=== PATIENT | male | born 1960 | race Caucasian/White ===

== ENCOUNTER 2017-04-26 19:07 | Inpatient (IN) | payer OTHER ==
[2017-04-26 19:28] LABS: ADD MAN DIFF? NO
[2017-04-26 19:31] LABS: BASO # 0.1 x10^3/uL (0.0-0.2); BASO % 1 % (0-3); EOS # 0.3 x10^3/uL (0.0-0.7); EOS % 3 % (0-3); HEMATOCRIT 47.3 % (39.0-53.0); HEMOGLOBIN 15.9 g/dL (13.0-17.5); LYMPH # 2.7 x10^3/uL (1.0-4.8); LYMPH % 29 % (24-48); MEAN CORPUSCULAR HEMOGLOBIN 30 pg (25-35); MEAN CORPUSCULAR HGB CONC 34 g/dL (31-37); MEAN CORPUSCULAR VOLUME 90 fL (79-100); MONO # 0.7 x10^3/uL (0.0-1.1); MONO % 7 % (0-9); NEUT # 5.8 x10^3uL (1.8-7.7); NEUT % 61 % (31-73); PLATELET COUNT 223 x10^3/uL (140-400); RED BLOOD COUNT 5.25 x10^6/uL (4.30-5.70); RED CELL DISTRIBUTION WIDTH 15.3 % (11.5-14.5); WHITE BLOOD COUNT 9.5 x10^3/uL (4.0-11.0)
[2017-04-26] MEDS: IV NORMAL SALINE 1000ML BAG 1,000 ML IV ×2 (19:40→22:22)
[2017-04-26] MEDS: ONDANSETRON PF 4 MG/2 ML VIAL. IV (19:40)
[2017-04-26] MEDS: fentaNYL PF VIAL 100 MCG/2 ML VIAL IV (19:43)
[2017-04-26 19:47] LABS: ANION GAP 10 (6-14); BLOOD UREA NITROGEN 11 mg/dL (8-26); BUN/CREATININE RATIO 8 (6-20); CALCIUM 8.6 mg/dL (8.5-10.1); CARBON DIOXIDE 27 mmol/L (21-32); CHLORIDE 100 mmol/L (98-107); CREATININE 1.3 mg/dL (0.7-1.3); GFR 56.5; GLUCOSE 114 mg/dL (70-99); POTASSIUM 4.1 mmol/L (3.5-5.1); SODIUM 137 mmol/L (136-145)
[2017-04-26 19:53] LABS: ALBUMIN 3.7 g/dL (3.4-5.0); ALBUMIN/GLOBULIN RATIO 0.8 (1.0-1.7); ALK PHOS 106 U/L (46-116); ALT (SGPT) 15 U/L (16-63); AST (SGOT) 33 U/L (15-37); LIPASE 412 U/L (73-393); TOTAL BILIRUBIN 0.4 mg/dL (0.2-1.0); TOTAL PROTEIN 8.2 g/dL (6.4-8.2)
[2017-04-26] MEDS: MORPHINE SULFATE 4 MG/ML DISP.SYRIN. IV ×2 (20:37→22:22)
[2017-04-26] MEDS ORDERED: ONDANSETRON PF 4 MG/2 ML VIAL. IV (21:00)
[2017-04-26] MEDS: IPRATRPIUM/ALBUTEROL 0.5/2.5MG 3 ML NEBU. NEB (21:14)
[2017-04-26 22:01] LABS: BILIRUBIN,URINE NEGATIVE (NEG); CLARITY,URINE TURBID; COLOR,URINE YELLOW; GLUCOSE,URINE NEGATIVE (NEG); NITRITE,URINE NEGATIVE (NEG); PROTEIN,URINE 100 mg/dL (NEG-TRACE)
[2017-04-26 22:15] LABS: BACTERIA,URINE FEW /HPF (0-FEW); HYALINE CASTS, URINE FEW /HPF; RBC,URINE 0 /HPF (0-2)
[2017-04-27] MEDS: MORPHINE SULFATE 4 MG/ML DISP.SYRIN. IV ×3 (00:28→09:01)
[2017-04-27 06:08] LABS: ADD MAN DIFF? NO; BASO % 1 % (0-3); EOS # 0.2 x10^3/uL (0.0-0.7); EOS % 3 % (0-3); HEMATOCRIT 45.5 % (39.0-53.0); HEMOGLOBIN 15.1 g/dL (13.0-17.5); LYMPH % 26 % (24-48); MEAN CORPUSCULAR HEMOGLOBIN 31 pg (25-35); MEAN CORPUSCULAR HGB CONC 33 g/dL (31-37); MEAN CORPUSCULAR VOLUME 93 fL (79-100); MONO # 0.6 x10^3/uL (0.0-1.1); MONO % 7 % (0-9); NEUT % 63 % (31-73); PLATELET COUNT 199 x10^3/uL (140-400); RED BLOOD COUNT 4.92 x10^6/uL (4.30-5.70); RED CELL DISTRIBUTION WIDTH 15.1 % (11.5-14.5); WHITE BLOOD COUNT 7.9 x10^3/uL (4.0-11.0)
[2017-04-27 06:20] LABS: ANION GAP 7 (6-14); BLOOD UREA NITROGEN 12 mg/dL (8-26); CALCIUM 8.2 mg/dL (8.5-10.1); CARBON DIOXIDE 30 mmol/L (21-32); CHLORIDE 103 mmol/L (98-107); CREATININE 1.4 mg/dL (0.7-1.3); GFR 51.9; GLUCOSE 123 mg/dL (70-99); SODIUM 140 mmol/L (136-145)
[2017-04-27] MEDS: IV NORMAL SALINE 1000ML BAG 1,000 ML IV ×3 (06:27→21:01)
[2017-04-27] MEDS ORDERED: ONDANSETRON PF 4 MG/2 ML VIAL. IV (07:00)
[2017-04-27] MEDS ORDERED: ACETAMINOPHEN 500 MG TABLET PO (07:00)
[2017-04-27] MEDS ORDERED: NON FORMULARY ITEM (Albuterol Sulfate (Ventolin Hfa Inhaler) 2 PUFF) INH (08:00)
[2017-04-27] MEDS: METOPROLOL TART IMMED RELEASE 25 MG TABLET. PO (08:59)
[2017-04-27] MEDS: LEVOTHYROXINE 100 MCG TABLET PO (08:59)
[2017-04-27] MEDS: hydroCHLOROthiazide 25 MG TABLET PO (09:00)
[2017-04-27] MEDS: CYCLOBENZAPRINE 10 MG TABLET. PO (09:00)
[2017-04-27] MEDS: POTASSIUM CHLORIDE 20 MEQ TABLET.ER. PO (09:00)
[2017-04-27] MEDS ORDERED: NON FORMULARY ITEM (Tiotropium Bromide (Spiriva) 2 INH) IH (09:00)
[2017-04-27] MEDS: FUROSEMIDE 20 MG TABLET PO (09:00)
[2017-04-27] MEDS: PANTOPRAZOLE 40 MG TABLET.DR. PO (09:00)
[2017-04-27] MEDS: ISOSORBIDE MONONITRATE ER 30 MG TAB.ER.24H PO (09:00)
[2017-04-27] MEDS: LISINOPRIL 20 MG TABLET PO (09:00)
[2017-04-27] MEDS: BUDESONIDE 0.5 MG/2 ML NEBU. NEB ×2 (10:53→20:27)
[2017-04-27] MEDS: ALBUTEROL SULFATE 2.5 MG/3 ML NEBU. NEB ×2 (10:54→15:28)
[2017-04-27 17:41] LABS: POC GLUCOSE 92 mg/dL (70-99)
[2017-04-27 18:00] LABS: BASE EXCESS ABG -2 mmol/L (-3-3); HCO3 ABG 27 mmol/L (21-28); PCO2 ABG 58 mmHg (35-46); PH ABG 7.27 (7.35-7.45); PO2 ABG 88 mmHg (65-108); SAT O2 ABG 96 % (92-99)
[2017-04-27 18:32] LABS: ANION GAP 7 (6-14); BLOOD UREA NITROGEN 17 mg/dL (8-26); CARBON DIOXIDE 29 mmol/L (21-32); CHLORIDE 104 mmol/L (98-107); CREATININE 2.3 mg/dL (0.7-1.3); GFR 29.2; GLUCOSE 98 mg/dL (70-99); POTASSIUM 4.8 mmol/L (3.5-5.1); SODIUM 140 mmol/L (136-145)
[2017-04-27 18:33] LABS: LIPASE 307 U/L (73-393)
[2017-04-27] MEDS: IPRATRPIUM/ALBUTEROL 0.5/2.5MG 3 ML NEBU. NEB (20:27)
[2017-04-27] MEDS: SIMVASTATIN 20 MG TABLET PO (21:00)
[2017-04-27 22:06] LABS: BASE EXCESS ABG -5 mmol/L (-3-3); HCO3 ABG 24 mmol/L (21-28); PCO2 ABG 59 mmHg (35-46); PO2 ABG 67 mmHg (65-108); SAT O2 ABG 92 % (92-99)
[2017-04-27 22:07] LABS: PH ABG 7.22 (7.35-7.45)
[2017-04-27 22:11] LABS: LACTIC ACID 0.4 mmol/L (0.4-2.0)
[2017-04-27 22:22] LABS: FREE T4 0.32 ng/dL (0.76-1.46)
[2017-04-27 22:45] LABS: THYROID STIM HORMONE (TSH) 99.282 uIU/mL (0.358-3.74)
[2017-04-28 06:23] LABS: ANION GAP 9 (6-14); BLOOD UREA NITROGEN 17 mg/dL (8-26); CALCIUM 7.7 mg/dL (8.5-10.1); CARBON DIOXIDE 27 mmol/L (21-32); CHLORIDE 105 mmol/L (98-107); CREATININE 2.4 mg/dL (0.7-1.3); GFR 27.8; GLUCOSE 67 mg/dL (70-99); LIPASE 258 U/L (73-393); POTASSIUM 4.4 mmol/L (3.5-5.1); SODIUM 141 mmol/L (136-145)
[2017-04-28] MEDS: POTASSIUM CHLORIDE 20 MEQ TABLET.ER. PO (07:52)
[2017-04-28] MEDS: PANTOPRAZOLE 40 MG TABLET.DR. PO (07:52)
[2017-04-28] MEDS: LEVOTHYROXINE 100 MCG TABLET PO (07:52)
[2017-04-28] MEDS: IV DEXTROSE 5 %-0.45 % NACL 1,000 ML IV ×2 (07:52→21:20)
[2017-04-28] MEDS: BUDESONIDE 0.5 MG/2 ML NEBU. NEB ×2 (07:54→21:04)
[2017-04-28] MEDS: IPRATRPIUM/ALBUTEROL 0.5/2.5MG 3 ML NEBU. NEB ×4 (07:55→21:04)
[2017-04-28 08:30] LABS: BASE EXCESS ABG 0 mmol/L (-3-3); HCO3 ABG 27 mmol/L (21-28); PO2 ABG 65 mmHg (65-108); SAT O2 ABG 93 % (92-99)
[2017-04-28 09:13] LABS: PH ABG 7.34 (7.35-7.45)
[2017-04-28 09:14] LABS: FIO2 ABG 24; PCO2 ABG 51 mmHg (35-46)
[2017-04-28 09:32] LABS: TROPONINI < 0.017 ng/mL (0.000-0.055)
[2017-04-28 10:53] LABS: ALBUMIN 3.2 g/dL (3.4-5.0); ALK PHOS 78 U/L (46-116); ALT (SGPT) 11 U/L (16-63); AST (SGOT) 27 U/L (15-37); DIRECT BILIRUBIN 0.1 mg/dL (0.0-0.2); TOTAL BILIRUBIN 0.5 mg/dL (0.2-1.0); TOTAL PROTEIN 6.7 g/dL (6.4-8.2)
[2017-04-28] MEDS: HEPARIN PF for SUB-Q USE 5,000 UNIT/0.5 ML VIAL. SQ ×2 (14:00→22:06)
[2017-04-28] MEDS: HYDROcodone/APAP 7.5/325MG 1 TAB TABLET PO (15:07)
[2017-04-28] MEDS: MORPHINE SULFATE 2 MG/ML DISP.SYRIN. IV ×3 (15:07→22:34)
[2017-04-28] MEDS: AMINO AC 3%/ELECTROLYTE/GLYCER 1,000 ML IV (17:30)
[2017-04-28] MEDS: hydrALAZINE 20 MG/ML VIAL. IVP ×2 (18:18→22:06)
[2017-04-28] MEDS: SIMVASTATIN 20 MG TABLET PO (21:00)
[2017-04-28 23:08] LABS: MRSA BY PCR Negative (Negative)
[2017-04-29] MEDS: HALOPERIDOL LACTATE 5 MG/ML VIAL. IVP ×5 (00:02→22:07)
[2017-04-29] MEDS: hydrALAZINE 20 MG/ML VIAL. IVP ×4 (02:51→19:05)
[2017-04-29] MEDS: MORPHINE SULFATE 2 MG/ML DISP.SYRIN. IV (03:35)
[2017-04-29 05:09] LABS: ADD MAN DIFF? NO
[2017-04-29 05:16] LABS: BASO % 0 % (0-3); EOS # 0.2 x10^3/uL (0.0-0.7); EOS % 2 % (0-3); LYMPH # 2.9 x10^3/uL (1.0-4.8); LYMPH % 33 % (24-48); MEAN CORPUSCULAR HEMOGLOBIN 30 pg (25-35); MEAN CORPUSCULAR HGB CONC 33 g/dL (31-37); MEAN CORPUSCULAR VOLUME 91 fL (79-100); MONO # 0.6 x10^3/uL (0.0-1.1); MONO % 7 % (0-9); NEUT % 58 % (31-73); PLATELET COUNT 204 x10^3/uL (140-400); RED BLOOD COUNT 4.93 x10^6/uL (4.30-5.70); RED CELL DISTRIBUTION WIDTH 15.6 % (11.5-14.5); WHITE BLOOD COUNT 8.8 x10^3/uL (4.0-11.0)
[2017-04-29] MEDS: HEPARIN PF for SUB-Q USE 5,000 UNIT/0.5 ML VIAL. SQ ×3 (05:55→22:13)
[2017-04-29 05:56] LABS: ALBUMIN 3.4 g/dL (3.4-5.0); ALBUMIN/GLOBULIN RATIO 0.8 (1.0-1.7); ALK PHOS 80 U/L (46-116); ALT (SGPT) 13 U/L (16-63); ANION GAP 11 (6-14); AST (SGOT) 28 U/L (15-37); BLOOD UREA NITROGEN 16 mg/dL (8-26); BUN/CREATININE RATIO 15 (6-20); CALCIUM 8.9 mg/dL (8.5-10.1); CARBON DIOXIDE 25 mmol/L (21-32); CHLORIDE 99 mmol/L (98-107); CREATININE 1.1 mg/dL (0.7-1.3); GFR 68.5; GLUCOSE 117 mg/dL (70-99); LIPASE 190 U/L (73-393); POTASSIUM 3.9 mmol/L (3.5-5.1); SODIUM 135 mmol/L (136-145); TOTAL BILIRUBIN 0.6 mg/dL (0.2-1.0); TOTAL PROTEIN 7.5 g/dL (6.4-8.2)
[2017-04-29] MEDS: LEVOTHYROXINE 100 MCG TABLET PO (07:00)
[2017-04-29] MEDS: PANTOPRAZOLE 40 MG TABLET.DR. PO (07:30)
[2017-04-29] MEDS: POTASSIUM CHLORIDE 20 MEQ TABLET.ER. PO (08:00)
[2017-04-29] MEDS: IPRATRPIUM/ALBUTEROL 0.5/2.5MG 3 ML NEBU. NEB ×4 (08:38→19:55)
[2017-04-29] MEDS: BUDESONIDE 0.5 MG/2 ML NEBU. NEB ×2 (08:38→19:55)
[2017-04-29 08:52] LABS: BASE EXCESS ABG -1 mmol/L (-3-3); HCO3 ABG 23 mmol/L (21-28); PO2 ABG 84 mmHg (65-108); SAT O2 ABG 96 % (92-99)
[2017-04-29 08:54] LABS: PH ABG 7.41 (7.35-7.45)
[2017-04-29 08:55] LABS: PCO2 ABG 37 mmHg (35-46)
[2017-04-29] MEDS: AMINO AC 3%/ELECTROLYTE/GLYCER 1,000 ML IV ×2 (08:58→17:57)
[2017-04-29] MEDS ORDERED: cloNIDine HCL 0.1 MG TABLET PO (09:45)
[2017-04-29] MEDS: IV DEXTROSE 5 %-0.45 % NACL 1,000 ML IV (10:40)
[2017-04-29] MEDS: SIMVASTATIN 20 MG TABLET PO (20:35)
[2017-04-30] MEDS: hydrALAZINE 20 MG/ML VIAL. IVP ×4 (04:07→23:11)
[2017-04-30 05:12] LABS: ADD MAN DIFF? NO
[2017-04-30 05:26] LABS: BASO % 0 % (0-3); EOS # 0.1 x10^3/uL (0.0-0.7); EOS % 1 % (0-3); HEMATOCRIT 47.2 % (39.0-53.0); HEMOGLOBIN 15.8 g/dL (13.0-17.5); LYMPH # 1.2 x10^3/uL (1.0-4.8); LYMPH % 11 % (24-48); MEAN CORPUSCULAR HEMOGLOBIN 31 pg (25-35); MEAN CORPUSCULAR HGB CONC 33 g/dL (31-37); MEAN CORPUSCULAR VOLUME 92 fL (79-100); MONO # 0.7 x10^3/uL (0.0-1.1); MONO % 6 % (0-9); NEUT # 8.9 x10^3uL (1.8-7.7); NEUT % 81 % (31-73); PLATELET COUNT 240 x10^3/uL (140-400); RED BLOOD COUNT 5.16 x10^6/uL (4.30-5.70); RED CELL DISTRIBUTION WIDTH 15.6 % (11.5-14.5)
[2017-04-30 06:00] LABS: ALBUMIN 3.1 g/dL (3.4-5.0); ALBUMIN/GLOBULIN RATIO 0.7 (1.0-1.7); ALK PHOS 79 U/L (46-116); ALT (SGPT) 8 U/L (16-63); ANION GAP 10 (6-14); AST (SGOT) 28 U/L (15-37); BLOOD UREA NITROGEN 16 mg/dL (8-26); BUN/CREATININE RATIO 15 (6-20); CALCIUM 8.8 mg/dL (8.5-10.1); CARBON DIOXIDE 26 mmol/L (21-32); CHLORIDE 96 mmol/L (98-107); CREATININE 1.1 mg/dL (0.7-1.3); GFR 68.5; GLUCOSE 121 mg/dL (70-99); LIPASE 147 U/L (73-393); SODIUM 132 mmol/L (136-145); TOTAL BILIRUBIN 0.8 mg/dL (0.2-1.0); TOTAL PROTEIN 7.4 g/dL (6.4-8.2)
[2017-04-30] MEDS: HALOPERIDOL LACTATE 5 MG/ML VIAL. IVP ×3 (06:22→21:25)
[2017-04-30] MEDS: HEPARIN PF for SUB-Q USE 5,000 UNIT/0.5 ML VIAL. SQ ×3 (06:24→21:26)
[2017-04-30] MEDS: LEVOTHYROXINE 100 MCG TABLET PO (07:00)
[2017-04-30] MEDS: PANTOPRAZOLE 40 MG TABLET.DR. PO (07:30)
[2017-04-30] MEDS: POTASSIUM CHLORIDE 20 MEQ TABLET.ER. PO (08:00)
[2017-04-30] MEDS: IPRATRPIUM/ALBUTEROL 0.5/2.5MG 3 ML NEBU. NEB ×3 (08:19→20:04)
[2017-04-30] MEDS: BUDESONIDE 0.5 MG/2 ML NEBU. NEB ×2 (08:19→20:04)
[2017-04-30] MEDS: IV DEXTROSE 5 %-0.45 % NACL 1,000 ML IV ×2 (09:10)
[2017-04-30] MEDS: LEVOTHYROXINE SODIUM 50 MCG in IV NORMAL SALINE 50ML 5 ML IVP (10:12)
[2017-04-30] MEDS: AMINO AC 3%/ELECTROLYTE/GLYCER 1,000 ML IV (10:56)
[2017-04-30] MEDS: PANTOPRAZOLE IV PUSH 40 MG VIAL. IVP (10:57)
[2017-04-30] MEDS: SIMVASTATIN 20 MG TABLET PO (21:00)
[2017-05-01] MEDS: AMINO AC 3%/ELECTROLYTE/GLYCER 1,000 ML IV ×2 (02:05→08:00)
[2017-05-01] MEDS: IV DEXTROSE 5 %-0.45 % NACL 1,000 ML IV (02:40)
[2017-05-01 05:24] LABS: ADD MAN DIFF? NO
[2017-05-01 05:33] LABS: BASO % 0 % (0-3); EOS # 0.1 x10^3/uL (0.0-0.7); EOS % 2 % (0-3); HEMATOCRIT 47.9 % (39.0-53.0); LYMPH # 1.6 x10^3/uL (1.0-4.8); LYMPH % 19 % (24-48); MEAN CORPUSCULAR HEMOGLOBIN 31 pg (25-35); MEAN CORPUSCULAR HGB CONC 33 g/dL (31-37); MEAN CORPUSCULAR VOLUME 91 fL (79-100); MONO # 0.6 x10^3/uL (0.0-1.1); MONO % 7 % (0-9); NEUT % 72 % (31-73); PLATELET COUNT 232 x10^3/uL (140-400); RED BLOOD COUNT 5.24 x10^6/uL (4.30-5.70); RED CELL DISTRIBUTION WIDTH 15.6 % (11.5-14.5); WHITE BLOOD COUNT 8.3 x10^3/uL (4.0-11.0)
[2017-05-01] MEDS: HALOPERIDOL LACTATE 5 MG/ML VIAL. IVP ×3 (06:01→21:21)
[2017-05-01] MEDS: HEPARIN PF for SUB-Q USE 5,000 UNIT/0.5 ML VIAL. SQ ×3 (06:02→21:44)
[2017-05-01 06:04] LABS: ALBUMIN 3.1 g/dL (3.4-5.0); ALBUMIN/GLOBULIN RATIO 0.7 (1.0-1.7); ALK PHOS 86 U/L (46-116); ALT (SGPT) 14 U/L (16-63); ANION GAP 9 (6-14); AST (SGOT) 34 U/L (15-37); BLOOD UREA NITROGEN 19 mg/dL (8-26); BUN/CREATININE RATIO 19 (6-20); CALCIUM 8.6 mg/dL (8.5-10.1); CARBON DIOXIDE 25 mmol/L (21-32); CHLORIDE 96 mmol/L (98-107); GFR 76.5; GLUCOSE 111 mg/dL (70-99); LIPASE 188 U/L (73-393); POTASSIUM 4.2 mmol/L (3.5-5.1); SODIUM 130 mmol/L (136-145); TOTAL BILIRUBIN 0.8 mg/dL (0.2-1.0); TOTAL PROTEIN 7.5 g/dL (6.4-8.2)
[2017-05-01] MEDS: POTASSIUM CHLORIDE 20 MEQ TABLET.ER. PO (08:00)
[2017-05-01] MEDS: IPRATRPIUM/ALBUTEROL 0.5/2.5MG 3 ML NEBU. NEB ×4 (08:07→20:18)
[2017-05-01] MEDS: BUDESONIDE 0.5 MG/2 ML NEBU. NEB ×2 (08:07→20:18)
[2017-05-01] MEDS: PANTOPRAZOLE IV PUSH 40 MG VIAL. IVP (08:27)
[2017-05-01] MEDS: LEVOTHYROXINE SODIUM 50 MCG in IV NORMAL SALINE 50ML 5 ML IVP (08:28)
[2017-05-01] MEDS ORDERED: DEXAMETHASONE SOD PHOS 20 MG/5 ML VIAL. (09:10)
[2017-05-01] MEDS ORDERED: PROPOFOL 20 ML IV (09:10)
[2017-05-01] MEDS ORDERED: LIDOCAINE 2% PF Vial for OR 5 ML VIAL. (09:10)
[2017-05-01] MEDS ORDERED: MIDAZOLAM HCL/PF 2 MG/2 ML VIAL. ×2 (09:10→09:58)
[2017-05-01] MEDS ORDERED: fentaNYL PF VIAL 100 MCG/2 ML VIAL (09:10)
[2017-05-01] MEDS ORDERED: ONDANSETRON PF 4 MG/2 ML VIAL. (09:10)
[2017-05-01] MEDS ORDERED: ROCURONIUM 50 MG/5 ML VIAL. (09:10)
[2017-05-01] MEDS ORDERED: IOHEXOL 300 MG/ML 100ML VIAL. (09:55)
[2017-05-01] MEDS ORDERED: SURGICEL HEMOSTAT 4X8 EACH. (09:55)
[2017-05-01] MEDS: IV RINGERS,LACTATED 1000ML 1,000 ML IV (10:21)
[2017-05-01] MEDS ORDERED: fentaNYL PF VIAL 100 MCG/2 ML VIAL IV (10:30)
[2017-05-01] MEDS ORDERED: MORPHINE SULFATE 2 MG/ML DISP.SYRIN. IV (10:30)
[2017-05-01] MEDS ORDERED: LIDOCAINE 1% PF 2 ML VIAL. ID (10:30)
[2017-05-01] MEDS ORDERED: HYDROmorphone 2 MG/ML VIAL IV (10:30)
[2017-05-01] MEDS ORDERED: ONDANSETRON PF 4 MG/2 ML VIAL. IV (10:30)
[2017-05-01] MEDS ORDERED: PROCHLORPERAZINE 10 MG/2 ML VIAL. IV (10:30)
[2017-05-01] MEDS ORDERED: ePHEDrine PF IN SALINE 50 MG/5 ML DISP.SYRIN IV ×2 (11:10→11:34)
[2017-05-01] MEDS: ELECTROLYTE IV (11:12)
[2017-05-01] MEDS: SODIUM CHLORIDE IV (11:12)
[2017-05-01] MEDS: GLYCER IV (11:12)
[2017-05-01] MEDS: AMINO AC IV (11:12)
[2017-05-01] MEDS ORDERED: ceFAZolin 1GM IVPB FOR OMNI 100 ML IV (11:15)
[2017-05-01] MEDS: BUPIVAC MPF-EPI 0.5%-1:200000 30 ML VIAL. (11:21)
[2017-05-01] MEDS ORDERED: ALBUMIN HUMAN 5% 500 ML IV (11:35)
[2017-05-01] MEDS ORDERED: EPINEPHrine SYRINGE 1 MG/10 ML SYRINGE (11:39)
[2017-05-01] MEDS ORDERED: PHENYLEPHRINE in 0.9% NACL PF 1 MG/10 ML SYRINGE. IV (11:52)
[2017-05-01] MEDS: fentaNYL PF VIAL 100 MCG/2 ML VIAL IV ×2 (12:32→12:48)
[2017-05-01] MEDS ORDERED: PROPOFOL 100 ML IV (12:46)
[2017-05-01] MEDS: PROPOFOL 100 ML IV (12:55)
[2017-05-01] MEDS: MORPHINE SULFATE 2 MG/ML DISP.SYRIN. IV (12:56)
[2017-05-01] MEDS: ALBUMIN HUMAN 5% 500 ML IV (16:09)
[2017-05-01] MEDS: MULTIVIT INFUSN,ADULT 4,VIT K 10 ML, THIAMINE 100 MG, FOLIC ACID 1 MG in IV RINGERS,LAC... IV (16:12)
[2017-05-01] MEDS: MIDAZOLAM 100MG/100ML PREMIX 100 ML IV (16:27)
[2017-05-01] MEDS: IV NORMAL SALINE 1000ML BAG 1,000 ML IV (17:00)
[2017-05-01] MEDS ORDERED: PIP/TAZO PER PHARMACY MC (17:15)
[2017-05-01] MEDS: PIPERACILLIN/TAZO IV Push 3.375 GM VIAL. IVP (18:32)
[2017-05-01] MEDS: SIMVASTATIN 20 MG TABLET PO (21:20)
[2017-05-01] MEDS: LACTOBACILLUS RHAMNOSUS GG 1 CAPSULE. PO (21:20)
[2017-05-02] MEDS: PIPERACILLIN/TAZO IV Push 3.375 GM VIAL. IVP ×4 (00:12→18:24)
[2017-05-02] MEDS: ELECTROLYTE IV ×2 (01:48→15:29)
[2017-05-02] MEDS: GLYCER IV ×2 (01:48→15:29)
[2017-05-02] MEDS: AMINO AC IV ×2 (01:48→15:29)
[2017-05-02] MEDS: SODIUM CHLORIDE IV ×2 (01:48→15:29)
[2017-05-02] MEDS: MIDAZOLAM 100MG/100ML PREMIX 100 ML IV ×2 (05:18→20:09)
[2017-05-02 05:51] LABS: ADD MAN DIFF? NO
[2017-05-02 05:57] LABS: BASO % 0 % (0-3); EOS # 0.1 x10^3/uL (0.0-0.7); EOS % 2 % (0-3); HEMATOCRIT 38.8 % (39.0-53.0); HEMOGLOBIN 12.6 g/dL (13.0-17.5); LYMPH # 1.4 x10^3/uL (1.0-4.8); LYMPH % 19 % (24-48); MEAN CORPUSCULAR HEMOGLOBIN 30 pg (25-35); MEAN CORPUSCULAR HGB CONC 33 g/dL (31-37); MEAN CORPUSCULAR VOLUME 93 fL (79-100); MONO # 0.6 x10^3/uL (0.0-1.1); MONO % 8 % (0-9); NEUT # 5.4 x10^3uL (1.8-7.7); NEUT % 71 % (31-73); PLATELET COUNT 193 x10^3/uL (140-400); RED BLOOD COUNT 4.16 x10^6/uL (4.30-5.70); WHITE BLOOD COUNT 7.6 x10^3/uL (4.0-11.0)
[2017-05-02] MEDS: HEPARIN PF for SUB-Q USE 5,000 UNIT/0.5 ML VIAL. SQ ×3 (06:01→22:03)
[2017-05-02] MEDS: HALOPERIDOL LACTATE 5 MG/ML VIAL. IVP ×5 (06:01→22:03)
[2017-05-02 06:39] LABS: ALBUMIN 3.2 g/dL (3.4-5.0); ALBUMIN/GLOBULIN RATIO 0.9 (1.0-1.7); ALK PHOS 62 U/L (46-116); ALT (SGPT) 19 U/L (16-63); ANION GAP 9 (6-14); AST (SGOT) 56 U/L (15-37); BLOOD UREA NITROGEN 24 mg/dL (8-26); BUN/CREATININE RATIO 16 (6-20); CALCIUM 7.9 mg/dL (8.5-10.1); CARBON DIOXIDE 25 mmol/L (21-32); CHLORIDE 102 mmol/L (98-107); CREATININE 1.5 mg/dL (0.7-1.3); GFR 47.9; GLUCOSE 102 mg/dL (70-99); LIPASE 181 U/L (73-393); POTASSIUM 4.5 mmol/L (3.5-5.1); SODIUM 136 mmol/L (136-145); TOTAL BILIRUBIN 0.6 mg/dL (0.2-1.0); TOTAL PROTEIN 6.6 g/dL (6.4-8.2)
[2017-05-02] MEDS: MORPHINE SULFATE 2 MG/ML DISP.SYRIN. IV ×4 (07:39→19:30)
[2017-05-02] MEDS: IPRATRPIUM/ALBUTEROL 0.5/2.5MG 3 ML NEBU. NEB ×4 (07:52→19:59)
[2017-05-02] MEDS: BUDESONIDE 0.5 MG/2 ML NEBU. NEB ×2 (07:52→19:59)
[2017-05-02] MEDS: PANTOPRAZOLE IV PUSH 40 MG VIAL. IVP (08:39)
[2017-05-02] MEDS: THIAMINE 100 MG TABLET. PO (08:39)
[2017-05-02] MEDS: FOLIC/VIT B COMP W-C (RENAL) TABLET. PO (08:39)
[2017-05-02] MEDS: LEVOTHYROXINE SODIUM 50 MCG in IV NORMAL SALINE 50ML 5 ML IVP (08:39)
[2017-05-02] MEDS: LACTOBACILLUS RHAMNOSUS GG 1 CAPSULE. PO ×2 (08:39→21:21)
[2017-05-02] MEDS: POTASSIUM CHLORIDE 20 MEQ TABLET.ER. PO (08:40)
[2017-05-02 09:15] LABS: BASE EXCESS ABG -1 mmol/L (-3-3); HCO3 ABG 24 mmol/L (21-28); PCO2 ABG 41 mmHg (35-46); PH ABG 7.39 (7.35-7.45); PO2 ABG 81 mmHg (65-108); SAT O2 ABG 96 % (92-99)
[2017-05-02 09:18] LABS: FIO2 ABG 40
[2017-05-02] MEDS: SIMVASTATIN 20 MG TABLET PO (21:21)
[2017-05-02] MEDS: CHLORHEXIDINE 0.12% 15 ML MOUTHWASH. MM (21:21)
[2017-05-03] MEDS: PIPERACILLIN/TAZO IV Push 3.375 GM VIAL. IVP ×5 (00:30→23:54)
[2017-05-03] MEDS: MORPHINE SULFATE 2 MG/ML DISP.SYRIN. IV ×3 (00:30→23:56)
[2017-05-03] MEDS: HALOPERIDOL LACTATE 5 MG/ML VIAL. IVP ×3 (05:52→22:05)
[2017-05-03] MEDS: GLYCER IV ×3 (05:52→19:19)
[2017-05-03] MEDS: SODIUM CHLORIDE IV ×3 (05:52→19:19)
[2017-05-03] MEDS: AMINO AC IV ×3 (05:52→19:19)
[2017-05-03] MEDS: ELECTROLYTE IV ×3 (05:52→19:19)
[2017-05-03] MEDS: HEPARIN PF for SUB-Q USE 5,000 UNIT/0.5 ML VIAL. SQ ×3 (05:53→22:06)
[2017-05-03 06:40] LABS: ADD MAN DIFF? NO
[2017-05-03 06:47] LABS: BASO % 1 % (0-3); EOS # 0.2 x10^3/uL (0.0-0.7); EOS % 3 % (0-3); HEMATOCRIT 36.5 % (39.0-53.0); HEMOGLOBIN 11.9 g/dL (13.0-17.5); LYMPH # 1.7 x10^3/uL (1.0-4.8); LYMPH % 25 % (24-48); MEAN CORPUSCULAR HEMOGLOBIN 30 pg (25-35); MEAN CORPUSCULAR HGB CONC 33 g/dL (31-37); MEAN CORPUSCULAR VOLUME 92 fL (79-100); MONO # 0.6 x10^3/uL (0.0-1.1); MONO % 9 % (0-9); NEUT # 4.3 x10^3uL (1.8-7.7); NEUT % 63 % (31-73); PLATELET COUNT 180 x10^3/uL (140-400); RED BLOOD COUNT 3.97 x10^6/uL (4.30-5.70); WHITE BLOOD COUNT 6.9 x10^3/uL (4.0-11.0)
[2017-05-03 07:10] LABS: ALBUMIN 2.8 g/dL (3.4-5.0); ALBUMIN/GLOBULIN RATIO 0.8 (1.0-1.7); ALK PHOS 69 U/L (46-116); ALT (SGPT) 20 U/L (16-63); ANION GAP 7 (6-14); AST (SGOT) 52 U/L (15-37); BLOOD UREA NITROGEN 23 mg/dL (8-26); BUN/CREATININE RATIO 19 (6-20); CALCIUM 8.3 mg/dL (8.5-10.1); CARBON DIOXIDE 26 mmol/L (21-32); CHLORIDE 103 mmol/L (98-107); CREATININE 1.2 mg/dL (0.7-1.3); GLUCOSE 107 mg/dL (70-99); LIPASE 174 U/L (73-393); POTASSIUM 4.2 mmol/L (3.5-5.1); SODIUM 136 mmol/L (136-145); TOTAL BILIRUBIN 0.6 mg/dL (0.2-1.0); TOTAL PROTEIN 6.2 g/dL (6.4-8.2)
[2017-05-03] MEDS: MIDAZOLAM 100MG/100ML PREMIX 100 ML IV ×2 (08:04→20:38)
[2017-05-03] MEDS: BUDESONIDE 0.5 MG/2 ML NEBU. NEB ×2 (08:49→20:30)
[2017-05-03] MEDS: IPRATRPIUM/ALBUTEROL 0.5/2.5MG 3 ML NEBU. NEB ×4 (08:49→20:30)
[2017-05-03 09:02] LABS: BASE EXCESS ABG -2 mmol/L (-3-3); HCO3 ABG 21 mmol/L (21-28); PCO2 ABG 29 mmHg (35-46); PH ABG 7.47 (7.35-7.45); PO2 ABG 106 mmHg (65-108); SAT O2 ABG 98 % (92-99)
[2017-05-03 09:05] LABS: FIO2 ABG 40
[2017-05-03] MEDS: LEVOTHYROXINE SODIUM 50 MCG in IV NORMAL SALINE 50ML 5 ML IVP (09:22)
[2017-05-03] MEDS: PANTOPRAZOLE IV PUSH 40 MG VIAL. IVP (09:22)
[2017-05-03] MEDS: THIAMINE 100 MG TABLET. PO (09:22)
[2017-05-03] MEDS: FOLIC/VIT B COMP W-C (RENAL) TABLET. PO (09:22)
[2017-05-03] MEDS: CHLORHEXIDINE 0.12% 15 ML MOUTHWASH. MM ×2 (09:22→20:40)
[2017-05-03] MEDS: POTASSIUM CHLORIDE 20 MEQ TABLET.ER. PO (09:27)
[2017-05-03] MEDS: LACTOBACILLUS RHAMNOSUS GG 1 CAPSULE. PO ×2 (09:34→20:38)
[2017-05-03] MEDS: SIMVASTATIN 20 MG TABLET PO (20:38)
[2017-05-04] MEDS: MIDAZOLAM 100MG/100ML PREMIX 100 ML IV (04:07)
[2017-05-04 04:32] LABS: ADD MAN DIFF? NO
[2017-05-04 04:51] LABS: BASO % 0 % (0-3); EOS # 0.2 x10^3/uL (0.0-0.7); EOS % 4 % (0-3); HEMATOCRIT 38.5 % (39.0-53.0); HEMOGLOBIN 12.5 g/dL (13.0-17.5); LYMPH # 1.7 x10^3/uL (1.0-4.8); LYMPH % 26 % (24-48); MEAN CORPUSCULAR HEMOGLOBIN 30 pg (25-35); MEAN CORPUSCULAR HGB CONC 33 g/dL (31-37); MEAN CORPUSCULAR VOLUME 93 fL (79-100); MONO # 0.7 x10^3/uL (0.0-1.1); MONO % 10 % (0-9); NEUT % 60 % (31-73); PLATELET COUNT 176 x10^3/uL (140-400); RED BLOOD COUNT 4.14 x10^6/uL (4.30-5.70); RED CELL DISTRIBUTION WIDTH 16.3 % (11.5-14.5); WHITE BLOOD COUNT 6.7 x10^3/uL (4.0-11.0)
[2017-05-04 04:56] LABS: ALBUMIN 2.8 g/dL (3.4-5.0); ALBUMIN/GLOBULIN RATIO 0.8 (1.0-1.7); ALK PHOS 79 U/L (46-116); ALT (SGPT) 21 U/L (16-63); ANION GAP 8 (6-14); AST (SGOT) 45 U/L (15-37); BLOOD UREA NITROGEN 22 mg/dL (8-26); BUN/CREATININE RATIO 18 (6-20); CALCIUM 8.7 mg/dL (8.5-10.1); CARBON DIOXIDE 28 mmol/L (21-32); CHLORIDE 101 mmol/L (98-107); CREATININE 1.2 mg/dL (0.7-1.3); GLUCOSE 99 mg/dL (70-99); LIPASE 149 U/L (73-393); POTASSIUM 4.3 mmol/L (3.5-5.1); SODIUM 137 mmol/L (136-145); TOTAL BILIRUBIN 0.5 mg/dL (0.2-1.0); TOTAL PROTEIN 6.5 g/dL (6.4-8.2)
[2017-05-04] MEDS: HALOPERIDOL LACTATE 5 MG/ML VIAL. IVP (05:52)
[2017-05-04] MEDS: PIPERACILLIN/TAZO IV Push 3.375 GM VIAL. IVP ×4 (05:52→23:06)
[2017-05-04] MEDS: SODIUM CHLORIDE IV ×3 (06:03→23:06)
[2017-05-04] MEDS: GLYCER IV ×3 (06:03→23:06)
[2017-05-04] MEDS: AMINO AC IV ×3 (06:03→23:06)
[2017-05-04] MEDS: ELECTROLYTE IV ×3 (06:03→23:06)
[2017-05-04] MEDS: HEPARIN PF for SUB-Q USE 5,000 UNIT/0.5 ML VIAL. SQ ×3 (06:05→21:11)
[2017-05-04] MEDS: IPRATRPIUM/ALBUTEROL 0.5/2.5MG 3 ML NEBU. NEB ×4 (07:13→20:02)
[2017-05-04] MEDS: BUDESONIDE 0.5 MG/2 ML NEBU. NEB ×2 (07:13→20:02)
[2017-05-04] MEDS: PANTOPRAZOLE IV PUSH 40 MG VIAL. IVP (07:46)
[2017-05-04] MEDS: FOLIC/VIT B COMP W-C (RENAL) TABLET. PO (07:47)
[2017-05-04] MEDS: LACTOBACILLUS RHAMNOSUS GG 1 CAPSULE. PO ×2 (07:47→21:09)
[2017-05-04] MEDS: THIAMINE 100 MG TABLET. PO (07:47)
[2017-05-04] MEDS: CHLORHEXIDINE 0.12% 15 ML MOUTHWASH. MM (07:48)
[2017-05-04] MEDS: POTASSIUM CHLORIDE 20 MEQ TABLET.ER. PO (08:00)
[2017-05-04] MEDS: LEVOTHYROXINE SODIUM 50 MCG in IV NORMAL SALINE 50ML 5 ML IVP (08:09)
[2017-05-04 09:54] LABS: BASE EXCESS ABG -2 mmol/L (-3-3); HCO3 ABG 23 mmol/L (21-28); PCO2 ABG 39 mmHg (35-46); PH ABG 7.38 (7.35-7.45); PO2 ABG 98 mmHg (65-108); SAT O2 ABG 97 % (92-99)
[2017-05-04 09:56] LABS: FIO2 ABG 40
[2017-05-04] MEDS: MORPHINE SULFATE 2 MG/ML DISP.SYRIN. IV (19:26)
[2017-05-04] MEDS ORDERED: MIDAZOLAM 100MG/100ML PREMIX 100 ML IV (20:45)
[2017-05-04] MEDS: SIMVASTATIN 20 MG TABLET PO (21:09)
[2017-05-04] MEDS: HYDROcodone/APAP 7.5/325MG 1 TAB TABLET PO (23:06)
[2017-05-05 05:46] LABS: ADD MAN DIFF? NO
[2017-05-05] MEDS: PIPERACILLIN/TAZO IV Push 3.375 GM VIAL. IVP ×2 (06:18→12:47)
[2017-05-05 06:20] LABS: BASO % 0 % (0-3); EOS # 0.3 x10^3/uL (0.0-0.7); EOS % 5 % (0-3); HEMATOCRIT 37.5 % (39.0-53.0); HEMOGLOBIN 12.9 g/dL (13.0-17.5); LYMPH # 1.7 x10^3/uL (1.0-4.8); LYMPH % 27 % (24-48); MEAN CORPUSCULAR HEMOGLOBIN 32 pg (25-35); MEAN CORPUSCULAR HGB CONC 34 g/dL (31-37); MEAN CORPUSCULAR VOLUME 93 fL (79-100); MONO # 0.5 x10^3/uL (0.0-1.1); MONO % 8 % (0-9); NEUT # 3.9 x10^3uL (1.8-7.7); NEUT % 60 % (31-73); PLATELET COUNT 212 x10^3/uL (140-400); RED BLOOD COUNT 4.05 x10^6/uL (4.30-5.70); RED CELL DISTRIBUTION WIDTH 15.8 % (11.5-14.5); WHITE BLOOD COUNT 6.5 x10^3/uL (4.0-11.0)
[2017-05-05] MEDS: HYDROcodone/APAP 7.5/325MG 1 TAB TABLET PO ×3 (06:20→20:10)
[2017-05-05] MEDS: HEPARIN PF for SUB-Q USE 5,000 UNIT/0.5 ML VIAL. SQ ×3 (06:22→21:14)
[2017-05-05 06:46] LABS: ALBUMIN 3.1 g/dL (3.4-5.0); ALBUMIN/GLOBULIN RATIO 0.8 (1.0-1.7); ALK PHOS 99 U/L (46-116); ALT (SGPT) 20 U/L (16-63); ANION GAP 8 (6-14); AST (SGOT) 43 U/L (15-37); BLOOD UREA NITROGEN 21 mg/dL (8-26); BUN/CREATININE RATIO 19 (6-20); CALCIUM 8.5 mg/dL (8.5-10.1); CARBON DIOXIDE 28 mmol/L (21-32); CHLORIDE 103 mmol/L (98-107); CREATININE 1.1 mg/dL (0.7-1.3); GFR 68.5; GLUCOSE 88 mg/dL (70-99); SODIUM 139 mmol/L (136-145); TOTAL BILIRUBIN 0.5 mg/dL (0.2-1.0); TOTAL PROTEIN 7.1 g/dL (6.4-8.2)
[2017-05-05] MEDS: THIAMINE 100 MG TABLET. PO (08:11)
[2017-05-05] MEDS: LACTOBACILLUS RHAMNOSUS GG 1 CAPSULE. PO ×2 (08:11→20:10)
[2017-05-05] MEDS: POTASSIUM CHLORIDE 20 MEQ TABLET.ER. PO (08:11)
[2017-05-05] MEDS: FOLIC/VIT B COMP W-C (RENAL) TABLET. PO (08:11)
[2017-05-05] MEDS: PANTOPRAZOLE IV PUSH 40 MG VIAL. IVP (08:11)
[2017-05-05] MEDS: BUDESONIDE 0.5 MG/2 ML NEBU. NEB ×2 (09:37→18:11)
[2017-05-05] MEDS: IPRATRPIUM/ALBUTEROL 0.5/2.5MG 3 ML NEBU. NEB ×4 (09:37→18:11)
[2017-05-05] MEDS: LEVOTHYROXINE SODIUM 50 MCG in IV NORMAL SALINE 50ML 5 ML IVP (11:04)
[2017-05-05] MEDS: SIMVASTATIN 20 MG TABLET PO (20:10)
[2017-05-05] MEDS: AMOXICILLIN/K CLAV 875/125MG TABLET. PO (20:10)
[2017-05-06] MEDS: ALBUTEROL SULFATE 2.5 MG/3 ML NEBU. NEB (02:03)
[2017-05-06 05:10] LABS: ADD MAN DIFF? NO
[2017-05-06 05:21] LABS: BASO % 1 % (0-3); EOS # 0.3 x10^3/uL (0.0-0.7); EOS % 6 % (0-3); HEMATOCRIT 37.3 % (39.0-53.0); HEMOGLOBIN 12.5 g/dL (13.0-17.5); LYMPH # 1.7 x10^3/uL (1.0-4.8); LYMPH % 32 % (24-48); MEAN CORPUSCULAR HEMOGLOBIN 30 pg (25-35); MEAN CORPUSCULAR HGB CONC 34 g/dL (31-37); MEAN CORPUSCULAR VOLUME 91 fL (79-100); MONO # 0.5 x10^3/uL (0.0-1.1); MONO % 9 % (0-9); NEUT # 2.8 x10^3uL (1.8-7.7); NEUT % 52 % (31-73); PLATELET COUNT 224 x10^3/uL (140-400); RED CELL DISTRIBUTION WIDTH 15.2 % (11.5-14.5); WHITE BLOOD COUNT 5.4 x10^3/uL (4.0-11.0)
[2017-05-06] MEDS: HEPARIN PF for SUB-Q USE 5,000 UNIT/0.5 ML VIAL. SQ (05:23)
[2017-05-06] MEDS: HYDROcodone/APAP 7.5/325MG 1 TAB TABLET PO ×2 (05:26→12:18)
[2017-05-06 05:44] LABS: ALBUMIN 3.1 g/dL (3.4-5.0); ALBUMIN/GLOBULIN RATIO 0.9 (1.0-1.7); ALK PHOS 108 U/L (46-116); ALT (SGPT) 11 U/L (16-63); ANION GAP 8 (6-14); AST (SGOT) 45 U/L (15-37); BLOOD UREA NITROGEN 20 mg/dL (8-26); BUN/CREATININE RATIO 18 (6-20); CALCIUM 8.3 mg/dL (8.5-10.1); CARBON DIOXIDE 27 mmol/L (21-32); CHLORIDE 102 mmol/L (98-107); CREATININE 1.1 mg/dL (0.7-1.3); GFR 68.5; GLUCOSE 105 mg/dL (70-99); POTASSIUM 3.8 mmol/L (3.5-5.1); SODIUM 137 mmol/L (136-145); TOTAL BILIRUBIN 0.3 mg/dL (0.2-1.0); TOTAL PROTEIN 6.7 g/dL (6.4-8.2)
[2017-05-06] MEDS: BUDESONIDE 0.5 MG/2 ML NEBU. NEB (06:07)
[2017-05-06] MEDS: IPRATRPIUM/ALBUTEROL 0.5/2.5MG 3 ML NEBU. NEB (06:07)
[2017-05-06] MEDS: FOLIC/VIT B COMP W-C (RENAL) TABLET. PO (09:18)
[2017-05-06] MEDS: PANTOPRAZOLE 40 MG TABLET.DR. PO (09:18)
[2017-05-06] MEDS: AMOXICILLIN/K CLAV 875/125MG TABLET. PO (09:18)
[2017-05-06] MEDS: LEVOTHYROXINE 100 MCG TABLET PO (09:18)
[2017-05-06] MEDS: LACTOBACILLUS RHAMNOSUS GG 1 CAPSULE. PO (09:18)
[2017-05-06] MEDS: THIAMINE 100 MG TABLET. PO (09:18)
[2017-05-06] MEDS: POTASSIUM CHLORIDE 20 MEQ TABLET.ER. PO (09:19)
== END 2017-05-06 12:30 | disposition home health service (06) | DRG 417 ==
LOC: 6 SOUTH 05-05 12:06 → ER 19:07 → 4 NORTH 04-27 19:14 → 1 WEST ICU 04-27 22:35 → 4 NORTH 20:26
PROC: 0FT44ZZ Resection of Gallbladder, Percutaneous Endoscopic Approach (ICD-10-PCS; principal; 2017-05-01 10:15)
PROC: 5A1945Z Respiratory Ventilation, 24-96 Consecutive Hours (ICD-10-PCS; 2017-05-01 10:15)
PROC: 0BH17EZ Insertion of Endotracheal Airway into Trachea, Via Natural or Artificial Opening (ICD-10-PCS; 2017-05-01 10:15)
DX: K85.10 Biliary acute pancreatitis without necrosis or infection (principal); J96.01 Acute respiratory failure with hypoxia; G92 Toxic encephalopathy; N17.9 Acute kidney failure, unspecified; J18.9 Pneumonia, unspecified organism; J90 Pleural effusion, not elsewhere classified; J96.02 Acute respiratory failure with hypercapnia; J44.0 Chronic obstructive pulmonary disease with (acute) lower respiratory infection; K80.10 Calculus of gallbladder with chronic cholecystitis without obstruction; E66.2 Morbid (severe) obesity with alveolar hypoventilation; F10.239 Alcohol dependence with withdrawal, unspecified; J44.1 Chronic obstructive pulmonary disease with (acute) exacerbation; J98.11 Atelectasis; I48.91 Unspecified atrial fibrillation; E03.9 Hypothyroidism, unspecified; F12.90 Cannabis use, unspecified, uncomplicated; F17.210 Nicotine dependence, cigarettes, uncomplicated; G62.9 Polyneuropathy, unspecified; F41.1 Generalized anxiety disorder; F44.5 Conversion disorder with seizures or convulsions; I10 Essential (primary) hypertension; I25.10 Atherosclerotic heart disease of native coronary artery without angina pectoris; K21.9 Gastro-esophageal reflux disease without esophagitis; M10.9 Gout, unspecified; I25.2 Old myocardial infarction; Z68.39 Body mass index [BMI] 39.0-39.9, adult; Z79.02 Long term (current) use of antithrombotics/antiplatelets; Z79.82 Long term (current) use of aspirin; Z95.5 Presence of coronary angioplasty implant and graft; Z68.38 Body mass index [BMI] 38.0-38.9, adult; Z88.8 Allergy status to other drugs, medicaments and biological substances
CPT/HCPCS: 36415; 36600; 71010; 71045; 74018; 76705; 80048; 80053; 80076; 81001; 82805; 82962; 83605; 83690; 84439; 84443; 84481; 84484; 85025; 87070; 87205; 87641; 88304; 93005; 93306; 94002; 94003; 94640; 94660; 94760; 95816; 96361; 96374; 96375; 99285-25; 99406; C9113; J0171; J0360; J0690; J1100; J1630; J2060; J2250; J2270; J2370; J2405; J2543; J2704; J3010; J3490; J7030; J7120; J7613; J7620; J7626; P9045; Q9967

== ENCOUNTER 2018-02-22 19:13 | Inpatient (IN) | payer SELFPAY ==
[~2018-02-22] VITALS: Ht 177.8 cm; Wt 61.0 kg
[~2018-02-22 19:13] MED LIST: AMOX1TAB11 PO; ASPI325T8 PO; Aspirin PO; BUDE10.2; CLOP75TA57 PO; CYCL10TA2 PO; FURO20TA3 PO; HYDR-2679 PO; HYDR-2762 PO; Hydrocodone/Acetaminophen PO; ISOS30TA4 PO; LEVO100T5 PO; LEVO150T PO; LISI1TAB7 PO; Metoprolol Tartrate PO; OMEP20TA8 PO; OXYC1TAB7 PO; POTA20TA82 PO; SIMV10TA PO; SIMV10TA3 PO; SIMV20TA3 PO; TIOT18CA IH; VENTOLIN HFA18 GM INH
[2018-02-22] MEDS ORDERED: IV NORMAL SALINE 1000ML BAG 1,000 ML IV SCH (19:22)
[2018-02-22] MEDS ORDERED: MAGNESIUM SULFATE 2GM 50 ML IV ONE (19:30)
[2018-02-22] MEDS ORDERED: methylPREDNISolone SOD SUCC PF 125 MG/2 ML VIAL. IV ONE (19:30)
[2018-02-22] MEDS ORDERED: ONDANSETRON PF 4 MG/2 ML VIAL. IV ONE (19:30)
[2018-02-22] MEDS ORDERED: MORPHINE SULFATE 4 MG/ML VIAL. IV ONE (19:30)
--- NOTE | 2018-02-22 19:39 | PHYS DOC ---
Past Medical History Past Medical History: COPD, Gallstones, Hypothyroid, IA Past Surgical History: Other Additional Past Surgical Histo: cardiac cath with stent placement on 12/21 Alcohol Use: Rarely Drug Use: Marijuana Adult General Chief Complaint Chief Complaint: SHORTNESS OF BREATH HPI HPI Patient is a 57-year-old male who presents via EMS with report of respiratory distress. Patient reportedly has been having shortness of breath is been worsening over the last week. Shortness of breath has gotten much worse in the last 24 hours. Patient reportedly recently moved into a new apartment building and the apartment that he had moved into was being treated for black mold and apparently there had been a lot of bleach that had been used for the cleaning. Per EMS, patient's nausea and saturation had been in the low 60s upon their arrival. Patient was initiated on CPAP and was given a total of 4 doses of albuterol while in route. On oxygen, patient's O2 sat noted to be in the high 90s. Patient's still very short of breath upon arrival and additional history is limited due to shortness of breath. Review of Systems Review of Systems Constitutional: Denies fever or chills [] Respiratory: Complains of cough and shortness of breath [] Musculoskeletal: Denies back pain or joint pain [] Integument: Denies rash or skin lesions [] Unable to fully assess review of systems due to severity of patient's symptoms. Current Medications Current Medications Current Medications Medications (Trade) Dose Ordered Sig/Genesis Start Time Stop Time Status Last Admin Dose Admin Acetaminophen (Tylenol) 500 mg PRN Q6HRS PRN 02/22/18 22:45 Acetaminophen/ Codeine Phosphate (Tylenol #3) 1 tab PRN Q6HRS PRN 02/22/18 22:45 Albuterol Sulfate (Ventolin Neb Soln) 2.5 mg PRN Q4HRS PRN 02/22/18 23:00 Albuterol/ Ipratropium (Duoneb) 3 ml RTQID 02/23/18 08:00 Budesonide (Pulmicort) 0.5 mg RTBID 02/23/18 08:00 Clopidogrel Bisulfate (Plavix) 75 mg DAILYWBKFT 02/23/18 08:00 Diphenhydramine HCl (Benadryl) 25 mg PRN QHS PRN 02/22/18 22:45 Furosemide (Lasix) 20 mg DAILY 02/23/18 09:00 Hydralazine HCl (Apresoline Inj) 20 mg 1X ONCE 02/22/18 23:00 02/22/18 23:01 02/22/18 22:52 20 MG Isosorbide Mononitrate (Imdur) 30 mg DAILY 02/23/18 09:00 Levothyroxine Sodium (Synthroid) 150 mcg DAILY06 02/23/18 06:00 Lorazepam (Ativan) 1 mg 1X ONCE 02/22/18 22:00 02/22/18 22:01 DC 02/22/18 22:26 1 MG Magnesium Sulfate 50 ml @ 25 mls/hr 1X ONCE 02/22/18 19:30 02/22/18 21:29 DC 02/22/18 20:19 25 MLS/HR Methylprednisolone Sodium Succinate (SOLU-Medrol 125MG VIAL) 125 mg 1X ONCE 02/22/18 19:30 02/22/18 19:32 DC 02/22/18 20:18 125 MG Morphine Sulfate (Morphine Sulfate) 4 mg 1X ONCE 02/22/18 19:30 02/22/18 19:33 DC Non-Formulary Medication (Albuterol Sulfate (Ventolin Hfa Inhaler)) 2 puff Q4HRS 02/23/18 00:00 UNV Non-Formulary Medication (Tiotropium Effie (Spiriva)) 2 inh DAILY 02/23/18 09:00 UNV Ondansetron HCl (Zofran Odt) 4 mg PRN Q6HRS PRN 02/22/18 22:45 Ondansetron HCl (Zofran) 4 mg PRN Q6HRS PRN 02/22/18 22:45 Oxycodone/ Acetaminophen (Percocet 5/325) 1 tab PRN Q4HRS PRN 02/22/18 22:45 Pantoprazole Sodium (Protonix) 40 mg DAILYAC 02/23/18 07:30 Simvastatin (Zocor) 20 mg HS 02/23/18 21:00 Sodium Chloride 1,000 ml @ 100 mls/hr Q10H 02/22/18 19:22 02/23/18 05:21 02/22/18 20:19 100 MLS/HR Allergies Allergies Allergies Coded Allergies Type Severity Reaction Last Updated Verified ibuprofen Allergy Severe Swelling 1/4/18 Yes Physical Exam Physical Exam Constitutional: Well developed, well nourished, in mild respiratory distress. [] HENT: Normocephalic, atraumatic, bilateral external ears normal, oropharynx moist, no oral exudates, nose normal. [] Eyes: PERRLA, EOMI, conjunctiva normal, no discharge. [] Neck: Normal range of motion, no tenderness, supple, no stridor. [] Cardiovascular:Heart rate regular rhythm [] Lungs & Thorax: Lungs demonstrate reduced breath sounds bilaterally with faint expiratory wheezes noted bilaterally[] Abdomen: Bowel sounds normal, soft. [] Skin: Warm, dry, no erythema, no rash. [] Extremities: No tenderness, no cyanosis, no clubbing, ROM intact. [] Neurologic: Alert and oriented, no focal deficits noted. [] Current Patient Data Vital Signs Vital Signs Date Time Temp Pulse Resp B/P (MAP) Pulse Ox O2 Delivery O2 Flow Rate FiO2 02/22/18 22:52 56 202/112 02/22/18 22:15 94 BiPAP/CPAP 02/22/18 19:13 97.4 22 97.4 Lab Values Laboratory Tests Test 02/22/18 19:22 02/22/18 20:08 02/22/18 20:52 O2 Saturation 97 % (92-99) 96 % (92-99) Arterial Blood pH 7.33 (7.35-7.45) L 7.28 (7.35-7.45) L Arterial Blood pCO2 at Patient Temp 69 mmHg (35-46) *H 74 mmHg (35-46) *H Arterial Blood pO2 at Patient Temp 106 mmHg (65-108) 94 mmHg (65-108) Arterial Blood HCO3 36 mmol/L (21-28) H 34 mmol/L (21-28) H Arterial Blood Base Excess 7 mmol/L (-3-3) H 5 mmol/L (-3-3) H White Blood Count 7.1 x10^3/uL (4.0-11.0) Red Blood Count 4.68 x10^6/uL (4.30-5.70) Hemoglobin 14.3 g/dL (13.0-17.5) Hematocrit 42.0 % (39.0-53.0) Mean Corpuscular Volume 90 fL (79-100) Mean Corpuscular Hemoglobin 31 pg (25-35) Mean Corpuscular Hemoglobin Concent 34 g/dL (31-37) Red Cell Distribution Width 15.1 % (11.5-14.5) H Platelet Count 208 x10^3/uL (140-400) Neutrophils (%) (Auto) 68 % (31-73) Lymphocytes (%) (Auto) 20 % (24-48) L Monocytes (%) (Auto) 7 % (0-9) Eosinophils (%) (Auto) 5 % (0-3) H Basophils (%) (Auto) 1 % (0-3) Neutrophils # (Auto) 4.8 x10^3uL (1.8-7.7) Lymphocytes # (Auto) 1.4 x10^3/uL (1.0-4.8) Monocytes # (Auto) 0.5 x10^3/uL (0.0-1.1) Eosinophils # (Auto) 0.3 x10^3/uL (0.0-0.7) Basophils # (Auto) 0.0 x10^3/uL (0.0-0.2) Sodium Level 141 mmol/L (136-145) Potassium Level 4.0 mmol/L (3.5-5.1) Chloride Level 100 mmol/L (98-107) Carbon Dioxide Level 37 mmol/L (21-32) H Anion Gap 4 (6-14) L Blood Urea Nitrogen 18 mg/dL (8-26) Creatinine 1.4 mg/dL (0.7-1.3) H Estimated GFR (Cockcroft-Gault) 51.9 BUN/Creatinine Ratio 13 (6-20) Glucose Level 100 mg/dL (70-99) H Calcium Level 9.2 mg/dL (8.5-10.1) Total Bilirubin 0.4 mg/dL (0.2-1.0) Aspartate Amino Transferase (AST) 44 U/L (15-37) H Alanine Aminotransferase (ALT) 18 U/L (16-63) Alkaline Phosphatase 67 U/L (46-116) Troponin I Quantitative < 0.017 ng/mL (0.000-0.055) YF-Vde-G-Type Natriuretic Peptide 363 pg/mL (0-124) H Total Protein 7.6 g/dL (6.4-8.2) Albumin 4.0 g/dL (3.4-5.0) Albumin/Globulin Ratio 1.1 (1.0-1.7) FiO2 35 Laboratory Tests 02/22/18 20:08 Laboratory Tests 02/22/18 20:08 EKG EKG [] Interpretation Time: EKG demonstrates sinus bradycardia with rate of 51. Radiology/Procedures Radiology/Procedures [] Impressions: Chest x-ray demonstrates no acute process. Course & Med Decision Making Course & Med Decision Making Pertinent Labs and Imaging studies reviewed. (See chart for details) [] Dragon Disclaimer Dragon Disclaimer This electronic medical record was generated, in whole or in part, using a voice recognition dictation system. Departure Departure Impression: Primary Impression: Acute hypercapnic respiratory failure Additional Impressions: COPD with acute exacerbation Altered mental status Disposition: 09 ADMITTED INPATIENT Admitting Physician: Whitney Castañeda Condition: IMPROVED Referrals: NO PCP (PCP) Problem Qualifiers Additional Impressions: Altered mental status Altered mental status type: unspecified Qualified Codes: R41.82 - Altered mental status, unspecified EDWINA LINARES Jr. DO Feb 22, 2018 19:39
[2018-02-22 19:54] LABS: BASE EXCESS ABG 7 mmol/L (-3-3); HCO3 ABG 36 mmol/L (21-28); PO2 ABG 106 mmHg (65-108); SAT O2 ABG 97 % (92-99)
[2018-02-22 20:29] LABS: BASO % 1 % (0-3); EOS # 0.3 x10^3/uL (0.0-0.7); EOS % 5 % (0-3); HEMOGLOBIN 14.3 g/dL (13.0-17.5); LYMPH # 1.4 x10^3/uL (1.0-4.8); LYMPH % 20 % (24-48); MEAN CORPUSCULAR HEMOGLOBIN 31 pg (25-35); MEAN CORPUSCULAR HGB CONC 34 g/dL (31-37); MEAN CORPUSCULAR VOLUME 90 fL (79-100); MONO # 0.5 x10^3/uL (0.0-1.1); MONO % 7 % (0-9); NEUT # 4.8 x10^3uL (1.8-7.7); NEUT % 68 % (31-73); PLATELET COUNT 208 x10^3/uL (140-400); RED BLOOD COUNT 4.68 x10^6/uL (4.30-5.70); RED CELL DISTRIBUTION WIDTH 15.1 % (11.5-14.5); WHITE BLOOD COUNT 7.1 x10^3/uL (4.0-11.0)
[2018-02-22 20:38] LABS: CALCIUM 9.2 mg/dL (8.5-10.1); CREATININE 1.4 mg/dL (0.7-1.3); GFR 51.9
[2018-02-22 20:42] LABS: ALBUMIN/GLOBULIN RATIO 1.1 (1.0-1.7); TOTAL BILIRUBIN 0.4 mg/dL (0.2-1.0); TOTAL PROTEIN 7.6 g/dL (6.4-8.2)
[2018-02-22 22:17] LABS: BASE EXCESS ABG 5 mmol/L (-3-3); HCO3 ABG 34 mmol/L (21-28); PO2 ABG 94 mmHg (65-108); SAT O2 ABG 96 % (92-99)
[2018-02-22 22:19] LABS: PCO2 ABG 69 mmHg (35-46)
[2018-02-22 22:32] LABS: PCO2 ABG 74 mmHg (35-46)
[2018-02-22 22:33] LABS: FIO2 ABG 35
[2018-02-22] MEDS ORDERED: diphenhydrAMINE HCL 25 MG CAPSULE PO PRN (22:45)
[2018-02-22] MEDS ORDERED: ACETAMINOPHEN/CODEINE 300/30MG TABLET. PO PRN (22:45)
[2018-02-22] MEDS ORDERED: ONDANSETRON ODT 4 MG TAB.RAPDIS. PO PRN (22:45)
[2018-02-22] MEDS ORDERED: ACETAMINOPHEN 500 MG TABLET PO PRN (22:45)
[2018-02-22] MEDS ORDERED: ONDANSETRON PF 4 MG/2 ML VIAL. IV PRN (22:45)
[2018-02-22] MEDS ORDERED: ALBUTEROL SULFATE 2.5 MG/3 ML NEBU. NEB PRN (23:00)
[2018-02-22] MEDS ORDERED: hydrALAZINE 20 MG/ML VIAL. IVP ONE (23:00)
[2018-02-22] MEDS ORDERED: ZIPRASIDONE IM 20 MG VIAL. IM ONE (23:30)
--- NOTE | 2018-02-22 23:49 | RAD ---
Indication:Dyspnea TECHNIQUE:Portable AP chest X-ray COMPARISON:None FINDINGS: Heart is normal in size. Diffuse interstitial opacities are seen without focal consolidation. No pneumothorax or pleural effusion. Visualized bony thorax is within normal limits. IMPRESSION: Findings suggests mild interstitial pulmonary edema or atypical/viral infection. Electronically signed by: Margarito Livingston DO (02/22/2018 11:46 PM) [facility]
[2018-02-23] VITALS (14 sets, daily range): BP systolic 103–163; BP diastolic 58–88
[2018-02-23] MEDS ORDERED: NON FORMULARY ITEM (Albuterol Sulfate (Ventolin Hfa Inhaler) 2 PUFF) INH SCH
[2018-02-23] MEDS ORDERED: ZIPRASIDONE IM 20 MG VIAL. IM ONE
[2018-02-23 01:23] LABS: BASE EXCESS ABG 2 mmol/L (-3-3); HCO3 ABG 28 mmol/L (21-28); PCO2 ABG 50 mmHg (35-46); PO2 ABG 102 mmHg (65-108); SAT O2 ABG 97 % (92-99)
[2018-02-23 01:25] LABS: FIO2 ABG 35
[2018-02-23] MEDS: LEVOTHYROXINE 150 MCG TABLET PO SCH ×2 (06:00→11:00)
[2018-02-23] MEDS: PANTOPRAZOLE 40 MG TABLET.DR. PO SCH ×2 (07:30→10:59)
[2018-02-23] MEDS: CLOPIDOGREL BISULFATE 75 MG TABLET PO SCH ×2 (08:00→10:59)
[2018-02-23] MEDS: BUDESONIDE 0.5 MG/2 ML NEBU. NEB SCH ×2 (08:04→19:42)
[2018-02-23] MEDS: IPRATRPIUM/ALBUTEROL 0.5/2.5MG 3 ML NEBU. NEB SCH ×4 (08:04→19:42)
[2018-02-23] MEDS: FUROSEMIDE 20 MG TABLET PO SCH ×2 (09:00→11:00)
[2018-02-23] MEDS: ISOSORBIDE MONONITRATE ER 30 MG TAB.ER.24H PO SCH ×2 (09:00→10:59)
[2018-02-23] MEDS ORDERED: NON FORMULARY ITEM (Tiotropium Bromide (Spiriva) 2 INH) IH SCH (09:00)
--- NOTE | 2018-02-23 09:21 | EKG ---
[facility] [address] [place] [address] Test Date: 2018-02-22 Test Time: 19:50:02 Pat Name: MEGAN CENTENO Department: Room: 105 1 Gender: M Spd Manager: : [id number] Requested By: EDWINA LINARES Order Number: [id number] Reading MD: Kiet Gordillo MD Measurements Intervals [place] Rate: 51 P: 31 [place]: 186 QRS: -49 QRSD: 100 T: 131 QT: 450 QTc: 417 Interpretive Statements SINUS RHYTHM ATRIAL PREMATURE COMPLEX(ES) NON-SPECIFIC ST/T CHANGES Electronically Signed On 02-25-2018 11:30:57 CDT by Kiet Gordillo MD
[2018-02-23 10:23] LABS: BASO % 0 % (0-3); EOS % 0 % (0-3); HEMOGLOBIN 15.3 g/dL (13.0-17.5); LYMPH # 0.7 x10^3/uL (1.0-4.8); LYMPH % 11 % (24-48); MEAN CORPUSCULAR HEMOGLOBIN 31 pg (25-35); MEAN CORPUSCULAR HGB CONC 34 g/dL (31-37); MEAN CORPUSCULAR VOLUME 91 fL (79-100); MONO # 0.1 x10^3/uL (0.0-1.1); MONO % 2 % (0-9); NEUT # 5.6 x10^3uL (1.8-7.7); NEUT % 87 % (31-73); PLATELET COUNT 230 x10^3/uL (140-400); RED BLOOD COUNT 4.96 x10^6/uL (4.30-5.70); WHITE BLOOD COUNT 6.5 x10^3/uL (4.0-11.0)
[2018-02-23 10:38] LABS: CREATININE 1.3 mg/dL (0.7-1.3); GFR 56.5; POTASSIUM 4.7 mmol/L (3.5-5.1)
[2018-02-23 10:40] LABS: % BANDS 11 % (0-9); % LYMPHS 11 % (24-48); % MONOS 1 % (0-10); % SEGS 77 % (35-66)
[2018-02-23 10:43] LABS: PLT ESTIMATE ADEQUATE (ADEQUATE)
[2018-02-23] MEDS: oxyCODONE/APAP 5/325 1 TAB TABLET PO PRN ×3 (10:59→20:01)
--- NOTE | 2018-02-23 11:06 | PDOC ---
PULMONARY PROGRESS NOTES Vitals Vital Signs Date Time Temp Pulse Resp B/P (MAP) Pulse Ox O2 Delivery O2 Flow Rate FiO2 02/23/18 10:00 60 18 152/80 (104) 100 BiPAP/CPAP 02/23/18 07:00 97.0 97.0 General: Alert HEENT: Other Lungs: Clear Cardiovascular: S1, S2 Abdomen: Soft, Non-tender Extremities: No Edema Labs Laboratory Tests Test 02/22/18 19:22 02/22/18 20:08 02/22/18 20:52 02/22/18 23:39 O2 Saturation 97 % (92-99) 96 % (92-99) 97 % (92-99) Arterial Blood pH 7.33 (7.35-7.45) 7.28 (7.35-7.45) 7.37 (7.35-7.45) Arterial Blood pCO2 at Patient Temp 69 mmHg (35-46) 74 mmHg (35-46) 50 mmHg (35-46) Arterial Blood pO2 at Patient Temp 106 mmHg (65-108) 94 mmHg (65-108) 102 mmHg (65-108) Arterial Blood HCO3 36 mmol/L (21-28) 34 mmol/L (21-28) 28 mmol/L (21-28) Arterial Blood Base Excess 7 mmol/L (-3-3) 5 mmol/L (-3-3) 2 mmol/L (-3-3) White Blood Count 7.1 x10^3/uL (4.0-11.0) Red Blood Count 4.68 x10^6/uL (4.30-5.70) Hemoglobin 14.3 g/dL (13.0-17.5) Hematocrit 42.0 % (39.0-53.0) Mean Corpuscular Volume 90 fL (79-100) Mean Corpuscular Hemoglobin 31 pg (25-35) Mean Corpuscular Hemoglobin Concent 34 g/dL (31-37) Red Cell Distribution Width 15.1 % (11.5-14.5) Platelet Count 208 x10^3/uL (140-400) Neutrophils (%) (Auto) 68 % (31-73) Lymphocytes (%) (Auto) 20 % (24-48) Monocytes (%) (Auto) 7 % (0-9) Eosinophils (%) (Auto) 5 % (0-3) Basophils (%) (Auto) 1 % (0-3) Neutrophils # (Auto) 4.8 x10^3uL (1.8-7.7) Lymphocytes # (Auto) 1.4 x10^3/uL (1.0-4.8) Monocytes # (Auto) 0.5 x10^3/uL (0.0-1.1) Eosinophils # (Auto) 0.3 x10^3/uL (0.0-0.7) Basophils # (Auto) 0.0 x10^3/uL (0.0-0.2) Sodium Level 141 mmol/L (136-145) Potassium Level 4.0 mmol/L (3.5-5.1) Chloride Level 100 mmol/L (98-107) Carbon Dioxide Level 37 mmol/L (21-32) Anion Gap 4 (6-14) Blood Urea Nitrogen 18 mg/dL (8-26) Creatinine 1.4 mg/dL (0.7-1.3) Estimated GFR (Cockcroft-Gault) 51.9 BUN/Creatinine Ratio 13 (6-20) Glucose Level 100 mg/dL (70-99) Calcium Level 9.2 mg/dL (8.5-10.1) Total Bilirubin 0.4 mg/dL (0.2-1.0) Aspartate Amino Transf (AST/SGOT) 44 U/L (15-37) Alanine Aminotransferase (ALT/SGPT) 18 U/L (16-63) Alkaline Phosphatase 67 U/L (46-116) Troponin I Quantitative < 0.017 ng/mL (0.000-0.055) AW-Nrc-A-Type Natriuretic Peptide 363 pg/mL (0-124) Total Protein 7.6 g/dL (6.4-8.2) Albumin 4.0 g/dL (3.4-5.0) Albumin/Globulin Ratio 1.1 (1.0-1.7) FiO2 35 35 Test 02/23/18 10:10 White Blood Count 6.5 x10^3/uL (4.0-11.0) Red Blood Count 4.96 x10^6/uL (4.30-5.70) Hemoglobin 15.3 g/dL (13.0-17.5) Hematocrit 45.0 % (39.0-53.0) Mean Corpuscular Volume 91 fL (79-100) Mean Corpuscular Hemoglobin 31 pg (25-35) Mean Corpuscular Hemoglobin Concent 34 g/dL (31-37) Red Cell Distribution Width 15.0 % (11.5-14.5) Platelet Count 230 x10^3/uL (140-400) Neutrophils (%) (Auto) 87 % (31-73) Lymphocytes (%) (Auto) 11 % (24-48) Monocytes (%) (Auto) 2 % (0-9) Eosinophils (%) (Auto) 0 % (0-3) Basophils (%) (Auto) 0 % (0-3) Neutrophils # (Auto) 5.6 x10^3uL (1.8-7.7) Lymphocytes # (Auto) 0.7 x10^3/uL (1.0-4.8) Monocytes # (Auto) 0.1 x10^3/uL (0.0-1.1) Eosinophils # (Auto) 0.0 x10^3/uL (0.0-0.7) Basophils # (Auto) 0.0 x10^3/uL (0.0-0.2) Segmented Neutrophils % 77 % (35-66) Band Neutrophils % 11 % (0-9) Lymphocytes % 11 % (24-48) Monocytes % 1 % (0-10) Platelet Estimate Adequate (ADEQUATE) Sodium Level 140 mmol/L (136-145) Potassium Level 4.7 mmol/L (3.5-5.1) Chloride Level 101 mmol/L (98-107) Carbon Dioxide Level 31 mmol/L (21-32) Anion Gap 8 (6-14) Blood Urea Nitrogen 17 mg/dL (8-26) Creatinine 1.3 mg/dL (0.7-1.3) Estimated GFR (Cockcroft-Gault) 56.5 Glucose Level 131 mg/dL (70-99) Calcium Level 9.0 mg/dL (8.5-10.1) Laboratory Tests Test 02/22/18 19:22 02/22/18 20:08 02/22/18 20:52 02/22/18 23:39 O2 Saturation 97 % (92-99) 96 % (92-99) 97 % (92-99) Arterial Blood pH 7.33 (7.35-7.45) 7.28 (7.35-7.45) 7.37 (7.35-7.45) Arterial Blood pCO2 at Patient Temp 69 mmHg (35-46) 74 mmHg (35-46) 50 mmHg (35-46) Arterial Blood pO2 at Patient Temp 106 mmHg (65-108) 94 mmHg (65-108) 102 mmHg (65-108) Arterial Blood HCO3 36 mmol/L (21-28) 34 mmol/L (21-28) 28 mmol/L (21-28) Arterial Blood Base Excess 7 mmol/L (-3-3) 5 mmol/L (-3-3) 2 mmol/L (-3-3) White Blood Count 7.1 x10^3/uL (4.0-11.0) Red Blood Count 4.68 x10^6/uL (4.30-5.70) Hemoglobin 14.3 g/dL (13.0-17.5) Hematocrit 42.0 % (39.0-53.0) Mean Corpuscular Volume 90 fL (79-100) Mean Corpuscular Hemoglobin 31 pg (25-35) Mean Corpuscular Hemoglobin Concent 34 g/dL (31-37) Red Cell Distribution Width 15.1 % (11.5-14.5) Platelet Count 208 x10^3/uL (140-400) Neutrophils (%) (Auto) 68 % (31-73) Lymphocytes (%) (Auto) 20 % (24-48) Monocytes (%) (Auto) 7 % (0-9) Eosinophils (%) (Auto) 5 % (0-3) Basophils (%) (Auto) 1 % (0-3) Neutrophils # (Auto) 4.8 x10^3uL (1.8-7.7) Lymphocytes # (Auto) 1.4 x10^3/uL (1.0-4.8) Monocytes # (Auto) 0.5 x10^3/uL (0.0-1.1) Eosinophils # (Auto) 0.3 x10^3/uL (0.0-0.7) Basophils # (Auto) 0.0 x10^3/uL (0.0-0.2) Sodium Level 141 mmol/L (136-145) Potassium Level 4.0 mmol/L (3.5-5.1) Chloride Level 100 mmol/L (98-107) Carbon Dioxide Level 37 mmol/L (21-32) Anion Gap 4 (6-14) Blood Urea Nitrogen 18 mg/dL (8-26) Creatinine 1.4 mg/dL (0.7-1.3) Estimated GFR (Cockcroft-Gault) 51.9 BUN/Creatinine Ratio 13 (6-20) Glucose Level 100 mg/dL (70-99) Calcium Level 9.2 mg/dL (8.5-10.1) Total Bilirubin 0.4 mg/dL (0.2-1.0) Aspartate Amino Transf (AST/SGOT) 44 U/L (15-37) Alanine Aminotransferase (ALT/SGPT) 18 U/L (16-63) Alkaline Phosphatase 67 U/L (46-116) Troponin I Quantitative < 0.017 ng/mL (0.000-0.055) RL-Vre-H-Type Natriuretic Peptide 363 pg/mL (0-124) Total Protein 7.6 g/dL (6.4-8.2) Albumin 4.0 g/dL (3.4-5.0) Albumin/Globulin Ratio 1.1 (1.0-1.7) FiO2 35 35 Test 02/23/18 10:10 White Blood Count 6.5 x10^3/uL (4.0-11.0) Red Blood Count 4.96 x10^6/uL (4.30-5.70) Hemoglobin 15.3 g/dL (13.0-17.5) Hematocrit 45.0 % (39.0-53.0) Mean Corpuscular Volume 91 fL (79-100) Mean Corpuscular Hemoglobin 31 pg (25-35) Mean Corpuscular Hemoglobin Concent 34 g/dL (31-37) Red Cell Distribution Width 15.0 % (11.5-14.5) Platelet Count 230 x10^3/uL (140-400) Neutrophils (%) (Auto) 87 % (31-73) Lymphocytes (%) (Auto) 11 % (24-48) Monocytes (%) (Auto) 2 % (0-9) Eosinophils (%) (Auto) 0 % (0-3) Basophils (%) (Auto) 0 % (0-3) Neutrophils # (Auto) 5.6 x10^3uL (1.8-7.7) Lymphocytes # (Auto) 0.7 x10^3/uL (1.0-4.8) Monocytes # (Auto) 0.1 x10^3/uL (0.0-1.1) Eosinophils # (Auto) 0.0 x10^3/uL (0.0-0.7) Basophils # (Auto) 0.0 x10^3/uL (0.0-0.2) Segmented Neutrophils % 77 % (35-66) Band Neutrophils % 11 % (0-9) Lymphocytes % 11 % (24-48) Monocytes % 1 % (0-10) Platelet Estimate Adequate (ADEQUATE) Sodium Level 140 mmol/L (136-145) Potassium Level 4.7 mmol/L (3.5-5.1) Chloride Level 101 mmol/L (98-107) Carbon Dioxide Level 31 mmol/L (21-32) Anion Gap 8 (6-14) Blood Urea Nitrogen 17 mg/dL (8-26) Creatinine 1.3 mg/dL (0.7-1.3) Estimated GFR (Cockcroft-Gault) 56.5 Glucose Level 131 mg/dL (70-99) Calcium Level 9.0 mg/dL (8.5-10.1) Medications Active Scripts Medications Dose Route/Sig Max Daily Dose Days Date Category Synthroid (Levothyroxine Sodium) 150 Mcg Tablet 150 Mcg PO DAILY06 30 02/14/18 Rx Oxycodone-Acetaminophen 5-325 (Oxycodone Hcl/Acetaminophen) 1 Each Tablet 1 Tab PO PRN Q4HRS PRN 02/14/18 Rx Omeprazole 20 Mg Tablet.dr 1 Tab PO DAILY 02/14/18 Rx Furosemide 20 Mg Tablet 1 Tab PO DAILY 02/14/18 Rx Isosorbide Mononitrate Er (Isosorbide Mononitrate) 30 Mg Tab.er.24h 1 Tab PO DAILY 02/14/18 Rx Simvastatin 20 Mg Tablet 1 Tab PO QHS 02/14/18 Rx Plavix (Clopidogrel Bisulfate) 75 Mg Tablet 75 Mg PO DAILYWBKFT 02/14/18 Rx Symbicort 160-4.5 Mcg Inhaler (Budesonide/Formoterol Fumarate) 10.2 Gm Hfa.aer.ad 03/02/17 Reported Ventolin Hfa Inhaler (Albuterol Sulfate) 18 Gm Hfa.aer.ad 2 Puff INH Q4HRS 02/27/17 Reported Spiriva (Tiotropium Lutz) 18 Mcg Cap.w.dev 2 Inh IH DAILY 02/27/17 Reported Impression . NOTE DICTATED THANKS ACUTE LUNG INJURY TRANSFER OUT OF ICU ROSANA QUINONEZ MD Feb 23, 2018 11:06
[2018-02-23] MEDS: DOXYCYCLINE HYCLATE 100 MG TABLET PO SCH ×2 (11:48→20:01)
[2018-02-23] MEDS: predniSONE 20 MG TABLET PO SCH (11:48)
[2018-02-23 12:18] LABS: BASE EXCESS ABG 1 mmol/L (-3-3); HCO3 ABG 27 mmol/L (21-28); PCO2 ABG 47 mmHg (35-46); PO2 ABG 59 mmHg (65-108); SAT O2 ABG 90 % (92-99)
[2018-02-23 12:20] LABS: FIO2 ABG 21
--- NOTE | 2018-02-23 14:58 | HP ---
ADMIT DATE: 02/23/2018 CHIEF COMPLAINT: Shortness of breath. HISTORY OF PRESENT ILLNESS: The patient is a pleasant elderly male who has known COPD. He presents with shortness of breath, rated at 10/10. He has been worsening over the past few days. Apparently, he has been cleaning his new apartment with bleach; there was mold in the apartment. It appears he has an acute lung injury. He is hypoxic, satting in the 90s. Symptoms are worse with moving, described as agonizing. I have discussed the case with ER physician. We are going to admit the patient to the ICU and consult Dr. Purcell. He was placed on BiPAP. PAST MEDICAL HISTORY: COPD, gallstones, hypothyroidism, cardiac catheterization with stents, marijuana use. ALLERGIES: IBUPROFEN. FAMILY HISTORY: Hypertension. SOCIAL HISTORY: He smokes very little now, but he used to smoke heavily, does not drink, smokes marijuana. No other drugs. MEDICATIONS: Reviewed, please refer to the MRAD. He is on 10 home medications including Spiriva, Ventolin, Plavix, simvastatin, isosorbide, oxycodone, Lasix, Symbicort, omeprazole, and Synthroid. REVIEW OF SYSTEMS: GENERAL: No history of weight change, weakness or fevers. SKIN: No bruising, hair changes or rashes. EYES: No blurred, double or loss of vision. NOSE AND THROAT: No history of nosebleeds, hoarseness or sore throat. HEART: No history of palpitations, chest pain or shortness of breath on exertion. LUNGS: He complains of shortness of breath and cough. GASTROINTESTINAL: Denies changes in appetite, nausea, vomiting, diarrhea or constipation. GENITOURINARY: No history of frequency, urgency, hesitancy or nocturia. NEUROLOGIC: Denies history of numbness, tingling, tremor or weakness. PSYCHIATRIC: No history of panic, anxiety or depression. ENDOCRINE: No history of heat or cold intolerance, polyuria or polydipsia. EXTREMITIES: Denies muscle weakness, joint pain, pain on walking or stiffness. PHYSICAL EXAMINATION: VITAL SIGNS: Temperature 98, pulse 60, respirations 18, blood pressure 147/80, O2 sat 100% on BiPAP. GENERAL: He is awake, alert. HEART: Distant S1, S2 with a soft S3. LUNGS: Diffuse wheezing. ABDOMEN: Soft. Decreased bowel sounds, little or no organomegaly. EXTREMITIES: 1+ edema. SKIN: He has got multiple tattoos. No rashes. ENDOCRINE: No thyromegaly. LYMPHATICS: No cervical nodes. HEMATOPOIETIC: No bruising. LABORATORY DATA: Hematology is normal. Electrolytes are normal. ASSESSMENT AND PLAN: Respiratory failure secondary to acute lung injury, probably from bleach exposure in a middle-aged male who also has chronic obstructive pulmonary disease. The patient is being admitted on BiPAP, we are trying to titrate off the BiPAP. Consult Pulmonary. IV steroids, DuoNebs, home meds, frequent labs, ICU monitoring. PROGNOSIS: Guarded. MICHAEL ANTOINE DO DR: TASHA/latisha JOB#: [id number] / [id number]
[2018-02-23] MEDS: CYCLOBENZAPRINE 10 MG TABLET. PO PRN (15:51)
[2018-02-23] MEDS: guaiFENesin DM 200MG/20MG 10 ML SYRUP PO PRN (15:51)
[2018-02-23] MEDS: LACTOBACILLUS RHAMNOSUS GG 1 CAPSULE. PO SCH (20:01)
[2018-02-23] MEDS: BENZONATATE 100 MG CAPSULE. PO SCH (20:01)
[2018-02-23] MEDS ORDERED: SIMVASTATIN 20 MG TABLET PO SCH (21:00)
--- NOTE | 2018-02-24 00:45 | CONS ---
DATE OF CONSULTATION: 02/23/2018 ATTENDING PHYSICIAN: Whitney Castañeda M.D. REASON FOR CONSULTATION: The patient seen in Pulmonary consultation at the request of Dr. Castañeda for acute respiratory failure. HISTORY OF PRESENT ILLNESS: The patient is a 57-year old who presented with increasing shortness of breath. Apparently, he was exposed to some mold at the house. There are also a [place] of bunch of bleach. He inhaled the fumes and became short of breath, wheezing, coughing yellow sputum. Arterial blood gas in the Emergency Room yesterday revealed a pH of 7.33, PaCO2 of 69 and pO2 of 106. His repeat arterial blood gas after BiPAP: pH of 7.37, PaCO2 of 50 and pO2 102. The patient denies fever, chills, nausea, vomiting or diarrhea. PAST MEDICAL HISTORY: COPD, coronary artery disease, tobacco dependence, hypertension, previous myocardial infarction, hypothyroid and recent cholecystectomy. PAST SURGICAL HISTORY: As above. ALLERGIES: IBUPROFEN. CURRENT MEDICATIONS: List was reviewed. REVIEW OF SYSTEMS: CONSTITUTIONAL: No fever or chills. EYES: No change in visual acuity. HEAD, EARS, NOSE AND THROAT: No nasal congestion or sore throat. PULMONARY: As indicated above. CARDIOVASCULAR: No chest pain. No pressure. GASTROINTESTINAL: No nausea, vomiting or diarrhea. GENITOURINARY: No dysuria or frequency. MUSCULOSKELETAL: No localized muscle aches and joint pain. SKIN: No new skin rashes. NEUROLOGICAL: No headaches, diplopia or blurred vision. SOCIAL HISTORY: Socially, he continues to smoke. PHYSICAL EXAMINATION: VITAL SIGNS: Stable. O2 saturation was greater than 92%. HEENT: Eyes, the sclerae were icteric. NECK: Jugular venous distention was not elevated. No lymphadenopathy. CHEST: Full expansion. LUNGS: Adequate airway flow with no wheezes. CARDIOVASCULAR: Regular rate and rhythm with S1 and S2. No S3. ABDOMEN: Soft, nontender and nondistended. EXTREMITIES: No clubbing, cyanosis or edema. NEUROLOGICAL: The patient was awake, alert and following commands. A detailed neuro exam was not performed. LABORATORY DATA: Labs were reviewed. Electrolytes were noted. White count was normal. Hemoglobin and hematocrit were noted. IMPRESSION: 1. Tsomx-hx-eyuuckd hypoxemic hypercapnic respiratory failure. 2. Acute hypersensitivity pneumonitis. 3. Bilateral pulmonary infiltrates compatible with no acute lung injury. 4. Tobacco dependence. PLAN: 1. The patient is doing better. Okay to discharge BiPAP. 2. Steroids. 3. Antibiotics. 4. Continue home medication. 5. Transfer out of the ICU. I do appreciate the privilege in sharing in the patient's care. ROSANA QUINONEZ MD DR: EMANUEL/latisha JOB#: [id number] / [id number]
[2018-02-24 03:00] VITALS: BP 131/76
[2018-02-24 03:51] LABS: BASO % 0 % (0-3); EOS % 0 % (0-3); HEMATOCRIT 39.2 % (39.0-53.0); HEMOGLOBIN 13.3 g/dL (13.0-17.5); LYMPH # 1.4 x10^3/uL (1.0-4.8); LYMPH % 14 % (24-48); MEAN CORPUSCULAR HEMOGLOBIN 31 pg (25-35); MEAN CORPUSCULAR HGB CONC 34 g/dL (31-37); MEAN CORPUSCULAR VOLUME 91 fL (79-100); MONO # 0.5 x10^3/uL (0.0-1.1); MONO % 5 % (0-9); NEUT % 81 % (31-73); PLATELET COUNT 222 x10^3/uL (140-400); RED BLOOD COUNT 4.31 x10^6/uL (4.30-5.70); RED CELL DISTRIBUTION WIDTH 14.9 % (11.5-14.5); WHITE BLOOD COUNT 9.9 x10^3/uL (4.0-11.0)
[2018-02-24 04:09] LABS: CALCIUM 8.7 mg/dL (8.5-10.1); CREATININE 1.8 mg/dL (0.7-1.3); GFR 38.8; POTASSIUM 5.1 mmol/L (3.5-5.1)
[2018-02-24] MEDS: oxyCODONE/APAP 5/325 1 TAB TABLET PO PRN ×3 (04:25→13:58)
[2018-02-24] MEDS: PANTOPRAZOLE 40 MG TABLET.DR. PO SCH (05:46)
[2018-02-24] MEDS: guaiFENesin DM 200MG/20MG 10 ML SYRUP PO PRN ×2 (05:46→10:44)
[2018-02-24] MEDS: CYCLOBENZAPRINE 10 MG TABLET. PO PRN ×2 (05:46→10:44)
[2018-02-24] MEDS: LEVOTHYROXINE 150 MCG TABLET PO SCH (05:47)
[2018-02-24 07:00] VITALS: BP 142/83
[2018-02-24] MEDS: FUROSEMIDE 20 MG TABLET PO SCH (08:13)
[2018-02-24] MEDS: DOXYCYCLINE HYCLATE 100 MG TABLET PO SCH (08:13)
[2018-02-24] MEDS: LACTOBACILLUS RHAMNOSUS GG 1 CAPSULE. PO SCH (08:13)
[2018-02-24] MEDS: predniSONE 20 MG TABLET PO SCH (08:15)
[2018-02-24] MEDS: CLOPIDOGREL BISULFATE 75 MG TABLET PO SCH (08:15)
[2018-02-24] MEDS: ISOSORBIDE MONONITRATE ER 30 MG TAB.ER.24H PO SCH (08:15)
[2018-02-24] MEDS: BENZONATATE 100 MG CAPSULE. PO SCH ×2 (08:15→13:58)
[2018-02-24] MEDS: BUDESONIDE 0.5 MG/2 ML NEBU. NEB SCH (08:34)
[2018-02-24] MEDS: IPRATRPIUM/ALBUTEROL 0.5/2.5MG 3 ML NEBU. NEB SCH ×3 (08:34→16:35)
[2018-02-24 11:00] VITALS: BP 141/76
--- NOTE | 2018-02-24 11:07 | PDOC ---
PULMONARY PROGRESS NOTES Subjective PT BETTER LESS SOA Vitals Vital Signs Date Time Temp Pulse Resp B/P (MAP) Pulse Ox O2 Delivery O2 Flow Rate FiO2 02/24/18 10:45 Nasal Cannula 2.0 02/24/18 08:34 94 02/24/18 08:15 63 142/83 02/24/18 07:00 98.0 20 98.0 General: Alert HEENT: Other Lungs: Clear Cardiovascular: S1, S2 Abdomen: Soft, Non-tender Extremities: No Edema Labs Laboratory Tests Test 02/22/18 19:22 02/22/18 20:08 02/22/18 20:52 02/22/18 23:39 O2 Saturation 97 % (92-99) 96 % (92-99) 97 % (92-99) Arterial Blood pH 7.33 (7.35-7.45) 7.28 (7.35-7.45) 7.37 (7.35-7.45) Arterial Blood pCO2 at Patient Temp 69 mmHg (35-46) 74 mmHg (35-46) 50 mmHg (35-46) Arterial Blood pO2 at Patient Temp 106 mmHg (65-108) 94 mmHg (65-108) 102 mmHg (65-108) Arterial Blood HCO3 36 mmol/L (21-28) 34 mmol/L (21-28) 28 mmol/L (21-28) Arterial Blood Base Excess 7 mmol/L (-3-3) 5 mmol/L (-3-3) 2 mmol/L (-3-3) White Blood Count 7.1 x10^3/uL (4.0-11.0) Red Blood Count 4.68 x10^6/uL (4.30-5.70) Hemoglobin 14.3 g/dL (13.0-17.5) Hematocrit 42.0 % (39.0-53.0) Mean Corpuscular Volume 90 fL (79-100) Mean Corpuscular Hemoglobin 31 pg (25-35) Mean Corpuscular Hemoglobin Concent 34 g/dL (31-37) Red Cell Distribution Width 15.1 % (11.5-14.5) Platelet Count 208 x10^3/uL (140-400) Neutrophils (%) (Auto) 68 % (31-73) Lymphocytes (%) (Auto) 20 % (24-48) Monocytes (%) (Auto) 7 % (0-9) Eosinophils (%) (Auto) 5 % (0-3) Basophils (%) (Auto) 1 % (0-3) Neutrophils # (Auto) 4.8 x10^3uL (1.8-7.7) Lymphocytes # (Auto) 1.4 x10^3/uL (1.0-4.8) Monocytes # (Auto) 0.5 x10^3/uL (0.0-1.1) Eosinophils # (Auto) 0.3 x10^3/uL (0.0-0.7) Basophils # (Auto) 0.0 x10^3/uL (0.0-0.2) Sodium Level 141 mmol/L (136-145) Potassium Level 4.0 mmol/L (3.5-5.1) Chloride Level 100 mmol/L (98-107) Carbon Dioxide Level 37 mmol/L (21-32) Anion Gap 4 (6-14) Blood Urea Nitrogen 18 mg/dL (8-26) Creatinine 1.4 mg/dL (0.7-1.3) Estimated GFR (Cockcroft-Gault) 51.9 BUN/Creatinine Ratio 13 (6-20) Glucose Level 100 mg/dL (70-99) Calcium Level 9.2 mg/dL (8.5-10.1) Total Bilirubin 0.4 mg/dL (0.2-1.0) Aspartate Amino Transf (AST/SGOT) 44 U/L (15-37) Alanine Aminotransferase (ALT/SGPT) 18 U/L (16-63) Alkaline Phosphatase 67 U/L (46-116) Troponin I Quantitative < 0.017 ng/mL (0.000-0.055) AE-Pkw-Q-Type Natriuretic Peptide 363 pg/mL (0-124) Total Protein 7.6 g/dL (6.4-8.2) Albumin 4.0 g/dL (3.4-5.0) Albumin/Globulin Ratio 1.1 (1.0-1.7) FiO2 35 35 Test 02/23/18 03:11 02/23/18 10:10 02/23/18 12:05 02/24/18 03:25 Nasal Screen MRSA (PCR) Negative (Negative) White Blood Count 6.5 x10^3/uL (4.0-11.0) 9.9 x10^3/uL (4.0-11.0) Red Blood Count 4.96 x10^6/uL (4.30-5.70) 4.31 x10^6/uL (4.30-5.70) Hemoglobin 15.3 g/dL (13.0-17.5) 13.3 g/dL (13.0-17.5) Hematocrit 45.0 % (39.0-53.0) 39.2 % (39.0-53.0) Mean Corpuscular Volume 91 fL (79-100) 91 fL (79-100) Mean Corpuscular Hemoglobin 31 pg (25-35) 31 pg (25-35) Mean Corpuscular Hemoglobin Concent 34 g/dL (31-37) 34 g/dL (31-37) Red Cell Distribution Width 15.0 % (11.5-14.5) 14.9 % (11.5-14.5) Platelet Count 230 x10^3/uL (140-400) 222 x10^3/uL (140-400) Neutrophils (%) (Auto) 87 % (31-73) 81 % (31-73) Lymphocytes (%) (Auto) 11 % (24-48) 14 % (24-48) Monocytes (%) (Auto) 2 % (0-9) 5 % (0-9) Eosinophils (%) (Auto) 0 % (0-3) 0 % (0-3) Basophils (%) (Auto) 0 % (0-3) 0 % (0-3) Neutrophils # (Auto) 5.6 x10^3uL (1.8-7.7) 8.0 x10^3uL (1.8-7.7) Lymphocytes # (Auto) 0.7 x10^3/uL (1.0-4.8) 1.4 x10^3/uL (1.0-4.8) Monocytes # (Auto) 0.1 x10^3/uL (0.0-1.1) 0.5 x10^3/uL (0.0-1.1) Eosinophils # (Auto) 0.0 x10^3/uL (0.0-0.7) 0.0 x10^3/uL (0.0-0.7) Basophils # (Auto) 0.0 x10^3/uL (0.0-0.2) 0.0 x10^3/uL (0.0-0.2) Segmented Neutrophils % 77 % (35-66) Band Neutrophils % 11 % (0-9) Lymphocytes % 11 % (24-48) Monocytes % 1 % (0-10) Platelet Estimate Adequate (ADEQUATE) Sodium Level 140 mmol/L (136-145) 139 mmol/L (136-145) Potassium Level 4.7 mmol/L (3.5-5.1) 5.1 mmol/L (3.5-5.1) Chloride Level 101 mmol/L (98-107) 101 mmol/L (98-107) Carbon Dioxide Level 31 mmol/L (21-32) 35 mmol/L (21-32) Anion Gap 8 (6-14) 3 (6-14) Blood Urea Nitrogen 17 mg/dL (8-26) 26 mg/dL (8-26) Creatinine 1.3 mg/dL (0.7-1.3) 1.8 mg/dL (0.7-1.3) Estimated GFR (Cockcroft-Gault) 56.5 38.8 Glucose Level 131 mg/dL (70-99) 119 mg/dL (70-99) Calcium Level 9.0 mg/dL (8.5-10.1) 8.7 mg/dL (8.5-10.1) O2 Saturation 90 % (92-99) Arterial Blood pH 7.38 (7.35-7.45) Arterial Blood pCO2 at Patient Temp 47 mmHg (35-46) Arterial Blood pO2 at Patient Temp 59 mmHg (65-108) Arterial Blood HCO3 27 mmol/L (21-28) Arterial Blood Base Excess 1 mmol/L (-3-3) FiO2 21 Laboratory Tests Test 02/23/18 12:05 02/24/18 03:25 O2 Saturation 90 % (92-99) Arterial Blood pH 7.38 (7.35-7.45) Arterial Blood pCO2 at Patient Temp 47 mmHg (35-46) Arterial Blood pO2 at Patient Temp 59 mmHg (65-108) Arterial Blood HCO3 27 mmol/L (21-28) Arterial Blood Base Excess 1 mmol/L (-3-3) FiO2 21 White Blood Count 9.9 x10^3/uL (4.0-11.0) Red Blood Count 4.31 x10^6/uL (4.30-5.70) Hemoglobin 13.3 g/dL (13.0-17.5) Hematocrit 39.2 % (39.0-53.0) Mean Corpuscular Volume 91 fL (79-100) Mean Corpuscular Hemoglobin 31 pg (25-35) Mean Corpuscular Hemoglobin Concent 34 g/dL (31-37) Red Cell Distribution Width 14.9 % (11.5-14.5) Platelet Count 222 x10^3/uL (140-400) Neutrophils (%) (Auto) 81 % (31-73) Lymphocytes (%) (Auto) 14 % (24-48) Monocytes (%) (Auto) 5 % (0-9) Eosinophils (%) (Auto) 0 % (0-3) Basophils (%) (Auto) 0 % (0-3) Neutrophils # (Auto) 8.0 x10^3uL (1.8-7.7) Lymphocytes # (Auto) 1.4 x10^3/uL (1.0-4.8) Monocytes # (Auto) 0.5 x10^3/uL (0.0-1.1) Eosinophils # (Auto) 0.0 x10^3/uL (0.0-0.7) Basophils # (Auto) 0.0 x10^3/uL (0.0-0.2) Sodium Level 139 mmol/L (136-145) Potassium Level 5.1 mmol/L (3.5-5.1) Chloride Level 101 mmol/L (98-107) Carbon Dioxide Level 35 mmol/L (21-32) Anion Gap 3 (6-14) Blood Urea Nitrogen 26 mg/dL (8-26) Creatinine 1.8 mg/dL (0.7-1.3) Estimated GFR (Cockcroft-Gault) 38.8 Glucose Level 119 mg/dL (70-99) Calcium Level 8.7 mg/dL (8.5-10.1) Medications Active Scripts Medications Dose Route/Sig Max Daily Dose Days Date Category Synthroid (Levothyroxine Sodium) 150 Mcg Tablet 150 Mcg PO DAILY06 02/14/18 Rx Oxycodone-Acetaminophen 5-325 (Oxycodone Hcl/Acetaminophen) 1 Each Tablet 1 Tab PO PRN Q4HRS PRN 02/14/18 Rx Omeprazole 20 Mg Tablet.dr 1 Tab PO DAILY 02/14/18 Rx Furosemide 20 Mg Tablet 1 Tab PO DAILY 02/14/18 Rx Isosorbide Mononitrate Er (Isosorbide Mononitrate) 30 Mg Tab.er.24h 1 Tab PO DAILY 02/14/18 Rx Simvastatin 20 Mg Tablet 1 Tab PO QHS 02/14/18 Rx Plavix (Clopidogrel Bisulfate) 75 Mg Tablet 75 Mg PO DAILYWBKFT 02/14/18 Rx Symbicort 160-4.5 Mcg Inhaler (Budesonide/Formoterol Fumarate) 10.2 Gm Hfa.aer.ad 03/02/17 Reported Ventolin Hfa Inhaler (Albuterol Sulfate) 18 Gm Hfa.aer.ad 2 Puff INH Q4HRS 02/27/17 Reported Spiriva (Tiotropium [place]) 18 Mcg Cap.w.dev 2 Inh IH DAILY 02/27/17 Reported Impression . IMPRESSION: 1. Hfrje-nn-tqwvokl hypoxemic hypercapnic respiratory failure. 2. Acute hypersensitivity pneumonitis. 3. Bilateral pulmonary infiltrates compatible with no acute lung injury. 4. Tobacco dependence. Plan . OK TO D/C RX FOR PRED LEFT WITH ROSANA GAMBINO MD Feb 24, 2018 11:07
[2018-02-24] MEDS ORDERED: TIOT18CA IH (11:18)
[2018-02-24] MEDS ORDERED: VENTOLIN HFA18 GM INH (11:18)
[2018-02-24] MEDS ORDERED: IPRA3AMP29 NEB (11:18)
[2018-02-24] MEDS ORDERED: DOXY100T PO (11:18)
[2018-02-24] MEDS ORDERED: BENZ-8 PO (11:18)
--- NOTE | 2018-02-24 11:21 | PDOC3 ---
Discharge Summary Visit Information Date of Admission: Feb 23, 2018 Date of Discharge: Feb 24, 2018 Admitting Diagnosis Comment: 1. Pxqgx-cq-mqboscl hypoxemic hypercapnic respiratory failure. 2. Acute hypersensitivity pneumonitis. 3. Bilateral pulmonary infiltrates compatible with no acute lung injury. 4. Tobacco dependence. Final Diagnosis Problems Medical Problems: (1) Acute hypercapnic respiratory failure Status: Acute (2) Altered mental status Status: Acute (3) COPD with acute exacerbation Status: Acute Brief Hospital Course Allergies Allergies Coded Allergies Type Severity Reaction Last Updated Verified ibuprofen Allergy Severe Swelling 05/03/17 Yes Vital Signs Vital Signs Date Time Temp Pulse Resp B/P (MAP) Pulse Ox O2 Delivery O2 Flow Rate FiO2 02/24/18 10:45 Nasal Cannula 2.0 02/24/18 08:34 94 02/24/18 08:15 63 142/83 02/24/18 07:00 98.0 20 98.0 Lab Results Laboratory Tests Test 02/22/18 19:22 02/22/18 20:08 02/22/18 20:52 02/22/18 23:39 O2 Saturation 97 % (92-99) 96 % (92-99) 97 % (92-99) Arterial Blood pH 7.33 (7.35-7.45) 7.28 (7.35-7.45) 7.37 (7.35-7.45) Arterial Blood pCO2 at Patient Temp 69 mmHg (35-46) 74 mmHg (35-46) 50 mmHg (35-46) Arterial Blood pO2 at Patient Temp 106 mmHg (65-108) 94 mmHg (65-108) 102 mmHg (65-108) Arterial Blood HCO3 36 mmol/L (21-28) 34 mmol/L (21-28) 28 mmol/L (21-28) Arterial Blood Base Excess 7 mmol/L (-3-3) 5 mmol/L (-3-3) 2 mmol/L (-3-3) White Blood Count 7.1 x10^3/uL (4.0-11.0) Red Blood Count 4.68 x10^6/uL (4.30-5.70) Hemoglobin 14.3 g/dL (13.0-17.5) Hematocrit 42.0 % (39.0-53.0) Mean Corpuscular Volume 90 fL (79-100) Mean Corpuscular Hemoglobin 31 pg (25-35) Mean Corpuscular Hemoglobin Concent 34 g/dL (31-37) Red Cell Distribution Width 15.1 % (11.5-14.5) Platelet Count 208 x10^3/uL (140-400) Neutrophils (%) (Auto) 68 % (31-73) Lymphocytes (%) (Auto) 20 % (24-48) Monocytes (%) (Auto) 7 % (0-9) Eosinophils (%) (Auto) 5 % (0-3) Basophils (%) (Auto) 1 % (0-3) Neutrophils # (Auto) 4.8 x10^3uL (1.8-7.7) Lymphocytes # (Auto) 1.4 x10^3/uL (1.0-4.8) Monocytes # (Auto) 0.5 x10^3/uL (0.0-1.1) Eosinophils # (Auto) 0.3 x10^3/uL (0.0-0.7) Basophils # (Auto) 0.0 x10^3/uL (0.0-0.2) Sodium Level 141 mmol/L (136-145) Potassium Level 4.0 mmol/L (3.5-5.1) Chloride Level 100 mmol/L (98-107) Carbon Dioxide Level 37 mmol/L (21-32) Anion Gap 4 (6-14) Blood Urea Nitrogen 18 mg/dL (8-26) Creatinine 1.4 mg/dL (0.7-1.3) Estimated GFR (Cockcroft-Gault) 51.9 BUN/Creatinine Ratio 13 (6-20) Glucose Level 100 mg/dL (70-99) Calcium Level 9.2 mg/dL (8.5-10.1) Total Bilirubin 0.4 mg/dL (0.2-1.0) Aspartate Amino Transf (AST/SGOT) 44 U/L (15-37) Alanine Aminotransferase (ALT/SGPT) 18 U/L (16-63) Alkaline Phosphatase 67 U/L (46-116) Troponin I Quantitative < 0.017 ng/mL (0.000-0.055) IT-Col-F-Type Natriuretic Peptide 363 pg/mL (0-124) Total Protein 7.6 g/dL (6.4-8.2) Albumin 4.0 g/dL (3.4-5.0) Albumin/Globulin Ratio 1.1 (1.0-1.7) FiO2 35 35 Test 02/23/18 03:11 02/23/18 10:10 02/23/18 12:05 02/24/18 03:25 Nasal Screen MRSA (PCR) Negative (Negative) White Blood Count 6.5 x10^3/uL (4.0-11.0) 9.9 x10^3/uL (4.0-11.0) Red Blood Count 4.96 x10^6/uL (4.30-5.70) 4.31 x10^6/uL (4.30-5.70) Hemoglobin 15.3 g/dL (13.0-17.5) 13.3 g/dL (13.0-17.5) Hematocrit 45.0 % (39.0-53.0) 39.2 % (39.0-53.0) Mean Corpuscular Volume 91 fL (79-100) 91 fL (79-100) Mean Corpuscular Hemoglobin 31 pg (25-35) 31 pg (25-35) Mean Corpuscular Hemoglobin Concent 34 g/dL (31-37) 34 g/dL (31-37) Red Cell Distribution Width 15.0 % (11.5-14.5) 14.9 % (11.5-14.5) Platelet Count 230 x10^3/uL (140-400) 222 x10^3/uL (140-400) Neutrophils (%) (Auto) 87 % (31-73) 81 % (31-73) Lymphocytes (%) (Auto) 11 % (24-48) 14 % (24-48) Monocytes (%) (Auto) 2 % (0-9) 5 % (0-9) Eosinophils (%) (Auto) 0 % (0-3) 0 % (0-3) Basophils (%) (Auto) 0 % (0-3) 0 % (0-3) Neutrophils # (Auto) 5.6 x10^3uL (1.8-7.7) 8.0 x10^3uL (1.8-7.7) Lymphocytes # (Auto) 0.7 x10^3/uL (1.0-4.8) 1.4 x10^3/uL (1.0-4.8) Monocytes # (Auto) 0.1 x10^3/uL (0.0-1.1) 0.5 x10^3/uL (0.0-1.1) Eosinophils # (Auto) 0.0 x10^3/uL (0.0-0.7) 0.0 x10^3/uL (0.0-0.7) Basophils # (Auto) 0.0 x10^3/uL (0.0-0.2) 0.0 x10^3/uL (0.0-0.2) Segmented Neutrophils % 77 % (35-66) Band Neutrophils % 11 % (0-9) Lymphocytes % 11 % (24-48) Monocytes % 1 % (0-10) Platelet Estimate Adequate (ADEQUATE) Sodium Level 140 mmol/L (136-145) 139 mmol/L (136-145) Potassium Level 4.7 mmol/L (3.5-5.1) 5.1 mmol/L (3.5-5.1) Chloride Level 101 mmol/L (98-107) 101 mmol/L (98-107) Carbon Dioxide Level 31 mmol/L (21-32) 35 mmol/L (21-32) Anion Gap 8 (6-14) 3 (6-14) Blood Urea Nitrogen 17 mg/dL (8-26) 26 mg/dL (8-26) Creatinine 1.3 mg/dL (0.7-1.3) 1.8 mg/dL (0.7-1.3) Estimated GFR (Cockcroft-Gault) 56.5 38.8 Glucose Level 131 mg/dL (70-99) 119 mg/dL (70-99) Calcium Level 9.0 mg/dL (8.5-10.1) 8.7 mg/dL (8.5-10.1) O2 Saturation 90 % (92-99) Arterial Blood pH 7.38 (7.35-7.45) Arterial Blood pCO2 at Patient Temp 47 mmHg (35-46) Arterial Blood pO2 at Patient Temp 59 mmHg (65-108) Arterial Blood HCO3 27 mmol/L (21-28) Arterial Blood Base Excess 1 mmol/L (-3-3) FiO2 21 Laboratory Tests Test 02/23/18 12:05 02/24/18 03:25 O2 Saturation 90 % (92-99) Arterial Blood pH 7.38 (7.35-7.45) Arterial Blood pCO2 at Patient Temp 47 mmHg (35-46) Arterial Blood pO2 at Patient Temp 59 mmHg (65-108) Arterial Blood HCO3 27 mmol/L (21-28) Arterial Blood Base Excess 1 mmol/L (-3-3) FiO2 21 White Blood Count 9.9 x10^3/uL (4.0-11.0) Red Blood Count 4.31 x10^6/uL (4.30-5.70) Hemoglobin 13.3 g/dL (13.0-17.5) Hematocrit 39.2 % (39.0-53.0) Mean Corpuscular Volume 91 fL (79-100) Mean Corpuscular Hemoglobin 31 pg (25-35) Mean Corpuscular Hemoglobin Concent 34 g/dL (31-37) Red Cell Distribution Width 14.9 % (11.5-14.5) Platelet Count 222 x10^3/uL (140-400) Neutrophils (%) (Auto) 81 % (31-73) Lymphocytes (%) (Auto) 14 % (24-48) Monocytes (%) (Auto) 5 % (0-9) Eosinophils (%) (Auto) 0 % (0-3) Basophils (%) (Auto) 0 % (0-3) Neutrophils # (Auto) 8.0 x10^3uL (1.8-7.7) Lymphocytes # (Auto) 1.4 x10^3/uL (1.0-4.8) Monocytes # (Auto) 0.5 x10^3/uL (0.0-1.1) Eosinophils # (Auto) 0.0 x10^3/uL (0.0-0.7) Basophils # (Auto) 0.0 x10^3/uL (0.0-0.2) Sodium Level 139 mmol/L (136-145) Potassium Level 5.1 mmol/L (3.5-5.1) Chloride Level 101 mmol/L (98-107) Carbon Dioxide Level 35 mmol/L (21-32) Anion Gap 3 (6-14) Blood Urea Nitrogen 26 mg/dL (8-26) Creatinine 1.8 mg/dL (0.7-1.3) Estimated GFR (Cockcroft-Gault) 38.8 Glucose Level 119 mg/dL (70-99) Calcium Level 8.7 mg/dL (8.5-10.1) Brief Hospital Course Mr. Sanders is a 57 old obese male with possibly undiagnosed sleep apnea, comes in because of severe respiratory failure needing BiPAP for the first time. He does smoke and has history of mold exposure. He was in ICU for maybe 24-48 hrs. feeling better but needing BiPAP when necessary. Unfortunately he is self-pay. We have been prescribing DuoNeb's, Spiriva Pulmicort and some steroids. Wheezy on discharge but much better. He wants to be discharged because he has to take care of his who has home health and sicker than he is. I have Rx prednisone taper inhalers and all that I can. But unfortunately cannot provide O2. We will do a 6 minute walk. If he is very S OA on mere 6 minute walk then I cannot DC. Patient seen and examined, discussed with RN Rx on chart Consuls performed pulmonary Procedures performed BiPAP-first time dc 32 mins Discharge Information Condition at Discharge: Improved, Stable Disposition/Orders: D/C to Home Scheduled Albuterol Sulfate (Ventolin Hfa Inhaler) 18 Gm Hfa.aer.ad, 2 PUFF INH Q4HRS for FOR ASTHMA, #1 Ref 0 Prescribed by: MELODIE HENAO on 02/24/188 Benzonatate (Benzonatate) 100 Mg Capsule, 200 MG PO MIN131, #30 Prescribed by: MELODIE HENAO on 02/24/18 1118 Clopidogrel Bisulfate (Plavix) 75 Mg Tablet, 75 MG PO DAILYWBKFT, #30 Ref 0 Prescribed by: MARITZA BUTLER MD on 02/14/187 Last Action: Continued on 02/22/182237 by MELODIE HENAO Doxycycline Hyclate (Doxycycline Hyclate) 100 Mg Tablet, 100 MG PO BID for 7 Days, #14 Prescribed by: MELODIE HENAO on 02/24/18 1118 Furosemide (Furosemide) 20 Mg Tablet, 1 TAB PO DAILY, #30 Ref 0 Prescribed by: MARITZA BUTLER MD on 02/14/187 Last Action: Continued on 02/22/182237 by MELODIE HENAO Ipratropium/Albuterol Sulfate (Duoneb 0.5-3(2.5) Mg/3 Ml) 3 Ml Ampul.neb, 3 ML NEB RTQID, #30 Prescribed by: MELODIE HENAO on 02/24/181117 Isosorbide Mononitrate (Isosorbide Mononitrate Er) 30 Mg Tab.er.24h, 1 TAB PO DAILY, #30 Ref 0 Prescribed by: MARITZA BUTLER MD on 02/14/181146 Last Action: Continued on 02/22/182237 by MELODIE HENAO Levothyroxine Sodium (Synthroid) 150 Mcg Tablet, 150 MCG PO DAILY06 for 30 Days , #30 Prescribed by: MARITZA BUTLER MD on 02/14/181146 Last Action: Converted on 02/22/182237 by MELODIE HENAO Omeprazole (Omeprazole) 20 Mg Tablet.dr, 1 TAB PO DAILY, #30 Ref 0 Prescribed by: MARITZA BUTLER MD on 02/14/181146 Last Action: Converted on 02/22/182237 by MELODIE HENAO Simvastatin (Simvastatin) 20 Mg Tablet, 1 TAB PO QHS, #30 Ref 0 Prescribed by: MARITZA BUTLER MD on 02/14/181146 Last Action: Converted on 02/22/182237 by MELODIE HENAO Tiotropium [place] (Spiriva) 18 Mcg Cap.w.dev, 2 INH IH DAILY, #30 Ref 0 Prescribed by: MELODIE HENAO on 02/24/181117 Scheduled PRN Oxycodone Hcl/Acetaminophen (Oxycodone-Acetaminophen 5-325) 1 Each Tablet, 1 TAB PO PRN Q4HRS PRN for MODERATE PAIN, 2ND CHOICE, #20 Prescribed by: MARITZA BUTLER MD on 02/14/181146 Last Action: Continued on 02/22/182237 by MELODIE HENAO Miscellaneous Medications Budesonide/Formoterol Fumarate (Symbicort 160-4.5 Mcg Inhaler) 10.2 Gm Hfa.aer.ad, (Reported) Entered as Reported by: RAMON DEL TORO on 03/02/17 1415 Last Action: Converted on 02/22/182237 by MELODIE VALLECILLO MD Feb 24, 2018 11:21
[2018-02-24 15:00] VITALS: BP 132/82
== END 2018-02-24 17:55 | disposition home or self-care (01) | DRG 196 ==
LOC: ER 19:13 → 2 NORTH 22:32 → 1 WEST ICU 02-23 02:55 → 5 SOUTH 02-23 16:08
PROVIDERS: ADMIT Internal Medicine; ATTEND Internal Medicine
PROC: 5A09457 Assistance with Respiratory Ventilation, 24-96 Consecutive Hours, Continuous Positive Airway Pressure (ICD-10-PCS; principal; 2018-02-22)
PROC: 5A09357 Assistance with Respiratory Ventilation, Less than 24 Consecutive Hours, Continuous Positive Airway Pressure (ICD-10-PCS; 2018-02-24)
DX: J67.9 Hypersensitivity pneumonitis due to unspecified organic dust (principal); J96.22 Acute and chronic respiratory failure with hypercapnia; J96.21 Acute and chronic respiratory failure with hypoxia; J44.1 Chronic obstructive pulmonary disease with (acute) exacerbation; Z68.1 Body mass index [BMI] 19.9 or less, adult; E03.9 Hypothyroidism, unspecified; F12.90 Cannabis use, unspecified, uncomplicated; F17.200 Nicotine dependence, unspecified, uncomplicated; I10 Essential (primary) hypertension; I25.10 Atherosclerotic heart disease of native coronary artery without angina pectoris; E66.9 Obesity, unspecified; Z82.49 Family history of ischemic heart disease and other diseases of the circulatory system; Z79.899 Other long term (current) drug therapy; Z77.120 Contact with and (suspected) exposure to mold (toxic); Z79.51 Long term (current) use of inhaled steroids; I25.2 Old myocardial infarction
CPT/HCPCS: 36415; 36600; 71045; 80048; 80053; 82805; 83880; 84484; 85007; 85025; 87641; 93005; 94618; 94640; 94660; 96365; 96372; 96375; J0360; J2060; J2930; J3475; J3486; J7030; J7512; J7620; J7626; Q0163; 99285-25

== ENCOUNTER 2018-02-28 12:05 | Inpatient (IN) | payer SELFPAY ==
[~2018-02-28] VITALS: Ht 172.7 cm; Wt 118.6 kg
[~2018-02-28 12:05] MED LIST changes: +BENZ-8 PO; +DOXY100T PO; +IPRA3AMP29 NEB
[2018-02-28] MEDS ORDERED: ALBUTEROL SULFATE 2.5 MG/3 ML NEBU. CONT NEB ONE (12:15)
[2018-02-28] MEDS ORDERED: levOFLOXacin PER PHARMACY. MC PRN (12:15)
[2018-02-28] MEDS ORDERED: methylPREDNISolone SOD SUCC PF 125 MG/2 ML VIAL. IV ONE (12:15)
--- NOTE | 2018-02-28 12:20 | EKG ---
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
--- NOTE | 2018-02-28 12:39 | PHYS DOC ---
Past Medical History Past Medical History: Asthma, CHF, COPD, Gallstones, Hypertension, Hypothyroid , [place] Past Surgical History: Cholecystectomy, Other Additional Past Surgical Histo: 4 cardiac stents Alcohol Use: Rarely Drug Use: Marijuana Adult General Chief Complaint Chief Complaint: SHORTNESS OF BREATH HPI HPI Patient is a 58 year old male who presents to the emergency room with brought in by ambulance chief complaint of shortness of breath worsening when he got home he recently was admitted to the hospital last week for COPD he said he only had a small amount of money so he got his prednisone his antibiotic which he thought were the most important but he has no inhalers at home and medics arrival patient was in moderate respiratory distress breathing close to 40 times a minute with a room air sat of 90% he improved significantly and nebulizer no saturation is 95 on 4 L. He is coming from [employer]. Apparently he was exposed to mold and bleach in the basement. No fever patient just has chest tightness with coughing symptoms are moderate they are improving with no pus paramedics. Review of Systems Review of Systems Constitutional: Denies fever or chills [] Eyes: Denies change in visual acuity, redness, or eye pain [] GI: Denies abdominal pain, nausea, vomiting, bloody stools or diarrhea [] Musculoskeletal: Integument: Denies rash or skin lesions [] Neurologic: Denies headache, focal weakness or sensory changes [] Endocrine: Denies polyuria or polydipsia [] All other systems were reviewed and found to be within normal limits, except as documented in this note. Current Medications Current Medications Current Medications Medications (Trade) Dose Ordered Sig/Genesis Start Time Stop Time Status Last Admin Dose Admin Albuterol Sulfate (Ventolin Neb Soln) 10 mg 1X ONCE 02/28/18 12:15 02/28/18 12:16 DC 02/28/18 12:31 10 MG Levofloxacin/ Dextrose 150 ml @ 100 mls/hr 1X ONCE 02/28/18 12:30 02/28/18 13:59 DC 02/28/18 12:51 100 MLS/HR Levofloxacin/ Dextrose (Levaquin Per Pharmacy) 1 each PRN DAILY PRN 02/28/18 12:15 UNV Methylprednisolone Sodium Succinate (SOLU-Medrol 125MG VIAL) 125 mg 1X ONCE 02/28/18 12:15 02/28/18 12:16 DC 02/28/18 12:39 125 MG Allergies Allergies Allergies Coded Allergies Type Severity Reaction Last Updated Verified ibuprofen Allergy Severe Swelling 05/03/17 Yes Physical Exam Physical Exam Constitutional: Well developed, well nourished, MODERATE distress, non-toxic appearance. [] HENT: Normocephalic, atraumatic, bilateral external ears normal, oropharynx moist, no oral exudates, nose normal. [] Eyes: PERRLA, EOMI, conjunctiva normal, no discharge. [] Neck: Normal range of motion, no tenderness, supple, no stridor. [] Cardiovascular:Heart rate regular rhythm, 2/6 systolic murmur noted Lungs & Thorax: Diffuse bilateral wheezing noted moderate respiratory distress speaking full sentences Abdomen: Bowel sounds normal, soft, no tenderness, no masses, no pulsatile masses. [] Skin: Warm, dry, no erythema, no rash. [] Back: No tenderness, no CVA tenderness. [] Extremities: No tenderness, no cyanosis, no clubbing, ROM intact, 1+ edema bilaterally Neurologic: Alert and oriented X 3, normal motor function, normal sensory function, no focal deficits noted. [] Psychologic: Affect normal, judgement normal, mood normal. [] Current Patient Data Vital Signs Vital Signs Date Time Temp Pulse Resp B/P (MAP) Pulse Ox O2 Delivery O2 Flow Rate FiO2 02/28/18 14:03 96 BiPAP/CPAP 02/28/18 13:30 63 26 140/85 (103) 02/28/18 12:33 2.0 02/28/18 12:05 99.3 99.3 Lab Values Laboratory Tests Test 02/28/18 12:20 02/28/18 12:33 Influenza Type A Antigen Negative (NEGATIVE) Influenza Type B Antigen Negative (NEGATIVE) White Blood Count 9.6 x10^3/uL (4.0-11.0) Red Blood Count 4.86 x10^6/uL (4.30-5.70) Hemoglobin 15.0 g/dL (13.0-17.5) Hematocrit 43.2 % (39.0-53.0) Mean Corpuscular Volume 89 fL (79-100) Mean Corpuscular Hemoglobin 31 pg (25-35) Mean Corpuscular Hemoglobin Concent 35 g/dL (31-37) Red Cell Distribution Width 15.3 % (11.5-14.5) H Platelet Count 235 x10^3/uL (140-400) Neutrophils (%) (Auto) 76 % (31-73) H Lymphocytes (%) (Auto) 19 % (24-48) L Monocytes (%) (Auto) 3 % (0-9) Eosinophils (%) (Auto) 1 % (0-3) Basophils (%) (Auto) 1 % (0-3) Neutrophils # (Auto) 7.3 x10^3uL (1.8-7.7) Lymphocytes # (Auto) 1.8 x10^3/uL (1.0-4.8) Monocytes # (Auto) 0.3 x10^3/uL (0.0-1.1) Eosinophils # (Auto) 0.1 x10^3/uL (0.0-0.7) Basophils # (Auto) 0.1 x10^3/uL (0.0-0.2) Prothrombin Time 12.3 SEC (11.7-14.0) Prothrombin Time INR 1.0 (0.8-1.1) Sodium Level 138 mmol/L (136-145) Potassium Level 4.0 mmol/L (3.5-5.1) Chloride Level 99 mmol/L (98-107) Carbon Dioxide Level 30 mmol/L (21-32) Anion Gap 9 (6-14) Blood Urea Nitrogen 29 mg/dL (8-26) H Creatinine 1.4 mg/dL (0.7-1.3) H Estimated GFR (Cockcroft-Gault) 51.7 BUN/Creatinine Ratio 21 (6-20) H Glucose Level 139 mg/dL (70-99) H Lactic Acid Level 1.9 mmol/L (0.4-2.0) Calcium Level 9.6 mg/dL (8.5-10.1) Total Bilirubin 0.4 mg/dL (0.2-1.0) Aspartate Amino Transferase (AST) 34 U/L (15-37) Alanine Aminotransferase (ALT) 16 U/L (16-63) Alkaline Phosphatase 71 U/L (46-116) Troponin I Quantitative < 0.017 ng/mL (0.000-0.055) GI-Huu-Y-Type Natriuretic Peptide 532 pg/mL (0-124) H Total Protein 7.8 g/dL (6.4-8.2) Albumin 3.9 g/dL (3.4-5.0) Albumin/Globulin Ratio 1.0 (1.0-1.7) Laboratory Tests 02/28/18 12:33 Laboratory Tests 02/28/18 12:33 EKG EKG []EKG shows a normal sinus rhythm with rate of 60 there are T wave inversions in 1 and aVL no STEMI interpreted by me the timing encounter. SIMILAR TO 02/22 Radiology/Procedures Radiology/Procedures [] Impressions: Findings: Single view of the chest is submitted. There is no infiltrate, pneumothorax, or effusion. The pericardial cardiac silhouette is within normal limits in size. Impression: 1. There is no evidence of acute cardiopulmonary disease. Electronically signed by: Elías Etienne MD (02/28/2018 12:45 PM) [id number] DICTATED and SIGNED BY: ELÍAS ETIENNE MD DATE: 02/28/18 1248 Course & Med Decision Making Course & Med Decision Making Pertinent Labs and Imaging studies reviewed. (See chart for details) []58-year-old male with known COPD as well as prior AK was presenting with shortness of breath wheezing borderline hypoxia 90% on room air was quite tachypneic on arrival unfortunately think he warrants admission for her nebulizers and further treatment. In the emergency room the patient received an hour of albuterol continuous nebs. On reassessment the patient was still wheezing a lot and was coughing a lot and appeared to have some bronchospasm was still speaking full sentences but feel that a trial of BiPAP may be helpful FOR WORK OF BREATHING there is also an ABG pending at this time. Spoke with Dr. Mel felder admitted to the hospital for further treatment. Dragon Disclaimer Dragon Disclaimer This electronic medical record was generated, in whole or in part, using a voice recognition dictation system. Departure Departure Impression: Primary Impression: COPD exacerbation Disposition: ADMITTED INPATIENT Admitting Physician: Other Condition: STABLE Referrals: NO PCP (PCP) LEE MADSEN MD Feb 28, 2018 12:39
[2018-02-28 12:48] LABS: INFLUENZA A PATIENT NEGATIVE (NEGATIVE); INFLUENZA B PATIENT NEGATIVE (NEGATIVE)
[2018-02-28 12:49] LABS: BASO # 0.1 x10^3/uL (0.0-0.2); BASO % 1 % (0-3); EOS # 0.1 x10^3/uL (0.0-0.7); EOS % 1 % (0-3); HEMATOCRIT 43.2 % (39.0-53.0); LYMPH # 1.8 x10^3/uL (1.0-4.8); LYMPH % 19 % (24-48); MEAN CORPUSCULAR HEMOGLOBIN 31 pg (25-35); MEAN CORPUSCULAR HGB CONC 35 g/dL (31-37); MEAN CORPUSCULAR VOLUME 89 fL (79-100); MONO # 0.3 x10^3/uL (0.0-1.1); MONO % 3 % (0-9); NEUT # 7.3 x10^3uL (1.8-7.7); NEUT % 76 % (31-73); PLATELET COUNT 235 x10^3/uL (140-400); RED BLOOD COUNT 4.86 x10^6/uL (4.30-5.70); RED CELL DISTRIBUTION WIDTH 15.3 % (11.5-14.5); WHITE BLOOD COUNT 9.6 x10^3/uL (4.0-11.0)
--- NOTE | 2018-02-28 12:49 | RAD ---
PORTABLE CHEST 1V History: Shortness of air Comparison: 02/22/2018 Findings: Single view of the chest is submitted. There is no infiltrate, pneumothorax, or effusion. The pericardial cardiac silhouette is within normal limits in size. Impression: 1. There is no evidence of acute cardiopulmonary disease. Electronically signed by: Tristen Ross MD (02/28/2018 12:45 PM) [id number]
[2018-02-28 12:58] LABS: CALCIUM 9.6 mg/dL (8.5-10.1); CREATININE 1.4 mg/dL (0.7-1.3); GFR 51.7
[2018-02-28 13:01] LABS: PROTHROMBIN TIME PATIENT 12.3 SEC (11.7-14.0)
[2018-02-28 13:15] LABS: ALBUMIN 3.9 g/dL (3.4-5.0); TOTAL BILIRUBIN 0.4 mg/dL (0.2-1.0); TOTAL PROTEIN 7.8 g/dL (6.4-8.2)
[2018-02-28 15:11] LABS: BASE EXCESS ABG 4 mmol/L (-3-3); HCO3 ABG 30 mmol/L (21-28); PCO2 ABG 50 mmHg (35-46); PO2 ABG 83 mmHg (65-108); SAT O2 ABG 95 % (92-99)
[2018-02-28 15:15] LABS: FIO2 ABG 35
--- NOTE | 2018-02-28 16:02 | PDOC1 ---
History and Physical Date of Admission Date of Admission DATE: 02/28/18 TIME: 16:01 Identification/Chief Complaint Chief Complaint Shortness of breath Source Source: Chart review, Patient History of Present Illness History of Present Illness 58 yo M w/ PMHx HTN, hypothyroidism, and COPD p/w worsening shortness of breath. He states he was recently treated with prednisone and doxycycline as well as nebulizers last week. He has prescriptions, but no inhalers or nebulizers at home and has been gradually worsening, feels it is due to bleach and mold exposure while cleaning his basement last week. Brought in by EMS in moderate respiratory distress breathing close to 40 times a minute with a room air sat of 90% on 2L NCO2 per EMS. He was increased to 4L in ED and given steroids and aggressive nebulizers, but was starting to tire out with tripoding and intercostal retractions noted and was placed on BIPAP. After about an hour of BIPAP an ABG was obtained with PCO2 of 50 He does still endorse cough, seen on BIPAP, notes this is improving his work of breathing. On further review his Cr was 1.4, states he has no h/o kidney disease and he was noted with TWI on AVL and lead I. CXR showed no evidence of acute cardiopulmonary disease. BP persistently elevated SBP > 200 and diastolic > 100 as well, admitted for above issues. Past Medical History Cardiovascular: CAD, HTN, [place] Pulmonary: Bronchitis, COPD GI: Other Rheumatologic: No pertinent hx Infectious disease: No pertinent hx Endocrine: Hypothyroidism Past Surgical History Past Surgical History: Other Family History Family History: No Significant Social History Smoke: Quit ALCOHOL: rare Drugs: Marijuana, Crystal meth Current Medications Current Medications Current Medications Albuterol Sulfate (Ventolin Neb Soln) 10 mg 1X ONCE CONT NEB Last administered on 02/28/18at 12:31; Start 02/28/18 at 12:15; Stop 02/28/18 at 12:16 ; Status DC Methylprednisolone Sodium Succinate (SOLU-Medrol 125MG VIAL) 125 mg 1X ONCE IV Last administered on 02/28/18at 12:39; Start 02/28/18 at 12:15; Stop 02/28/18 at 12:16; Status DC Levofloxacin/ Dextrose (Levaquin Per Pharmacy) 1 each PRN DAILY PRN MC SEE COMMENTS; Start 02/28/18 at 12:15; Status UNV Levofloxacin/ Dextrose 150 ml @ 100 mls/hr 1X ONCE IV Last administered on at 12:51; Start 02/28/18 at 12:30; Stop 02/28/18 at 13:59; Status DC Albuterol/ Ipratropium (Duoneb) 3 ml RTQID NEB ; Start 02/28/18 at 16:00; Stop 03/01/18 at 15:59 Active Scripts Active Benzonatate 100 Mg Capsule 200 Mg PO [id number] Duoneb 0.5-3(2.5) Mg/3 Ml (Albuterol/Ipratropium) 3 Ml Ampul.neb 3 Ml NEB RTQID Doxycycline Hyclate 100 Mg Tablet 100 Mg PO BID 7 Days Ventolin Hfa Inhaler (Albuterol Sulfate) 18 Gm Hfa.aer.ad 2 Puff INH Q4HRS Spiriva (Tiotropium [place]) 18 Mcg Cap.w.dev 2 Inh IH DAILY Synthroid (Levothyroxine Sodium) 150 Mcg Tablet 150 Mcg PO DAILY06 30 Days Oxycodone-Acetaminophen 5-325 (Oxycodone Hcl/Acetaminophen) 1 Each Tablet 1 Tab PO PRN Q4HRS PRN Omeprazole 20 Mg Tablet.dr 1 Tab PO DAILY Furosemide 20 Mg Tablet 1 Tab PO DAILY Isosorbide Mononitrate Er (Isosorbide Mononitrate) 30 Mg Tab.er.24h 1 Tab PO DAILY Simvastatin 20 Mg Tablet 1 Tab PO QHS Plavix (Clopidogrel Bisulfate) 75 Mg Tablet 75 Mg PO [id number] Reported Symbicort 160-4.5 Mcg Inhaler (Budesonide/Formoterol Fumarate) 10.2 Gm Hfa.aer.ad Allergies Allergies: Coded Allergies: ibuprofen (Verified Allergy, Severe, Swelling, 05/03/17) TONGUE SWELLS ROS General: YES: Fatigue, Malaise; No: Chills, Night Sweats, Appetite, Other PSYCHOLOGICAL ROS: No: Anxiety, Behavioral Disorder, Concentration difficultie , Decreased libido, Depression, Disorientation, Hallucinations, Hostility, Irritablity, Memory difficulties, Mood Swings, Obsessive thoughts, Physical abuse, Sexual abuse, Sleep disturbances, Suicidal ideation, Other Eyes: No Blurry vision, No Decreased vision, No Double vision, No Dry eyes, No Excessive tearing, No Eye Pain, No Itchy Eyes, No Loss of vision, No Photophobia , No Scotomata, No Uses contacts, No Uses glasses, No Other HEENT: No: Heacaches, Visual Changes, Hearing change, Nasal congestion, Nasal discharge, Oral lesions, Sinus pain, Sore Throat, Epistaxis, Sneezing, Snoring, Tinnitus, Vertigo, Vocal changes, Other ALLERGY AND IMMUNOLOGY: No: Hives, Insect Bite Sensitivity, Itchy/Watery Eyes, Nasal Congestion, Post Nasal Drip, Seasonal Allergies, Other Hematological and Lymphatic: No: Bleeding Problems, Blood Clots, Blood Transfusions, Brusing, Night Sweats, Pallor, Swollen Lymph Nodes, Other ENDOCRINE: No: Breast Changes, Galactorrhea, Hair Pattern Changes, Hot Flashes , Malaise/lethargy, Mood Swings, Palpitations, Polydipsia/polyuria, Skin Changes , Temperature Intolerance, Unexpected Weight Changes, Other Respiratory: YES: Cough, Shortness of breath, SOB with excertion, Tachypnea, Wheezing; No: Hemoptysis, Orthopnea, Pleuritic Pain, Sputum Changes, Stridor, Other Cardiovascular: No Chest Pain, No Palpitations, No Orthopnea, No Paroxysmal Noc. Dyspnea, No Edema, No Lt Headedness, No Other Gastrointestinal: Yes Nausea; No Vomiting, No Abdominal Pain, No Diarrhea, No Constipation, No Melena, No Hematochezia, No Other Genitourinary: No Dysuria, No Frequency, No Incontinence, No Hematuria, No Retention, No Discharge, No Urgency, No Pain, No Flank Pain, No Other, No , No , No , No , No , No , No Musculoskeletal: Yes Muscular Weakness; No Gait Disturbance, No Joint Pain, No Joint Stiffness, No Joint Swelling, No Muscle Pain, No Pain In:, No Swelling In:, No Other Neurological: No Behavorial Changes, No Bowel/Bladder ControlChng, No Confusion , No Dizziness, No Gait Disturbance, No Headaches, No Impaired Coord/balance, No Memory Loss, No Numbness/Tingling, No Seizures, No Speech Problems, No Tremors, No Visual Changes, No Weakness, No Other Skin: No Dry Skin, No Eczema, No Hair Changes, No Lumps, No Mole Changes, No Mottling, No Nail Changes, No Pruritus, No Rash, No Skin Lesion Changes, No Other, No Acne Physical Exam General: Alert, Oriented X3, Cooperative, moderate distress HEENT: Atraumatic, PERRLA, EOMI, Mucous membr. moist/pink Lungs: Other (Diffuse wheezing, prolonged expiratory phase) Heart: S1S2, RRR, no murmurs Abdomen: Normal bowel sounds, Soft, No tenderness, No hepatosplenomegaly, No masses Extremities: No clubbing, No cyanosis, No edema, Normal pulses, No tenderness/ swelling Skin: No rashes, No breakdown, No significant lesion Neuro: Normal gait, Normal speech, Strength at 5/5 X4 ext, Normal tone, Sensation intact, Cranial nerves 3-12 NL, Reflexes 2+ Psych/Mental Status: Mental status NL, Mood NL Vitals Vitals Vital Signs Date Time Temp Pulse Resp B/P (MAP) Pulse Ox O2 Delivery O2 Flow Rate FiO2 02/28/18 15:30 54 20 179/112 (134) 95 Room Air 02/28/18 12:33 2.0 02/28/18 12:05 99.3 99.3 Labs Labs Laboratory Tests Test 02/28/18 12:20 02/28/18 12:33 02/28/18 15:05 Influenza Type A Antigen Negative (NEGATIVE) Influenza Type B Antigen Negative (NEGATIVE) White Blood Count 9.6 x10^3/uL (4.0-11.0) Red Blood Count 4.86 x10^6/uL (4.30-5.70) Hemoglobin 15.0 g/dL (13.0-17.5) Hematocrit 43.2 % (39.0-53.0) Mean Corpuscular Volume 89 fL (79-100) Mean Corpuscular Hemoglobin 31 pg (25-35) Mean Corpuscular Hemoglobin Concent 35 g/dL (31-37) Red Cell Distribution Width 15.3 % (11.5-14.5) Platelet Count 235 x10^3/uL (140-400) Neutrophils (%) (Auto) 76 % (31-73) Lymphocytes (%) (Auto) 19 % (24-48) Monocytes (%) (Auto) 3 % (0-9) Eosinophils (%) (Auto) 1 % (0-3) Basophils (%) (Auto) 1 % (0-3) Neutrophils # (Auto) 7.3 x10^3uL (1.8-7.7) Lymphocytes # (Auto) 1.8 x10^3/uL (1.0-4.8) Monocytes # (Auto) 0.3 x10^3/uL (0.0-1.1) Eosinophils # (Auto) 0.1 x10^3/uL (0.0-0.7) Basophils # (Auto) 0.1 x10^3/uL (0.0-0.2) Prothrombin Time 12.3 SEC (11.7-14.0) Prothromb Time International Ratio 1.0 (0.8-1.1) Sodium Level 138 mmol/L (136-145) Potassium Level 4.0 mmol/L (3.5-5.1) Chloride Level 99 mmol/L (98-107) Carbon Dioxide Level 30 mmol/L (21-32) Anion Gap 9 (6-14) Blood Urea Nitrogen 29 mg/dL (8-26) Creatinine 1.4 mg/dL (0.7-1.3) Estimated GFR (Cockcroft-Gault) 51.7 BUN/Creatinine Ratio 21 (6-20) Glucose Level 139 mg/dL (70-99) Lactic Acid Level 1.9 mmol/L (0.4-2.0) Calcium Level 9.6 mg/dL (8.5-10.1) Total Bilirubin 0.4 mg/dL (0.2-1.0) Aspartate Amino Transf (AST/SGOT) 34 U/L (15-37) Alanine Aminotransferase (ALT/SGPT) 16 U/L (16-63) Alkaline Phosphatase 71 U/L (46-116) Troponin I Quantitative < 0.017 ng/mL (0.000-0.055) AX-Mrp-E-Type Natriuretic Peptide 532 pg/mL (0-124) Total Protein 7.8 g/dL (6.4-8.2) Albumin 3.9 g/dL (3.4-5.0) Albumin/Globulin Ratio 1.0 (1.0-1.7) O2 Saturation 95 % (92-99) Arterial Blood pH 7.40 (7.35-7.45) Arterial Blood pCO2 at Patient Temp 50 mmHg (35-46) Arterial Blood pO2 at Patient Temp 83 mmHg (65-108) Arterial Blood HCO3 30 mmol/L (21-28) Arterial Blood Base Excess 4 mmol/L (-3-3) FiO2 35 Laboratory Tests Test 02/28/18 12:20 02/28/18 12:33 02/28/18 15:05 Influenza Type A Antigen Negative (NEGATIVE) Influenza Type B Antigen Negative (NEGATIVE) White Blood Count 9.6 x10^3/uL (4.0-11.0) Red Blood Count 4.86 x10^6/uL (4.30-5.70) Hemoglobin 15.0 g/dL (13.0-17.5) Hematocrit 43.2 % (39.0-53.0) Mean Corpuscular Volume 89 fL (79-100) Mean Corpuscular Hemoglobin 31 pg (25-35) Mean Corpuscular Hemoglobin Concent 35 g/dL (31-37) Red Cell Distribution Width 15.3 % (11.5-14.5) Platelet Count 235 x10^3/uL (140-400) Neutrophils (%) (Auto) 76 % (31-73) Lymphocytes (%) (Auto) 19 % (24-48) Monocytes (%) (Auto) 3 % (0-9) Eosinophils (%) (Auto) 1 % (0-3) Basophils (%) (Auto) 1 % (0-3) Neutrophils # (Auto) 7.3 x10^3uL (1.8-7.7) Lymphocytes # (Auto) 1.8 x10^3/uL (1.0-4.8) Monocytes # (Auto) 0.3 x10^3/uL (0.0-1.1) Eosinophils # (Auto) 0.1 x10^3/uL (0.0-0.7) Basophils # (Auto) 0.1 x10^3/uL (0.0-0.2) Prothrombin Time 12.3 SEC (11.7-14.0) Prothromb Time International Ratio 1.0 (0.8-1.1) Sodium Level 138 mmol/L (136-145) Potassium Level 4.0 mmol/L (3.5-5.1) Chloride Level 99 mmol/L (98-107) Carbon Dioxide Level 30 mmol/L (21-32) Anion Gap 9 (6-14) Blood Urea Nitrogen 29 mg/dL (8-26) Creatinine 1.4 mg/dL (0.7-1.3) Estimated GFR (Cockcroft-Gault) 51.7 BUN/Creatinine Ratio 21 (6-20) Glucose Level 139 mg/dL (70-99) Lactic Acid Level 1.9 mmol/L (0.4-2.0) Calcium Level 9.6 mg/dL (8.5-10.1) Total Bilirubin 0.4 mg/dL (0.2-1.0) Aspartate Amino Transf (AST/SGOT) 34 U/L (15-37) Alanine Aminotransferase (ALT/SGPT) 16 U/L (16-63) Alkaline Phosphatase 71 U/L (46-116) Troponin I Quantitative < 0.017 ng/mL (0.000-0.055) HZ-Uoi-L-Type Natriuretic Peptide 532 pg/mL (0-124) Total Protein 7.8 g/dL (6.4-8.2) Albumin 3.9 g/dL (3.4-5.0) Albumin/Globulin Ratio 1.0 (1.0-1.7) O2 Saturation 95 % (92-99) Arterial Blood pH 7.40 (7.35-7.45) Arterial Blood pCO2 at Patient Temp 50 mmHg (35-46) Arterial Blood pO2 at Patient Temp 83 mmHg (65-108) Arterial Blood HCO3 30 mmol/L (21-28) Arterial Blood Base Excess 4 mmol/L (-3-3) FiO2 35 Images Images CXR - no acute cardiopulmonary disease VTE Prophylaxis Ordered VTE Prophylaxis Devices: Yes VTE Pharmacological Prophylaxi: Yes Assessment/Plan Assessment/Plan A/P: Acute exacerbation of COPD - likely 2/2 lack of access to inhalers, possible h/ o methamphetamine use, bleach and mold exposure. Will get aggressive with nebulizers, add pulmicort nebs, Daily solumedrol. Pulm to see as well, needs f/u Acute hypoxic and hypercapneic combined respiratory failure - very amenable to BIPAP. by his abg he appears to have a component of chronic CO2 retention. Will use BIPAP prn and wean O2 as tolerated. He likely will not need further BIPAP after his short stint in the ED HTN urgency - with Cr of 1.4 appears to be causing vasomotor and HTN nephropathy , cont home meds, add hydralazine PRN Acute renal insufficiency - likely of vasomotor nephropathy etiology considering his poor PO intake with his COPD exacerbation. Will encourage fluids , avoid IVF with his extremely high BP for now Hypothyroid - will cont home levothyroxine FEN - Cardiac diet PPX - heparin for renal failure FULL CODE Inpatient for at least 2 midnights for respiratory failure requiring BIPAP. TYRELL LENZ MD Feb 28, 2018 16:02
[2018-02-28] MEDS: IPRATRPIUM/ALBUTEROL 0.5/2.5MG 3 ML NEBU. NEB SCH ×2 (16:21→20:13)
[2018-02-28] MEDS: oxyCODONE/APAP 5/325 1 TAB TABLET PO PRN (21:11)
[2018-02-28 22:00] VITALS: BP 165/95
[2018-02-28] MEDS ORDERED: ONDANSETRON PF 4 MG/2 ML VIAL. IV PRN (23:30)
[2018-02-28] MEDS ORDERED: oxyCODONE/APAP 5/325 1 TAB TABLET PO PRN (23:30)
[2018-02-28] MEDS ORDERED: ACETAMINOPHEN 325 MG TABLET. PO PRN (23:30)
[2018-02-28] MEDS ORDERED: LACTULOSE 20 GM/30 ML SOLUTION. PO PRN (23:30)
[2018-02-28] MEDS ORDERED: hydrALAZINE 25 MG TABLET PO PRN (23:45)
[2018-03-01] MEDS: oxyCODONE/APAP 5/325 1 TAB TABLET PO PRN ×4 (01:38→21:10)
[2018-03-01 03:00] VITALS: BP 132/89
[2018-03-01] MEDS: LEVOTHYROXINE 150 MCG TABLET PO SCH (05:42)
[2018-03-01] MEDS: HEPARIN for SUB-Q USE 5,000 UNIT/ML VIAL. SQ SCH ×3 (05:47→21:09)
[2018-03-01 07:00] VITALS: BP 166/84
[2018-03-01] MEDS: IPRATRPIUM/ALBUTEROL 0.5/2.5MG 3 ML NEBU. NEB SCH (07:49)
[2018-03-01] MEDS: BUDESONIDE 0.5 MG/2 ML NEBU. NEB SCH ×2 (07:50→20:21)
[2018-03-01] MEDS ORDERED: ALBUTEROL SULFATE 2.5 MG/3 ML NEBU. NEB SCH (08:00)
[2018-03-01] MEDS: CLOPIDOGREL BISULFATE 75 MG TABLET PO SCH (08:26)
[2018-03-01] MEDS: ISOSORBIDE MONONITRATE ER 30 MG TAB.ER.24H PO SCH (08:27)
[2018-03-01] MEDS: PANTOPRAZOLE 40 MG TABLET.DR. PO SCH (08:27)
[2018-03-01] MEDS: BENZONATATE 100 MG CAPSULE. PO SCH ×3 (08:27→21:04)
[2018-03-01] MEDS: SENNOSIDES/DOCUSATE 8.6/50MG TABLET. PO SCH ×2 (08:27→21:04)
[2018-03-01] MEDS: methylPREDNISolone SOD SUCC PF 40 MG/ML VIAL. IV SCH (08:27)
[2018-03-01] MEDS ORDERED: NON FORMULARY ITEM (Tiotropium Bromide (Spiriva) 2 INH) IH SCH (09:00)
[2018-03-01] MEDS ORDERED: FUROSEMIDE 20 MG TABLET PO SCH (09:00)
[2018-03-01 11:00] VITALS: BP 133/94
[2018-03-01] MEDS: ALBUTEROL SULFATE 2.5 MG/3 ML NEBU. NEB SCH ×3 (11:30→20:21)
--- NOTE | 2018-03-01 11:41 | PDOC ---
PROGRESS NOTES History of Present Illness History of Present Illness Assessment/Plan Assessment/Plan A/P: Acute exacerbation of COPD - likely 2/2 lack of access to inhalers, possible h/ o methamphetamine use, bleach and mold exposure. aggressive with nebulizers, add pulmicort nebs, Daily solumedrol. Pulm following Acute hypoxic and hypercapneic combined respiratory failure - very amenable to BIPAP. chronic CO2 retention. BIPAP prn and wean O2 as tolerated. He likely will not need further BIPAP after his short stint in the ED HTN urgency - with Cr of 1.4 appears to be causing vasomotor and HTN nephropathy , cont home meds, hydralazine PRN Acute renal insufficiency - likely of vasomotor nephropathy etiology considering his poor PO intake with his COPD exacerbation. Will encourage fluids , avoid IVF with his extremely high BP for now Hypothyroid - will cont home levothyroxine FEN - Cardiac diet PPX - heparin for renal failure FULL CODE Inpatient for at least 2 midnights for respiratory failure requiring BIPAP. Vitals Vitals Vital Signs Date Time Temp Pulse Resp B/P (MAP) Pulse Ox O2 Delivery O2 Flow Rate FiO2 03/01/18 11:31 98 Nasal Cannula 2.0 03/01/18 10:38 18 03/01/18 08:27 54 166/84 03/01/18 07:00 97.5 97.5 Physical Exam General: Alert, Oriented X3, Cooperative, mild distress, moderate distress Lungs: Clear Abdomen: Normal bowel sounds, Soft, No tenderness, No hepatosplenomegaly, No masses Extremities: No clubbing, No cyanosis, No edema, Normal pulses, No tenderness/ swelling Skin: No rashes, No breakdown, No significant lesion Labs LABS Laboratory Tests Test 02/28/18 12:20 02/28/18 12:33 02/28/18 15:05 03/01/18 08:01 Influenza Type A Antigen Negative (NEGATIVE) Influenza Type B Antigen Negative (NEGATIVE) White Blood Count 9.6 x10^3/uL (4.0-11.0) Red Blood Count 4.86 x10^6/uL (4.30-5.70) Hemoglobin 15.0 g/dL (13.0-17.5) Hematocrit 43.2 % (39.0-53.0) Mean Corpuscular Volume 89 fL (79-100) Mean Corpuscular Hemoglobin 31 pg (25-35) Mean Corpuscular Hemoglobin Concent 35 g/dL (31-37) Red Cell Distribution Width 15.3 % (11.5-14.5) Platelet Count 235 x10^3/uL (140-400) Neutrophils (%) (Auto) 76 % (31-73) Lymphocytes (%) (Auto) 19 % (24-48) Monocytes (%) (Auto) 3 % (0-9) Eosinophils (%) (Auto) 1 % (0-3) Basophils (%) (Auto) 1 % (0-3) Neutrophils # (Auto) 7.3 x10^3uL (1.8-7.7) Lymphocytes # (Auto) 1.8 x10^3/uL (1.0-4.8) Monocytes # (Auto) 0.3 x10^3/uL (0.0-1.1) Eosinophils # (Auto) 0.1 x10^3/uL (0.0-0.7) Basophils # (Auto) 0.1 x10^3/uL (0.0-0.2) Prothrombin Time 12.3 SEC (11.7-14.0) Prothromb Time International Ratio 1.0 (0.8-1.1) Sodium Level 138 mmol/L (136-145) Potassium Level 4.0 mmol/L (3.5-5.1) Chloride Level 99 mmol/L (98-107) Carbon Dioxide Level 30 mmol/L (21-32) Anion Gap 9 (6-14) Blood Urea Nitrogen 29 mg/dL (8-26) Creatinine 1.4 mg/dL (0.7-1.3) Estimated GFR (Cockcroft-Gault) 51.7 BUN/Creatinine Ratio 21 (6-20) Glucose Level 139 mg/dL (70-99) Lactic Acid Level 1.9 mmol/L (0.4-2.0) Calcium Level 9.6 mg/dL (8.5-10.1) Total Bilirubin 0.4 mg/dL (0.2-1.0) Aspartate Amino Transf (AST/SGOT) 34 U/L (15-37) Alanine Aminotransferase (ALT/SGPT) 16 U/L (16-63) Alkaline Phosphatase 71 U/L (46-116) Troponin I Quantitative < 0.017 ng/mL (0.000-0.055) WO-Isv-N-Type Natriuretic Peptide 532 pg/mL (0-124) Total Protein 7.8 g/dL (6.4-8.2) Albumin 3.9 g/dL (3.4-5.0) Albumin/Globulin Ratio 1.0 (1.0-1.7) O2 Saturation 95 % (92-99) Arterial Blood pH 7.40 (7.35-7.45) Arterial Blood pCO2 at Patient Temp 50 mmHg (35-46) Arterial Blood pO2 at Patient Temp 83 mmHg (65-108) Arterial Blood HCO3 30 mmol/L (21-28) Arterial Blood Base Excess 4 mmol/L (-3-3) FiO2 35 Glucose (Fingerstick) 118 mg/dL (70-99) Test 03/01/18 11:28 Glucose (Fingerstick) 123 mg/dL (70-99) Comment Review of Relevant I have reviewed the following items javon (where applicable) has been applied. Labs Laboratory Tests Test 02/28/18 12:20 02/28/18 12:33 02/28/18 15:05 03/01/18 08:01 Influenza Type A Antigen Negative (NEGATIVE) Influenza Type B Antigen Negative (NEGATIVE) White Blood Count 9.6 x10^3/uL (4.0-11.0) Red Blood Count 4.86 x10^6/uL (4.30-5.70) Hemoglobin 15.0 g/dL (13.0-17.5) Hematocrit 43.2 % (39.0-53.0) Mean Corpuscular Volume 89 fL (79-100) Mean Corpuscular Hemoglobin 31 pg (25-35) Mean Corpuscular Hemoglobin Concent 35 g/dL (31-37) Red Cell Distribution Width 15.3 % (11.5-14.5) Platelet Count 235 x10^3/uL (140-400) Neutrophils (%) (Auto) 76 % (31-73) Lymphocytes (%) (Auto) 19 % (24-48) Monocytes (%) (Auto) 3 % (0-9) Eosinophils (%) (Auto) 1 % (0-3) Basophils (%) (Auto) 1 % (0-3) Neutrophils # (Auto) 7.3 x10^3uL (1.8-7.7) Lymphocytes # (Auto) 1.8 x10^3/uL (1.0-4.8) Monocytes # (Auto) 0.3 x10^3/uL (0.0-1.1) Eosinophils # (Auto) 0.1 x10^3/uL (0.0-0.7) Basophils # (Auto) 0.1 x10^3/uL (0.0-0.2) Prothrombin Time 12.3 SEC (11.7-14.0) Prothromb Time International Ratio 1.0 (0.8-1.1) Sodium Level 138 mmol/L (136-145) Potassium Level 4.0 mmol/L (3.5-5.1) Chloride Level 99 mmol/L (98-107) Carbon Dioxide Level 30 mmol/L (21-32) Anion Gap 9 (6-14) Blood Urea Nitrogen 29 mg/dL (8-26) Creatinine 1.4 mg/dL (0.7-1.3) Estimated GFR (Cockcroft-Gault) 51.7 BUN/Creatinine Ratio 21 (6-20) Glucose Level 139 mg/dL (70-99) Lactic Acid Level 1.9 mmol/L (0.4-2.0) Calcium Level 9.6 mg/dL (8.5-10.1) Total Bilirubin 0.4 mg/dL (0.2-1.0) Aspartate Amino Transf (AST/SGOT) 34 U/L (15-37) Alanine Aminotransferase (ALT/SGPT) 16 U/L (16-63) Alkaline Phosphatase 71 U/L (46-116) Troponin I Quantitative < 0.017 ng/mL (0.000-0.055) NQ-Ijf-H-Type Natriuretic Peptide 532 pg/mL (0-124) Total Protein 7.8 g/dL (6.4-8.2) Albumin 3.9 g/dL (3.4-5.0) Albumin/Globulin Ratio 1.0 (1.0-1.7) O2 Saturation 95 % (92-99) Arterial Blood pH 7.40 (7.35-7.45) Arterial Blood pCO2 at Patient Temp 50 mmHg (35-46) Arterial Blood pO2 at Patient Temp 83 mmHg (65-108) Arterial Blood HCO3 30 mmol/L (21-28) Arterial Blood Base Excess 4 mmol/L (-3-3) FiO2 35 Glucose (Fingerstick) 118 mg/dL (70-99) Test 03/01/18 11:28 Glucose (Fingerstick) 123 mg/dL (70-99) Laboratory Tests Test 02/28/18 12:20 02/28/18 12:33 02/28/18 15:05 03/01/18 08:01 Influenza Type A Antigen Negative (NEGATIVE) Influenza Type B Antigen Negative (NEGATIVE) White Blood Count 9.6 x10^3/uL (4.0-11.0) Red Blood Count 4.86 x10^6/uL (4.30-5.70) Hemoglobin 15.0 g/dL (13.0-17.5) Hematocrit 43.2 % (39.0-53.0) Mean Corpuscular Volume 89 fL (79-100) Mean Corpuscular Hemoglobin 31 pg (25-35) Mean Corpuscular Hemoglobin Concent 35 g/dL (31-37) Red Cell Distribution Width 15.3 % (11.5-14.5) Platelet Count 235 x10^3/uL (140-400) Neutrophils (%) (Auto) 76 % (31-73) Lymphocytes (%) (Auto) 19 % (24-48) Monocytes (%) (Auto) 3 % (0-9) Eosinophils (%) (Auto) 1 % (0-3) Basophils (%) (Auto) 1 % (0-3) Neutrophils # (Auto) 7.3 x10^3uL (1.8-7.7) Lymphocytes # (Auto) 1.8 x10^3/uL (1.0-4.8) Monocytes # (Auto) 0.3 x10^3/uL (0.0-1.1) Eosinophils # (Auto) 0.1 x10^3/uL (0.0-0.7) Basophils # (Auto) 0.1 x10^3/uL (0.0-0.2) Prothrombin Time 12.3 SEC (11.7-14.0) Prothromb Time International Ratio 1.0 (0.8-1.1) Sodium Level 138 mmol/L (136-145) Potassium Level 4.0 mmol/L (3.5-5.1) Chloride Level 99 mmol/L (98-107) Carbon Dioxide Level 30 mmol/L (21-32) Anion Gap 9 (6-14) Blood Urea Nitrogen 29 mg/dL (8-26) Creatinine 1.4 mg/dL (0.7-1.3) Estimated GFR (Cockcroft-Gault) 51.7 BUN/Creatinine Ratio 21 (6-20) Glucose Level 139 mg/dL (70-99) Lactic Acid Level 1.9 mmol/L (0.4-2.0) Calcium Level 9.6 mg/dL (8.5-10.1) Total Bilirubin 0.4 mg/dL (0.2-1.0) Aspartate Amino Transf (AST/SGOT) 34 U/L (15-37) Alanine Aminotransferase (ALT/SGPT) 16 U/L (16-63) Alkaline Phosphatase 71 U/L (46-116) Troponin I Quantitative < 0.017 ng/mL (0.000-0.055) WT-Xsb-P-Type Natriuretic Peptide 532 pg/mL (0-124) Total Protein 7.8 g/dL (6.4-8.2) Albumin 3.9 g/dL (3.4-5.0) Albumin/Globulin Ratio 1.0 (1.0-1.7) O2 Saturation 95 % (92-99) Arterial Blood pH 7.40 (7.35-7.45) Arterial Blood pCO2 at Patient Temp 50 mmHg (35-46) Arterial Blood pO2 at Patient Temp 83 mmHg (65-108) Arterial Blood HCO3 30 mmol/L (21-28) Arterial Blood Base Excess 4 mmol/L (-3-3) FiO2 35 Glucose (Fingerstick) 118 mg/dL (70-99) Test 03/01/18 11:28 Glucose (Fingerstick) 123 mg/dL (70-99) Medications Current Medications Albuterol Sulfate (Ventolin Neb Soln) 10 mg 1X ONCE CONT NEB Last administered on 02/28/18at 12:31; Start 02/28/18 at 12:15; Stop 02/28/18 at 12:16 ; Status DC Methylprednisolone Sodium Succinate (SOLU-Medrol 125MG VIAL) 125 mg 1X ONCE IV Last administered on 02/28/18at 12:39; Start 02/28/18 at 12:15; Stop 02/28/18 at 12:16; Status DC Levofloxacin/ Dextrose (Levaquin Per Pharmacy) 1 each PRN DAILY PRN MC SEE COMMENTS; Start 02/28/18 at 12:15 Levofloxacin/ Dextrose 150 ml @ 100 mls/hr 1X ONCE IV Last administered on at 12:51; Start 02/28/18 at 12:30; Stop 02/28/18 at 13:59; Status DC Albuterol/ Ipratropium (Duoneb) 3 ml RTQID NEB Last administered on 03/01/18at 07:49; Start 02/28/18 at 16:00; Stop 03/01/18 at 08:01; Status DC Levofloxacin/ Dextrose 150 ml @ 100 mls/hr DAILY IV Last administered on at 08:28; Start 03/01/18 at 09:00 Oxycodone/ Acetaminophen (Percocet 5/325) 1 tab PRN Q4HRS PRN PO PAIN Last administered on 03/01/18at 10:38; Start 02/28/18 at 20:30 Ondansetron HCl (Zofran) 4 mg PRN Q6HRS PRN IV NAUSEA/VOMITING; Start 02/28/18 at 23:30 Acetaminophen (Tylenol) 650 mg PRN Q6HRS PRN PO Headaches, Temp > 101.5F; Start 02/28/18 at 23:30 Senna/Docusate Sodium (Senna Plus) 1 tab BID PO Last administered on 03/01/18at 08:27; Start 03/01/18 at 09:00 Lactulose (Lactulose) 20 gm PRN Q12HR PRN PO CONSTIPATION; Start 02/28/18 at 23 :30 Heparin Sodium (Porcine) (Heparin Sodium) 5,000 unit Q8HRS SQ Last administered on 03/01/18at 05:47; Start 03/01/18 at 06:00 Clopidogrel Bisulfate (Plavix) 75 mg DAILYWBKFT PO Last administered on at 08:26; Start 03/01/18 at 08:00 Furosemide (Lasix) 20 mg DAILY PO ; Start 03/01/18 at 09:00; Stop 03/01/18 at 09 :00; Status DC Isosorbide Mononitrate (Imdur) 30 mg DAILY PO Last administered on 03/01/18at 08 :27; Start 03/01/18 at 09:00 Oxycodone/ Acetaminophen (Percocet 5/325) 1 tab PRN Q4HRS PRN PO MODERATE PAIN , 2ND CHOICE; Start 02/28/18 at 23:30 Benzonatate (Tessalon Perle) 200 mg [id number] PO Last administered on 03/01/18at 08 :27; Start 03/01/18 at 09:00 Levothyroxine Sodium (Synthroid) 150 mcg DAILY06 PO Last administered on at 05:42; Start 03/01/18 at 06:00 Pantoprazole Sodium (Protonix) 40 mg DAILYAC PO Last administered on 03/01/18at 08:27; Start 03/01/18 at 07:30 Simvastatin (Zocor) 20 mg QHS PO ; Start 03/01/18 at 21:00 Non-Formulary Medication (Tiotropium Borger (Spiriva)) 2 inh DAILY IH ; Start 03/01/18 at 09:00; Status UNV Budesonide (Pulmicort) 0.5 mg RTBID NEB Last administered on 03/01/18at 07:50; Start 03/01/18 at 08:00 Methylprednisolone Sodium Succinate (SOLU-Medrol 40MG VIAL) 40 mg DAILY IV Last administered on 03/01/18at 08:27; Start 03/01/18 at 09:00 Hydralazine HCl (Apresoline) 25 mg PRN TID PRN PO HYPERTENSION, SEE COMMENTS; Start 02/28/18 at 23:45 Albuterol Sulfate (Ventolin Neb Soln) 2.5 mg RTQID NEB ; Start 03/01/18 at 08:00 ; Status UNV Albuterol Sulfate (Ventolin Neb Soln) 2.5 mg RTQID NEB ; Start 03/01/18 at 12:00 Active Scripts Active Benzonatate 100 Mg Capsule 200 Mg PO [id number] Duoneb 0.5-3(2.5) Mg/3 Ml (Albuterol/Ipratropium) 3 Ml Ampul.neb 3 Ml NEB RTQID Doxycycline Hyclate 100 Mg Tablet 100 Mg PO BID 7 Days Ventolin Hfa Inhaler (Albuterol Sulfate) 18 Gm Hfa.aer.ad 2 Puff INH Q4HRS Spiriva (Tiotropium Borger) 18 Mcg Cap.w.dev 2 Inh IH DAILY Synthroid (Levothyroxine Sodium) 150 Mcg Tablet 150 Mcg PO DAILY06 30 Days Oxycodone-Acetaminophen 5-325 (Oxycodone Hcl/Acetaminophen) 1 Each Tablet 1 Tab PO PRN Q4HRS PRN Omeprazole 20 Mg Tablet.dr 1 Tab PO DAILY Furosemide 20 Mg Tablet 1 Tab PO DAILY Isosorbide Mononitrate Er (Isosorbide Mononitrate) 30 Mg Tab.er.24h 1 Tab PO DAILY Simvastatin 20 Mg Tablet 1 Tab PO QHS Plavix (Clopidogrel Bisulfate) 75 Mg Tablet 75 Mg PO DAILYWBKFT Reported Symbicort 160-4.5 Mcg Inhaler (Budesonide/Formoterol Fumarate) 10.2 Gm Hfa.aer.ad Vitals/I & O Vital Sign - Last 24 Hours 02/28/18 02/28/18 02/28/18 02/28/18 12:05 12:30 12:33 13:00 Temp 99.3 99.3 Pulse 66 62 58 Resp 28 24 24 B/P (MAP) 162/102 (122) 175/106 (129) 161/88 (112) Pulse Ox 95 95 95 96 O2 Delivery Nasal Cannula Room Air Nasal Cannula Room Air O2 Flow Rate 2.0 2.0 02/28/18 02/28/18 02/28/18 02/28/18 13:30 14:00 14:03 14:30 Pulse 63 66 64 Resp 26 23 19 B/P (MAP) 140/85 (103) 192/90 (124) 213/105 (141) Pulse Ox 96 94 96 95 O2 Delivery Room Air BiPAP/CPAP BiPAP/CPAP BiPAP/CPAP 02/28/18 02/28/18 02/28/18 02/28/18 15:00 15:01 15:30 16:00 Pulse 66 54 56 Resp 20 20 18 B/P (MAP) 169/100 (123) 179/112 (134) 199/114 (142) Pulse Ox 98 98 95 94 O2 Delivery BiPAP/CPAP BiPAP/CPAP BiPAP/CPAP BiPAP/CPAP 02/28/18 02/28/18 02/28/18 02/28/18 16:30 17:00 17:30 18:00 Pulse 58 58 66 64 Resp 20 16 22 22 B/P (MAP) 211/112 (145) 195/116 (142) 169/100 (123) 186/99 (128) Pulse Ox 97 95 95 94 O2 Delivery BiPAP/CPAP BiPAP/CPAP BiPAP/CPAP Nasal Cannula O2 Flow Rate 2.0 02/28/18 02/28/18 02/28/18 02/28/18 18:30 19:00 19:30 20:00 Pulse 60 62 64 66 B/P (MAP) 160/113 (129) 170/98 (122) 148/82 (104) Pulse Ox 95 94 93 92 O2 Delivery Nasal Cannula Nasal Cannula Nasal Cannula Nasal Cannula O2 Flow Rate 2.0 2.0 2.0 2.0 02/28/18 02/28/18 02/28/18 02/28/18 20:14 20:30 21:00 21:11 Pulse 64 63 B/P (MAP) 168/81 (110) 156/81 (106) Pulse Ox 92 93 94 94 O2 Delivery Nasal Cannula Nasal Cannula Nasal Cannula Nasal Cannula O2 Flow Rate 2.0 2.0 2.0 2.0 02/28/18 02/28/18 03/01/18 03/01/18 21:30 22:00 00:30 00:58 Temp 98.9 98.9 Pulse 65 Resp 22 B/P (MAP) 165/95 (118) Pulse Ox 96 O2 Delivery Nasal Cannula Nasal Cannula BiPAP/CPAP O2 Flow Rate 2.0 2.0 03/01/18 03/01/18 03/01/18 03/01/18 01:38 01:45 03:00 04:06 Temp 97.9 97.9 Pulse 59 Resp 18 20 B/P (MAP) 132/89 (103) Pulse Ox 94 96 96 92 O2 Delivery BiPAP/CPAP BiPAP/CPAP O2 Flow Rate 2.0 03/01/18 03/01/18 03/01/18 03/01/18 05:42 06:03 06:44 07:00 Temp 97.5 97.5 Pulse 54 Resp 18 18 20 B/P (MAP) 166/84 (111) Pulse Ox 92 92 92 98 O2 Delivery Nasal Cannula BiPAP/CPAP Nasal Cannula BiPAP/CPAP O2 Flow Rate 2.0 2.0 11/2/18 03/01/18 03/01/18 03/01/18 07:50 08:27 10:38 11:31 Pulse 54 Resp 18 B/P (MAP) 166/84 Pulse Ox 96 96 98 O2 Delivery Nasal Cannula Nasal Cannula Nasal Cannula O2 Flow Rate 2.0 2.0 2.0 Intake and Output 02/28/18 02/28/18 03/01/18 15:00 23:00 07:00 Intake Total 150 ml 120 ml Output Total 150 ml Balance 150 ml -30 ml DYANA HOSKINS MD Mar 01, 2018 11:41
--- NOTE | 2018-03-01 13:32 | CONS ---
DATE OF CONSULTATION: PULMONARY CONSULTATION ATTENDING PHYSICIAN: Dr. Shaw. REASON FOR CONSULTATION: Dyspnea, COPD exacerbation. HISTORY OF PRESENT ILLNESS: The patient is a 58-year-old morbidly obese male with a BMI of 38.6. He has 30 years of tobacco use. Down to 3 cigarettes a day. He presented to the hospital with dyspnea, bronchospasm and has cough with yellow-green sputum. The patient said that he has mold in his basement. He was wheezing. His oxygen saturations were 90% on 2 liters per EMS. It was increased to 4 liters. He was also placed on BiPAP. His ABG showed a pH of 7.40, pCO2 of 50 and a pO2 of 83 on 35% FiO2. Currently, he is on a nasal cannula. His chest x-ray was reviewed by me and no definite consolidations seen. He had a CT chest in January, which showed some questionable tiny nodules in the left lower lobe, largest being 6 mm. PAST MEDICAL HISTORY: Significant for CAD, hypertension, COPD with ongoing tobaccoism. PAST SURGICAL HISTORY: No recent surgeries. FAMILY HISTORY: Noncontributory. ALLERGIES: IBUPROFEN. MEDICATIONS: Reviewed as listed in the MRAD, including albuterol nebs and steroids along with Levaquin. REVIEW OF SYSTEMS: A 12-point system obtained. Pertinent positives discussed in my history of present illness, otherwise noncontributory. All systems that were negative were reviewed as well. PHYSICAL EXAMINATION: VITAL SIGNS: Reviewed. Blood pressure is 133/94 which is better, afebrile, pulse ox 98% on 2 liters. NECK: Supple. LUNGS: With bilateral expiratory wheezes. CARDIOVASCULAR: Regular rate. ABDOMEN: Soft, obese. EXTREMITIES: With trace pitting edema. LABORATORY DATA: Reviewed. ABGs discussed in my history of present illness. White cell count 9.6, hemoglobin 15.0, platelets are 235. IMPRESSION: 1. Acute hypoxic respiratory failure secondary to acute exacerbation of chronic obstructive pulmonary disease. 2. Acute bronchitis without any definite consolidation. 3. Ongoing tobaccoism. RECOMMENDATIONS: 1. Smoking cessation counseling provided. 2. Continue nasal cannula. 3. Empiric antibiotic Levaquin. 4. Albuterol nebs. 5. Continue Pulmicort nebs. 6. IV steroids with gradual taper. 7. Anticipate hospitalization for a few days. MISA NUNES MD DR: Georges JOB#: [id number] / [id number]
[2018-03-01 15:00] VITALS: BP 124/80
[2018-03-01 19:00] VITALS: BP 121/81
[2018-03-01] MEDS ORDERED: SIMVASTATIN 20 MG TABLET PO SCH (21:00)
[2018-03-01] MEDS: LACTOBACILLUS RHAMNOSUS GG 1 CAPSULE. PO SCH (21:04)
[2018-03-01 22:52] VITALS: BP 113/68
[2018-03-02 03:03] VITALS: BP 164/96
[2018-03-02] MEDS: LEVOTHYROXINE 150 MCG TABLET PO SCH (04:25)
[2018-03-02] MEDS: oxyCODONE/APAP 5/325 1 TAB TABLET PO PRN ×3 (04:26→17:27)
[2018-03-02] MEDS: HEPARIN for SUB-Q USE 5,000 UNIT/ML VIAL. SQ SCH ×2 (04:30→13:39)
[2018-03-02 06:33] LABS: BASO % 0 % (0-3); EOS % 0 % (0-3); HEMATOCRIT 39.5 % (39.0-53.0); HEMOGLOBIN 13.2 g/dL (13.0-17.5); LYMPH # 3.2 x10^3/uL (1.0-4.8); LYMPH % 31 % (24-48); MEAN CORPUSCULAR HEMOGLOBIN 30 pg (25-35); MEAN CORPUSCULAR HGB CONC 34 g/dL (31-37); MEAN CORPUSCULAR VOLUME 90 fL (79-100); MONO # 0.7 x10^3/uL (0.0-1.1); MONO % 7 % (0-9); NEUT # 6.4 x10^3uL (1.8-7.7); NEUT % 62 % (31-73); PLATELET COUNT 223 x10^3/uL (140-400); RED BLOOD COUNT 4.37 x10^6/uL (4.30-5.70); RED CELL DISTRIBUTION WIDTH 15.3 % (11.5-14.5); WHITE BLOOD COUNT 10.3 x10^3/uL (4.0-11.0)
[2018-03-02 06:41] LABS: ALBUMIN 3.4 g/dL (3.4-5.0); CALCIUM 8.7 mg/dL (8.5-10.1); CREATININE 1.5 mg/dL (0.7-1.3); GFR 47.7; POTASSIUM 4.1 mmol/L (3.5-5.1); TOTAL BILIRUBIN 0.2 mg/dL (0.2-1.0); TOTAL PROTEIN 6.9 g/dL (6.4-8.2)
[2018-03-02 07:00] VITALS: BP 154/89
[2018-03-02] MEDS: BUDESONIDE 0.5 MG/2 ML NEBU. NEB SCH ×2 (07:31→19:38)
[2018-03-02] MEDS: ALBUTEROL SULFATE 2.5 MG/3 ML NEBU. NEB SCH ×4 (07:31→19:38)
--- NOTE | 2018-03-02 08:31 | PDOC ---
PROGRESS NOTES History of Present Illness History of Present Illness Assessment/Plan Assessment/Plan A/P: Acute exacerbation of COPD - likely 2/2 lack of access to inhalers, possible h/ o methamphetamine use, bleach and mold exposure. aggressive with nebulizers,bid pulmicort nebs, Daily solumedrol. Pulm following Acute hypoxic and hypercapneic combined respiratory failure - amenable to BIPAP. he does not have at home chronic CO2 retention. BIPAP prn and wean O2 as tolerated. He likely will not need further BIPAP at home HTN urgency - with Cr of 1.4 appears to be causing vasomotor and HTN nephropathy , cont home meds, hydralazine PRN Acute renal insufficiency - likely of vasomotor nephropathy etiology considering his poor PO intake with his COPD exacerbation. Will encourage fluids , Hypothyroid - will cont home levothyroxine FEN - Cardiac diet PPX - sq heparin for renal failure FULL CODE Inpatient for at least 4 midnights for respiratory failure requiring BIPAP. Vitals Vitals Vital Signs Date Time Temp Pulse Resp B/P (MAP) Pulse Ox O2 Delivery O2 Flow Rate FiO2 03/02/18 07:34 99 Nasal Cannula 2.0 03/02/18 05:20 18 03/02/18 03:03 97.8 52 164/96 (118) 97.8 Physical Exam General: Alert, Oriented X3, Cooperative, mild distress, moderate distress, Other (still needs o2) Heart: No murmurs Lungs: Clear, Wheezing Abdomen: Normal bowel sounds, Soft, No tenderness, No hepatosplenomegaly, No masses Extremities: No clubbing, No cyanosis, No edema, Normal pulses, No tenderness/ swelling Skin: No rashes, No breakdown, No significant lesion Labs LABS Laboratory Tests Test 03/01/18 11:28 03/01/18 16:21 03/01/18 21:02 03/02/18 05:20 Glucose (Fingerstick) 123 mg/dL (70-99) 184 mg/dL (70-99) 122 mg/dL (70-99) White Blood Count 10.3 x10^3/uL (4.0-11.0) Red Blood Count 4.37 x10^6/uL (4.30-5.70) Hemoglobin 13.2 g/dL (13.0-17.5) Hematocrit 39.5 % (39.0-53.0) Mean Corpuscular Volume 90 fL (79-100) Mean Corpuscular Hemoglobin 30 pg (25-35) Mean Corpuscular Hemoglobin Concent 34 g/dL (31-37) Red Cell Distribution Width 15.3 % (11.5-14.5) Platelet Count 223 x10^3/uL (140-400) Neutrophils (%) (Auto) 62 % (31-73) Lymphocytes (%) (Auto) 31 % (24-48) Monocytes (%) (Auto) 7 % (0-9) Eosinophils (%) (Auto) 0 % (0-3) Basophils (%) (Auto) 0 % (0-3) Neutrophils # (Auto) 6.4 x10^3uL (1.8-7.7) Lymphocytes # (Auto) 3.2 x10^3/uL (1.0-4.8) Monocytes # (Auto) 0.7 x10^3/uL (0.0-1.1) Eosinophils # (Auto) 0.0 x10^3/uL (0.0-0.7) Basophils # (Auto) 0.0 x10^3/uL (0.0-0.2) Sodium Level 139 mmol/L (136-145) Potassium Level 4.1 mmol/L (3.5-5.1) Chloride Level 100 mmol/L (98-107) Carbon Dioxide Level 34 mmol/L (21-32) Anion Gap 5 (6-14) Blood Urea Nitrogen 27 mg/dL (8-26) Creatinine 1.5 mg/dL (0.7-1.3) Estimated GFR (Cockcroft-Gault) 47.7 BUN/Creatinine Ratio 18 (6-20) Glucose Level 102 mg/dL (70-99) Calcium Level 8.7 mg/dL (8.5-10.1) Total Bilirubin 0.2 mg/dL (0.2-1.0) Aspartate Amino Transf (AST/SGOT) 30 U/L (15-37) Alanine Aminotransferase (ALT/SGPT) 17 U/L (16-63) Alkaline Phosphatase 66 U/L (46-116) Total Protein 6.9 g/dL (6.4-8.2) Albumin 3.4 g/dL (3.4-5.0) Albumin/Globulin Ratio 1.0 (1.0-1.7) Comment Review of Relevant I have reviewed the following items javon (where applicable) has been applied. Labs Laboratory Tests Test 02/28/18 12:20 02/28/18 12:33 02/28/18 15:05 03/01/18 08:01 Influenza Type A Antigen Negative (NEGATIVE) Influenza Type B Antigen Negative (NEGATIVE) White Blood Count 9.6 x10^3/uL (4.0-11.0) Red Blood Count 4.86 x10^6/uL (4.30-5.70) Hemoglobin 15.0 g/dL (13.0-17.5) Hematocrit 43.2 % (39.0-53.0) Mean Corpuscular Volume 89 fL (79-100) Mean Corpuscular Hemoglobin 31 pg (25-35) Mean Corpuscular Hemoglobin Concent 35 g/dL (31-37) Red Cell Distribution Width 15.3 % (11.5-14.5) Platelet Count 235 x10^3/uL (140-400) Neutrophils (%) (Auto) 76 % (31-73) Lymphocytes (%) (Auto) 19 % (24-48) Monocytes (%) (Auto) 3 % (0-9) Eosinophils (%) (Auto) 1 % (0-3) Basophils (%) (Auto) 1 % (0-3) Neutrophils # (Auto) 7.3 x10^3uL (1.8-7.7) Lymphocytes # (Auto) 1.8 x10^3/uL (1.0-4.8) Monocytes # (Auto) 0.3 x10^3/uL (0.0-1.1) Eosinophils # (Auto) 0.1 x10^3/uL (0.0-0.7) Basophils # (Auto) 0.1 x10^3/uL (0.0-0.2) Prothrombin Time 12.3 SEC (11.7-14.0) Prothromb Time International Ratio 1.0 (0.8-1.1) Sodium Level 138 mmol/L (136-145) Potassium Level 4.0 mmol/L (3.5-5.1) Chloride Level 99 mmol/L (98-107) Carbon Dioxide Level 30 mmol/L (21-32) Anion Gap 9 (6-14) Blood Urea Nitrogen 29 mg/dL (8-26) Creatinine 1.4 mg/dL (0.7-1.3) Estimated GFR (Cockcroft-Gault) 51.7 BUN/Creatinine Ratio 21 (6-20) Glucose Level 139 mg/dL (70-99) Lactic Acid Level 1.9 mmol/L (0.4-2.0) Calcium Level 9.6 mg/dL (8.5-10.1) Total Bilirubin 0.4 mg/dL (0.2-1.0) Aspartate Amino Transf (AST/SGOT) 34 U/L (15-37) Alanine Aminotransferase (ALT/SGPT) 16 U/L (16-63) Alkaline Phosphatase 71 U/L (46-116) Troponin I Quantitative < 0.017 ng/mL (0.000-0.055) BG-Ght-H-Type Natriuretic Peptide 532 pg/mL (0-124) Total Protein 7.8 g/dL (6.4-8.2) Albumin 3.9 g/dL (3.4-5.0) Albumin/Globulin Ratio 1.0 (1.0-1.7) O2 Saturation 95 % (92-99) Arterial Blood pH 7.40 (7.35-7.45) Arterial Blood pCO2 at Patient Temp 50 mmHg (35-46) Arterial Blood pO2 at Patient Temp 83 mmHg (65-108) Arterial Blood HCO3 30 mmol/L (21-28) Arterial Blood Base Excess 4 mmol/L (-3-3) FiO2 35 Glucose (Fingerstick) 118 mg/dL (70-99) Test 03/01/18 11:28 03/01/18 16:21 03/01/18 21:02 03/02/18 05:20 Glucose (Fingerstick) 123 mg/dL (70-99) 184 mg/dL (70-99) 122 mg/dL (70-99) White Blood Count 10.3 x10^3/uL (4.0-11.0) Red Blood Count 4.37 x10^6/uL (4.30-5.70) Hemoglobin 13.2 g/dL (13.0-17.5) Hematocrit 39.5 % (39.0-53.0) Mean Corpuscular Volume 90 fL (79-100) Mean Corpuscular Hemoglobin 30 pg (25-35) Mean Corpuscular Hemoglobin Concent 34 g/dL (31-37) Red Cell Distribution Width 15.3 % (11.5-14.5) Platelet Count 223 x10^3/uL (140-400) Neutrophils (%) (Auto) 62 % (31-73) Lymphocytes (%) (Auto) 31 % (24-48) Monocytes (%) (Auto) 7 % (0-9) Eosinophils (%) (Auto) 0 % (0-3) Basophils (%) (Auto) 0 % (0-3) Neutrophils # (Auto) 6.4 x10^3uL (1.8-7.7) Lymphocytes # (Auto) 3.2 x10^3/uL (1.0-4.8) Monocytes # (Auto) 0.7 x10^3/uL (0.0-1.1) Eosinophils # (Auto) 0.0 x10^3/uL (0.0-0.7) Basophils # (Auto) 0.0 x10^3/uL (0.0-0.2) Sodium Level 139 mmol/L (136-145) Potassium Level 4.1 mmol/L (3.5-5.1) Chloride Level 100 mmol/L (98-107) Carbon Dioxide Level 34 mmol/L (21-32) Anion Gap 5 (6-14) Blood Urea Nitrogen 27 mg/dL (8-26) Creatinine 1.5 mg/dL (0.7-1.3) Estimated GFR (Cockcroft-Gault) 47.7 BUN/Creatinine Ratio 18 (6-20) Glucose Level 102 mg/dL (70-99) Calcium Level 8.7 mg/dL (8.5-10.1) Total Bilirubin 0.2 mg/dL (0.2-1.0) Aspartate Amino Transf (AST/SGOT) 30 U/L (15-37) Alanine Aminotransferase (ALT/SGPT) 17 U/L (16-63) Alkaline Phosphatase 66 U/L (46-116) Total Protein 6.9 g/dL (6.4-8.2) Albumin 3.4 g/dL (3.4-5.0) Albumin/Globulin Ratio 1.0 (1.0-1.7) Laboratory Tests Test 03/01/18 11:28 03/01/18 16:21 03/01/18 21:02 03/02/18 05:20 Glucose (Fingerstick) 123 mg/dL (70-99) 184 mg/dL (70-99) 122 mg/dL (70-99) White Blood Count 10.3 x10^3/uL (4.0-11.0) Red Blood Count 4.37 x10^6/uL (4.30-5.70) Hemoglobin 13.2 g/dL (13.0-17.5) Hematocrit 39.5 % (39.0-53.0) Mean Corpuscular Volume 90 fL (79-100) Mean Corpuscular Hemoglobin 30 pg (25-35) Mean Corpuscular Hemoglobin Concent 34 g/dL (31-37) Red Cell Distribution Width 15.3 % (11.5-14.5) Platelet Count 223 x10^3/uL (140-400) Neutrophils (%) (Auto) 62 % (31-73) Lymphocytes (%) (Auto) 31 % (24-48) Monocytes (%) (Auto) 7 % (0-9) Eosinophils (%) (Auto) 0 % (0-3) Basophils (%) (Auto) 0 % (0-3) Neutrophils # (Auto) 6.4 x10^3uL (1.8-7.7) Lymphocytes # (Auto) 3.2 x10^3/uL (1.0-4.8) Monocytes # (Auto) 0.7 x10^3/uL (0.0-1.1) Eosinophils # (Auto) 0.0 x10^3/uL (0.0-0.7) Basophils # (Auto) 0.0 x10^3/uL (0.0-0.2) Sodium Level 139 mmol/L (136-145) Potassium Level 4.1 mmol/L (3.5-5.1) Chloride Level 100 mmol/L (98-107) Carbon Dioxide Level 34 mmol/L (21-32) Anion Gap 5 (6-14) Blood Urea Nitrogen 27 mg/dL (8-26) Creatinine 1.5 mg/dL (0.7-1.3) Estimated GFR (Cockcroft-Gault) 47.7 BUN/Creatinine Ratio 18 (6-20) Glucose Level 102 mg/dL (70-99) Calcium Level 8.7 mg/dL (8.5-10.1) Total Bilirubin 0.2 mg/dL (0.2-1.0) Aspartate Amino Transf (AST/SGOT) 30 U/L (15-37) Alanine Aminotransferase (ALT/SGPT) 17 U/L (16-63) Alkaline Phosphatase 66 U/L (46-116) Total Protein 6.9 g/dL (6.4-8.2) Albumin 3.4 g/dL (3.4-5.0) Albumin/Globulin Ratio 1.0 (1.0-1.7) Microbiology 02/28/18 Blood Culture - Preliminary, Resulted NO GROWTH AFTER 1 DAY Medications Current Medications Albuterol Sulfate (Ventolin Neb Soln) 10 mg 1X ONCE CONT NEB Last administered on 02/28/18at 12:31; Start 02/28/18 at 12:15; Stop 02/28/18 at 12:16 ; Status DC Methylprednisolone Sodium Succinate (SOLU-Medrol 125MG VIAL) 125 mg 1X ONCE IV Last administered on 02/28/18at 12:39; Start 02/28/18 at 12:15; Stop 02/28/18 at 12:16; Status DC Levofloxacin/ Dextrose (Levaquin Per Pharmacy) 1 each PRN DAILY PRN MC SEE COMMENTS; Start 02/28/18 at 12:15 Levofloxacin/ Dextrose 150 ml @ 100 mls/hr 1X ONCE IV Last administered on at 12:51; Start 02/28/18 at 12:30; Stop 02/28/18 at 13:59; Status DC Albuterol/ Ipratropium (Duoneb) 3 ml RTQID NEB Last administered on 03/01/18at 07:49; Start 02/28/18 at 16:00; Stop 03/01/18 at 08:01; Status DC Levofloxacin/ Dextrose 150 ml @ 100 mls/hr DAILY IV Last administered on at 08:28; Start 03/01/18 at 09:00 Oxycodone/ Acetaminophen (Percocet 5/325) 1 tab PRN Q4HRS PRN PO PAIN Last administered on 03/02/18at 04:26; Start 02/28/18 at 20:30 Ondansetron HCl (Zofran) 4 mg PRN Q6HRS PRN IV NAUSEA/VOMITING; Start 02/28/18 at 23:30 Acetaminophen (Tylenol) 650 mg PRN Q6HRS PRN PO Headaches, Temp > 101.5F; Start 02/28/18 at 23:30 Senna/Docusate Sodium (Senna Plus) 1 tab BID PO Last administered on 03/01/18at 21:04; Start 03/01/18 at 09:00 Lactulose (Lactulose) 20 gm PRN Q12HR PRN PO CONSTIPATION; Start 02/28/18 at 23 :30 Heparin Sodium (Porcine) (Heparin Sodium) 5,000 unit Q8HRS SQ Last administered on 03/02/18at 04:30; Start 03/01/18 at 06:00 Clopidogrel Bisulfate (Plavix) 75 mg DAILYWBKFT PO Last administered on at 08:26; Start 03/01/18 at 08:00 Furosemide (Lasix) 20 mg DAILY PO ; Start 03/01/18 at 09:00; Stop 03/01/18 at 09 :00; Status DC Isosorbide Mononitrate (Imdur) 30 mg DAILY PO Last administered on 03/01/18at 08 :27; Start 03/01/18 at 09:00 Oxycodone/ Acetaminophen (Percocet 5/325) 1 tab PRN Q4HRS PRN PO MODERATE PAIN , 2ND CHOICE; Start 02/28/18 at 23:30; Stop 03/01/18 at 15:30; Status DC Benzonatate (Tessalon Perle) 200 mg [id number] PO Last administered on 03/01/18at 21 :04; Start 03/01/18 at 09:00 Levothyroxine Sodium (Synthroid) 150 mcg DAILY06 PO Last administered on at 04:25; Start 03/01/18 at 06:00 Pantoprazole Sodium (Protonix) 40 mg DAILYAC PO Last administered on 03/01/18at 08:27; Start 03/01/18 at 07:30 Simvastatin (Zocor) 20 mg QHS PO Last administered on 03/01/18at 21:04; Start 03/01/18 at 21:00 Non-Formulary Medication (Tiotropium [place] (Spiriva)) 2 inh DAILY IH ; Start 03/01/18 at 09:00; Status UNV Budesonide (Pulmicort) 0.5 mg RTBID NEB Last administered on 03/02/18at 07:31; Start 03/01/18 at 08:00 Methylprednisolone Sodium Succinate (SOLU-Medrol 40MG VIAL) 40 mg DAILY IV Last administered on 03/01/18at 08:27; Start 03/01/18 at 09:00 Hydralazine HCl (Apresoline) 25 mg PRN TID PRN PO HYPERTENSION, SEE COMMENTS; Start 02/28/18 at 23:45 Albuterol Sulfate (Ventolin Neb Soln) 2.5 mg RTQID NEB ; Start 03/01/18 at 08:00 ; Status UNV Albuterol Sulfate (Ventolin Neb Soln) 2.5 mg RTQID NEB Last administered on 03/02/18at 07:31; Start 03/01/18 at 12:00 Lactobacillus Rhamnosus (Culturelle) 1 cap BID PO Last administered on at 21:04; Start 03/01/18 at 21:00 Active Scripts Active Benzonatate 100 Mg Capsule 200 Mg PO [id number] Duoneb 0.5-3(2.5) Mg/3 Ml (Albuterol/Ipratropium) 3 Ml Ampul.neb 3 Ml NEB RTQID Doxycycline Hyclate 100 Mg Tablet 100 Mg PO BID 7 Days Ventolin Hfa Inhaler (Albuterol Sulfate) 18 Gm Hfa.aer.ad 2 Puff INH Q4HRS Spiriva (Tiotropium [place]) 18 Mcg Cap.w.dev 2 Inh IH DAILY Synthroid (Levothyroxine Sodium) 150 Mcg Tablet 150 Mcg PO DAILY06 30 Days Oxycodone-Acetaminophen 5-325 (Oxycodone Hcl/Acetaminophen) 1 Each Tablet 1 Tab PO PRN Q4HRS PRN Omeprazole 20 Mg Tablet.dr 1 Tab PO DAILY Furosemide 20 Mg Tablet 1 Tab PO DAILY Isosorbide Mononitrate Er (Isosorbide Mononitrate) 30 Mg Tab.er.24h 1 Tab PO DAILY Simvastatin 20 Mg Tablet 1 Tab PO QHS Plavix (Clopidogrel Bisulfate) 75 Mg Tablet 75 Mg PO DAILYWBKFT Reported Symbicort 160-4.5 Mcg Inhaler (Budesonide/Formoterol Fumarate) 10.2 Gm Hfa.aer.ad Vitals/I & O Vital Sign - Last 24 Hours 03/01/18 03/01/18 03/01/18 03/01/18 10:38 11:00 11:31 15:00 Temp 97.4 98.2 97.4 98.2 Pulse 62 63 Resp 18 18 18 B/P (MAP) 133/94 (107) 124/80 (95) Pulse Ox 96 90 98 93 O2 Delivery Nasal Cannula Nasal Cannula Nasal Cannula Nasal Cannula O2 Flow Rate 2.0 2.0 2.0 2.0 03/01/18 03/01/18 03/01/18 03/01/18 15:47 19:00 20:14 20:23 Temp 98.2 98.2 Pulse 62 Resp 20 B/P (MAP) 121/81 (94) Pulse Ox 97 99 O2 Delivery Nasal Cannula Nasal Cannula Nasal Cannula Nasal Cannula O2 Flow Rate 2.0 2.0 2.0 2.0 03/01/18 03/01/18 03/02/18 03/02/18 21:10 22:52 03:03 04:26 Temp 97.8 97.8 97.8 97.8 Pulse 85 52 Resp 18 20 23 18 B/P (MAP) 113/68 (83) 164/96 (118) Pulse Ox 99 96 98 98 O2 Delivery Nasal Cannula Nasal Cannula BiPAP/CPAP Nasal Cannula O2 Flow Rate 2.0 2.0 2.0 03/02/18 03/02/18 03/02/18 05:20 07:33 07:34 Resp 18 Pulse Ox 98 99 99 O2 Delivery Nasal Cannula Nasal Cannula Nasal Cannula O2 Flow Rate 2.0 2.0 2.0 Intake and Output 03/01/18 03/01/18 03/02/18 15:00 23:00 07:00 Intake Total 360 ml 360 ml 300 ml Output Total 575 ml 275 ml Balance -215 ml 85 ml 300 ml DYANA HOSKINS MD Mar 02, 2018 08:31
--- NOTE | 2018-03-02 09:26 | PDOC ---
PULMONARY PROGRESS NOTES Subjective no soa Vitals Vital Signs Date Time Temp Pulse Resp B/P (MAP) Pulse Ox O2 Delivery O2 Flow Rate FiO2 03/02/18 07:34 99 Nasal Cannula 2.0 03/02/18 07:00 98.3 54 20 154/89 (110) 98.3 ROS: No Chest Pain General: Alert, No acute distress HEENT: Other Lungs: Clear Cardiovascular: S1, S2 Abdomen: Soft, Non-tender Extremities: Other (1+edema) Labs Laboratory Tests Test 02/28/18 12:20 02/28/18 12:33 02/28/18 15:05 03/01/18 08:01 Influenza Type A Antigen Negative (NEGATIVE) Influenza Type B Antigen Negative (NEGATIVE) White Blood Count 9.6 x10^3/uL (4.0-11.0) Red Blood Count 4.86 x10^6/uL (4.30-5.70) Hemoglobin 15.0 g/dL (13.0-17.5) Hematocrit 43.2 % (39.0-53.0) Mean Corpuscular Volume 89 fL (79-100) Mean Corpuscular Hemoglobin 31 pg (25-35) Mean Corpuscular Hemoglobin Concent 35 g/dL (31-37) Red Cell Distribution Width 15.3 % (11.5-14.5) Platelet Count 235 x10^3/uL (140-400) Neutrophils (%) (Auto) 76 % (31-73) Lymphocytes (%) (Auto) 19 % (24-48) Monocytes (%) (Auto) 3 % (0-9) Eosinophils (%) (Auto) 1 % (0-3) Basophils (%) (Auto) 1 % (0-3) Neutrophils # (Auto) 7.3 x10^3uL (1.8-7.7) Lymphocytes # (Auto) 1.8 x10^3/uL (1.0-4.8) Monocytes # (Auto) 0.3 x10^3/uL (0.0-1.1) Eosinophils # (Auto) 0.1 x10^3/uL (0.0-0.7) Basophils # (Auto) 0.1 x10^3/uL (0.0-0.2) Prothrombin Time 12.3 SEC (11.7-14.0) Prothromb Time International Ratio 1.0 (0.8-1.1) Sodium Level 138 mmol/L (136-145) Potassium Level 4.0 mmol/L (3.5-5.1) Chloride Level 99 mmol/L (98-107) Carbon Dioxide Level 30 mmol/L (21-32) Anion Gap 9 (6-14) Blood Urea Nitrogen 29 mg/dL (8-26) Creatinine 1.4 mg/dL (0.7-1.3) Estimated GFR (Cockcroft-Gault) 51.7 BUN/Creatinine Ratio 21 (6-20) Glucose Level 139 mg/dL (70-99) Lactic Acid Level 1.9 mmol/L (0.4-2.0) Calcium Level 9.6 mg/dL (8.5-10.1) Total Bilirubin 0.4 mg/dL (0.2-1.0) Aspartate Amino Transf (AST/SGOT) 34 U/L (15-37) Alanine Aminotransferase (ALT/SGPT) 16 U/L (16-63) Alkaline Phosphatase 71 U/L (46-116) Troponin I Quantitative < 0.017 ng/mL (0.000-0.055) XC-Kim-X-Type Natriuretic Peptide 532 pg/mL (0-124) Total Protein 7.8 g/dL (6.4-8.2) Albumin 3.9 g/dL (3.4-5.0) Albumin/Globulin Ratio 1.0 (1.0-1.7) O2 Saturation 95 % (92-99) Arterial Blood pH 7.40 (7.35-7.45) Arterial Blood pCO2 at Patient Temp 50 mmHg (35-46) Arterial Blood pO2 at Patient Temp 83 mmHg (65-108) Arterial Blood HCO3 30 mmol/L (21-28) Arterial Blood Base Excess 4 mmol/L (-3-3) FiO2 35 Glucose (Fingerstick) 118 mg/dL (70-99) Test 03/01/18 11:28 03/01/18 16:21 03/01/18 21:02 03/02/18 05:20 Glucose (Fingerstick) 123 mg/dL (70-99) 184 mg/dL (70-99) 122 mg/dL (70-99) White Blood Count 10.3 x10^3/uL (4.0-11.0) Red Blood Count 4.37 x10^6/uL (4.30-5.70) Hemoglobin 13.2 g/dL (13.0-17.5) Hematocrit 39.5 % (39.0-53.0) Mean Corpuscular Volume 90 fL (79-100) Mean Corpuscular Hemoglobin 30 pg (25-35) Mean Corpuscular Hemoglobin Concent 34 g/dL (31-37) Red Cell Distribution Width 15.3 % (11.5-14.5) Platelet Count 223 x10^3/uL (140-400) Neutrophils (%) (Auto) 62 % (31-73) Lymphocytes (%) (Auto) 31 % (24-48) Monocytes (%) (Auto) 7 % (0-9) Eosinophils (%) (Auto) 0 % (0-3) Basophils (%) (Auto) 0 % (0-3) Neutrophils # (Auto) 6.4 x10^3uL (1.8-7.7) Lymphocytes # (Auto) 3.2 x10^3/uL (1.0-4.8) Monocytes # (Auto) 0.7 x10^3/uL (0.0-1.1) Eosinophils # (Auto) 0.0 x10^3/uL (0.0-0.7) Basophils # (Auto) 0.0 x10^3/uL (0.0-0.2) Sodium Level 139 mmol/L (136-145) Potassium Level 4.1 mmol/L (3.5-5.1) Chloride Level 100 mmol/L (98-107) Carbon Dioxide Level 34 mmol/L (21-32) Anion Gap 5 (6-14) Blood Urea Nitrogen 27 mg/dL (8-26) Creatinine 1.5 mg/dL (0.7-1.3) Estimated GFR (Cockcroft-Gault) 47.7 BUN/Creatinine Ratio 18 (6-20) Glucose Level 102 mg/dL (70-99) Calcium Level 8.7 mg/dL (8.5-10.1) Total Bilirubin 0.2 mg/dL (0.2-1.0) Aspartate Amino Transf (AST/SGOT) 30 U/L (15-37) Alanine Aminotransferase (ALT/SGPT) 17 U/L (16-63) Alkaline Phosphatase 66 U/L (46-116) Total Protein 6.9 g/dL (6.4-8.2) Albumin 3.4 g/dL (3.4-5.0) Albumin/Globulin Ratio 1.0 (1.0-1.7) Test 03/02/18 07:54 Glucose (Fingerstick) 124 mg/dL (70-99) Laboratory Tests Test 03/01/18 11:28 03/01/18 16:21 03/01/18 21:02 03/02/18 05:20 Glucose (Fingerstick) 123 mg/dL (70-99) 184 mg/dL (70-99) 122 mg/dL (70-99) White Blood Count 10.3 x10^3/uL (4.0-11.0) Red Blood Count 4.37 x10^6/uL (4.30-5.70) Hemoglobin 13.2 g/dL (13.0-17.5) Hematocrit 39.5 % (39.0-53.0) Mean Corpuscular Volume 90 fL (79-100) Mean Corpuscular Hemoglobin 30 pg (25-35) Mean Corpuscular Hemoglobin Concent 34 g/dL (31-37) Red Cell Distribution Width 15.3 % (11.5-14.5) Platelet Count 223 x10^3/uL (140-400) Neutrophils (%) (Auto) 62 % (31-73) Lymphocytes (%) (Auto) 31 % (24-48) Monocytes (%) (Auto) 7 % (0-9) Eosinophils (%) (Auto) 0 % (0-3) Basophils (%) (Auto) 0 % (0-3) Neutrophils # (Auto) 6.4 x10^3uL (1.8-7.7) Lymphocytes # (Auto) 3.2 x10^3/uL (1.0-4.8) Monocytes # (Auto) 0.7 x10^3/uL (0.0-1.1) Eosinophils # (Auto) 0.0 x10^3/uL (0.0-0.7) Basophils # (Auto) 0.0 x10^3/uL (0.0-0.2) Sodium Level 139 mmol/L (136-145) Potassium Level 4.1 mmol/L (3.5-5.1) Chloride Level 100 mmol/L (98-107) Carbon Dioxide Level 34 mmol/L (21-32) Anion Gap 5 (6-14) Blood Urea Nitrogen 27 mg/dL (8-26) Creatinine 1.5 mg/dL (0.7-1.3) Estimated GFR (Cockcroft-Gault) 47.7 BUN/Creatinine Ratio 18 (6-20) Glucose Level 102 mg/dL (70-99) Calcium Level 8.7 mg/dL (8.5-10.1) Total Bilirubin 0.2 mg/dL (0.2-1.0) Aspartate Amino Transf (AST/SGOT) 30 U/L (15-37) Alanine Aminotransferase (ALT/SGPT) 17 U/L (16-63) Alkaline Phosphatase 66 U/L (46-116) Total Protein 6.9 g/dL (6.4-8.2) Albumin 3.4 g/dL (3.4-5.0) Albumin/Globulin Ratio 1.0 (1.0-1.7) Test 03/02/18 07:54 Glucose (Fingerstick) 124 mg/dL (70-99) Medications Active Scripts Medications Dose Route/Sig Max Daily Dose Days Date Category Benzonatate 100 Mg Capsule 200 Mg PO [id number] 02/24/18 Rx Duoneb 0.5-3(2.5) Mg/3 Ml (Albuterol/Ipratropium) 3 Ml Ampul.neb 3 Ml NEB RTQID 02/24/18 Rx Doxycycline Hyclate 100 Mg Tablet 100 Mg PO BID 7 02/24/18 Rx Ventolin Hfa Inhaler (Albuterol Sulfate) 18 Gm Hfa.aer.ad 2 Puff INH Q4HRS 02/24/18 Rx Spiriva (Tiotropium [place]) 18 Mcg Cap.w.dev 2 Inh IH DAILY 02/24/18 Rx Synthroid (Levothyroxine Sodium) 150 Mcg Tablet 150 Mcg PO DAILY06 30 02/14/18 Rx Oxycodone-Acetaminophen 5-325 (Oxycodone Hcl/Acetaminophen) 1 Each Tablet 1 Tab PO PRN Q4HRS PRN 02/14/18 Rx Omeprazole 20 Mg Tablet.dr 1 Tab PO DAILY 02/14/18 Rx Furosemide 20 Mg Tablet 1 Tab PO DAILY 10/18/18 Rx Isosorbide Mononitrate Er (Isosorbide Mononitrate) 30 Mg Tab.er.24h 1 Tab PO DAILY 02/14/18 Rx Simvastatin 20 Mg Tablet 1 Tab PO QHS 02/14/18 Rx Plavix (Clopidogrel Bisulfate) 75 Mg Tablet 75 Mg PO [id number] 02/14/18 Rx Symbicort 160-4.5 Mcg Inhaler (Budesonide/Formoterol Fumarate) 10.2 Gm Hfa.aer.ad 03/02/17 Reported Impression . 1. Acute hypoxic respiratory failure secondary to acute exacerbation of chronic obstructive pulmonary disease. 2. Acute bronchitis without any definite consolidation. 3. Ongoing tobaccoism. Plan . 1. Smoking cessation counseling provided. 2. Continue nasal cannula. 3. Empiric antibiotic Levaquin. 4. Albuterol nebs. 5. Continue Pulmicort nebs. 6. steroids with gradual taper. 7. Anticipate hospitalization for another day MISA NUNES MD Mar 02, 2018 09:26
[2018-03-02] MEDS: SENNOSIDES/DOCUSATE 8.6/50MG TABLET. PO SCH (10:25)
[2018-03-02] MEDS: LACTOBACILLUS RHAMNOSUS GG 1 CAPSULE. PO SCH (10:25)
[2018-03-02] MEDS: CLOPIDOGREL BISULFATE 75 MG TABLET PO SCH (10:25)
[2018-03-02] MEDS: PANTOPRAZOLE 40 MG TABLET.DR. PO SCH (10:26)
[2018-03-02] MEDS: ISOSORBIDE MONONITRATE ER 30 MG TAB.ER.24H PO SCH (10:26)
[2018-03-02] MEDS: methylPREDNISolone SOD SUCC PF 40 MG/ML VIAL. IV SCH (10:26)
[2018-03-02] MEDS: BENZONATATE 100 MG CAPSULE. PO SCH ×2 (10:38→13:36)
[2018-03-02 11:00] VITALS: BP 130/82
[2018-03-02 15:00] VITALS: BP 141/68
[2018-03-02 19:00] VITALS: BP 194/113
== END 2018-03-02 20:10 | disposition home or self-care (01) | DRG 189 ==
LOC: ER 12:05 → ED HOLD 15:51 → 5 SOUTH 22:11
PROVIDERS: ADMIT Internal Medicine; ATTEND Internal Medicine
PROC: 5A09357 Assistance with Respiratory Ventilation, Less than 24 Consecutive Hours, Continuous Positive Airway Pressure (ICD-10-PCS; principal; 2018-02-28)
PROC: 5A09357 Assistance with Respiratory Ventilation, Less than 24 Consecutive Hours, Continuous Positive Airway Pressure (ICD-10-PCS; 2018-03-01)
PROC: 5A09357 Assistance with Respiratory Ventilation, Less than 24 Consecutive Hours, Continuous Positive Airway Pressure (ICD-10-PCS; 2018-03-02)
DX: J96.01 Acute respiratory failure with hypoxia (principal); N17.0 Acute kidney failure with tubular necrosis; J44.1 Chronic obstructive pulmonary disease with (acute) exacerbation; J44.0 Chronic obstructive pulmonary disease with (acute) lower respiratory infection; E87.2 Acidosis; J96.02 Acute respiratory failure with hypercapnia; I50.9 Heart failure, unspecified; E03.9 Hypothyroidism, unspecified; I25.10 Atherosclerotic heart disease of native coronary artery without angina pectoris; I16.0 Hypertensive urgency; E66.01 Morbid (severe) obesity due to excess calories; F17.210 Nicotine dependence, cigarettes, uncomplicated; J20.9 Acute bronchitis, unspecified; I11.0 Hypertensive heart disease with heart failure; Z53.21 Procedure and treatment not carried out due to patient leaving prior to being seen by health care provider; I25.2 Old myocardial infarction; Z90.49 Acquired absence of other specified parts of digestive tract; Z95.5 Presence of coronary angioplasty implant and graft; Z88.6 Allergy status to analgesic agent; Z77.120 Contact with and (suspected) exposure to mold (toxic); Z68.38 Body mass index [BMI] 38.0-38.9, adult; Z71.6 Tobacco abuse counseling
CPT/HCPCS: 36415; 36600; 71045; 80053; 82805; 82962; 83605; 83880; 84484; 85025; 85610; 87040; 87804; 93005; 94640; 94644; 94660; 94760; 96365; 96366; 96375; J1644; J1956; J2920; J2930; J7613; J7620; J7626; 99285-25